=== PATIENT | male | born 1970 | race African-American/Black ===

== ENCOUNTER 2020-10-02 12:29 | Emergency (ER) | payer MEDICAID, SELFPAY ==
[2020-10-02 12:40] VITALS: BP 116/70; PULSE 90; RESP 16; TEMP 36.3; O2SAT 99; BMI 25.0
== END 2020-10-02 20:12 | disposition left against medical advice (07) ==
PROVIDERS: Emergency Provider Internal Medicine
DX: R79.89 Other specified abnormal findings of blood chemistry (principal)
CPT/HCPCS: 99281; 99282

== ENCOUNTER 2021-08-05 11:51 | Outpatient (REF) | payer OTHER, SELFPAY ==
[2021-08-05 12:29] LABS: COVID-19 Test Negative (Negative)
== END 2021-08-05 11:52 | disposition home or self-care (01) ==
LOC: HO.LAB 11:51
PROVIDERS: Visit Provider Internal Medicine
DX: Z20.822 Contact with and (suspected) exposure to COVID-19 (principal)
CPT/HCPCS: 36415; 87635; C9803

== ENCOUNTER 2022-06-26 10:46 | Inpatient (IN) | payer OTHER, SELFPAY ==
--- NOTE | ~2022-06-26 | CT_ITS ---
EXAMINATION: CT ABDOMEN AND PELVIS WITH CONTRAST CLINICAL INFORMATION: Pancreatitis. Abdominal pain. COMPARISON: None TECHNIQUE: Multidetector volumetric images were obtained from the superior aspect of the liver through the pubic symphysis following administration 85 mL of Omnipaque 350 intravenous contrast. Sagittal and coronal reformatted images were obtained on the technologist's workstation. Oral contrast: Yes This CT examination was performed using dose optimization techniques as appropriate, variously including the following: *Automated exposure control *Adjustment of mA and/or kV according to patient size (this includes techniques or standardized protocols for targeted exams where dose is matched to indication/reason for exam; i.e. extremities or head) *Use of iterative reconstruction technique DLP: 533 mGy-cm FINDINGS: LUNG BASES: The visualized lung bases are unremarkable. LIVER, GALLBLADDER, AND BILIARY TREE: The liver is normal in size and shape. The liver is slightly low in attenuation suggestive of mild fatty infiltration. No focal hepatic lesion or biliary ductal dilatation is present. The gallbladder is unremarkable with no evidence of radiopaque gallstones, gallbladder wall thickening, or obvious pericholecystic inflammatory changes. PANCREAS: The pancreas enhances normally. The pancreas is prominent. There is infiltration of the peripancreatic fat and small amount of fluid surrounding the pancreas. There is a small amount of fluid in the bilateral anterior pararenal fascia and root of the small bowel mesentery and left paracolic gutter. Findings are suggestive of mild pancreatitis. SPLEEN: Unremarkable. ADRENAL GLANDS: Unremarkable. KIDNEYS AND URETERS: The kidneys are normal in size, shape, and attenuation. No hydronephrosis, hydroureter, or calculi seen. Small left renal cyst. No imaging follow-up is indicated.. BLADDER: Unremarkable. GASTROINTESTINAL TRACT: There is mild diverticulosis of the colon. There is mild wall thickening of the left colon and dilatation of the sigmoid colon, likely reactive related to pancreatitis. Small and large bowel is otherwise normal. The appendix is normal. The stomach is normal. ABDOMINAL WALL: No significant hernia is appreciated. LYMPH NODES: Normal. VASCULAR: Unremarkable. PELVIC VISCERA: Unremarkable. OSSEOUS STRUCTURES: Degenerative changes of the spine and hip joints. CT/CT abdomen pelvis w IV con IMPRESSION: Mild acute pancreatitis. Fleischner guidelines were followed.
[2022-06-26 11:09] VITALS: BP 131/101; PULSE 100; RESP 20; TEMP 37.2; O2SAT 97; BMI 26.9
[2022-06-26 11:21] LABS: MANUAL DIFF FLAG NO
[2022-06-26 11:29] LABS: Basophils Percent Auto 0.2 % (0-2); Hematocrit 42.4 % (42.0-52.0); Hemoglobin 13.9 g/dl (14.0-18.0); Imm Gran Abs Auto 0.02 X10*3/uL (0.00-0.03); Imm Gran Pct Auto 0.3 % (0.0-0.4); Lymphocytes Absolute Auto 0.4 X10*3/uL (1.2-4.9); Lymphocytes Percent Auto 6.4 % (20-40); Mean Corpuscular HGB Conc 32.8 g/dl (31.0-36.0); Mean Corpuscular Hemoglobin 29.3 pg (27.0-33.0); Mean Corpuscular Volume 89.3 fL (80.0-98.0); Mean Platelet Volume 8.9 fL (9.4-12.4); Monocytes Absolute Auto 0.4 X10*3/uL (0.1-1.2); Monocytes Percent Auto 7.6 % (2-11); Neutrophils Percent Auto 85.5 % (45-73); Platelet Count 124 X10*3/uL (160-400); Red Blood Count 4.75 X10*6/uL (4.60-5.80); Red Cell Distribution Width 13.3 % (11.0-16.0); White Blood Count 5.8 X10*3/uL (4.8-10.8)
[2022-06-26 11:43] LABS: COVID-19 Test Negative (Negative)
[2022-06-26 11:57] LABS: Alanine Aminotransferase 18 U/L (0-40); Albumin Level 4.5 g/dL (3.5-5.0); Alkaline Phosphatase 42 U/L (39-117); Anion Gap 23 (12-20); Aspartate Amino Transferase 36 U/L (5-37); Bilirubin Direct 0.4 mg/dL (0.0-0.5); Bilirubin Total 0.9 mg/dL (0.0-1.0); Blood Urea Nitrogen 9 mg/dL (9-16); Calcium 8.8 mg/dL (8.4-10.2); Carbon Dioxide 20 mmol/L (22-29); Chloride 97 mmol/L (96-108); Estimated Glomerular Filt Rate > 60; Glucose Random 303 mg/dL (60-115); Potassium 3.6 mmol/L (3.3-5.1); Sodium 136 mmol/L (135-145); Total Protein 7.4 g/dL (6.5-8.0)
[2022-06-26 16:56] VITALS: BP 150/72; PULSE 84; RESP 18; TEMP 36.6; O2SAT 97
--- OUTSIDE RECORDS SUMMARY | 2022-06-26 18:24 | XMS_ITS | Continuity of Care Document ---
:1970 Author Organization [facility] Address [address] [place] [address]- Care Team Providers Name Role Phone Bindu BOJORQUEZ, Gladis Chi Primary Care Physician Encounter [facility] Date(s): 03/16/22 - 04/15/[address] [address] Allergies, Adverse Reactions, Alerts Substance Reaction Severity Status Dilantin rash and itching Persistent Moderate Active Vicodin Active Other Food Allergy1 Active 1pasta Immunizations Not Given Vaccine Date Status Refusal Reason pneumococcal 23-valent vaccine 12/13/17 Not Given P atient Refuses Medications acamprosate 333 mg oral delayed release tablet 1 tablet = 333 mg, By Mouth, 3 times a day, # 90 tablet, 0 Refills, Maintenance, 08/09/20 23:39:00 EST, EC Tablet, Partial fill upon patient request Start Date: 08/09/20 Status: Orderedalbuterol 90 mcg/inh inhalation powder 2 puffs, Inhalation, Every 4 hours, PRN as needed, # 1 each, 0 Refills, Maintenance, 08/09/20 23:38:00 EST, Powder, Partial fill upon patient request Start Date: 08/09/20 Status: OrderedamLODIPine 5 mg oral tablet 5 mg, 1, tablet, By Mouth, Daily, # 30 tablet, Refills 0, Maintenance, 08/09/20 23:34:00 EST, Partial fill upon patient request Start Date: 08/09/20 Status: Orderedatorvastatin 40 mg oral tablet 1 tablet = 40 mg, By Mouth, Daily at bedtime, # 30 tablet, 6 Refills, Maintenance, Tablet, Route to Pharmacy Electronically, [id number], [facility]/pharmacy #[id number] Start Date: 11/20/17 Stop Date: 06/18/18 Status: OrderedFish Oil 1000 mg oral capsule 1 capsule = 1,000 mg, By Mouth, Daily, 0 Refills, Maintenance, 08/09/20 23:37:00 EST, Capsule, Partial fill upon patient request Start Date: 08/09/20 Status: Orderedfolic acid 1 mg oral tablet 1 mg, By Mouth, Daily, # 30 tablet, Refills 0, Tot. Refills 0, Maintenance, 06/08/18 15:06:00 EDT, Route to Pharmacy Electronically, [id number], [facility]/pharmacy #[id number] Start Date: 06/08/18 Stop Date: 07/08/18 Status: Orderedlisinopril 20 mg oral tablet 40 mg, 2, tablet, By Mouth, Daily, # 30 tablet, Refills 0, Maintenance, 05/30/18 1:02:59 EDT Start Date: 05/30/18 Status: Orderedmagnesium oxide 400 mg oral tablet 1 tablet = 400 mg, By Mouth, Daily, # 7 tablet, 0 Refills, Maintenance, 08/09/20 23:36:00 EST, Tablet, Partial fill upon patient request Start Date: 08/09/20 Stop Date: 08/16/20 Status: OrderedmetFORMIN 1000 mg oral tablet 1 tablet = 1,000 mg, By Mouth, Daily, # 60 tablet, 0 Refills, Maintenance, 08/09/20 23:34:00 EST, Tablet, Partial fill upon patient request Start Date: 08/09/20 Status: OrderedMilk of Magnesia 8% oral suspension 30 mL = 2.4 Gm, By Mouth, Daily at bedtime, PRN for constipation, # 300 mL, 0 Refills, Maintenance, 08/14/20 11:28:00 EST, Suspension, [facility]/pharmacy #[id number], Partial fill upon patient request, 170, cm, 08/14/20 7:16:00 EST, Height, 83.2, kg, 08/10/20 3:2... Start Date: 08/14/20 Status: OrderedPhos-NaK Oral Powder 1 pack/packet, By Mouth, 3 times a day, 0 Refills, Maintenance, 08/09/20 23:38:00 EST, Partial fill upon patient request Start Date: 08/09/20 Status: Orderedsildenafil 100 mg oral tablet 1 tablet = 100 mg, By Mouth, Daily, 1 hour before sexual activity; khalil pay, # 10 tablet, 1 Refills,Maintenance, 03/16/22 12:41:00 EDT, Tablet, [facility], Partial fill upon patient request if the prescription is for a schedule II opi... Start Date: 03/16/22 Status: Orderedthiamine 100 mg oral tablet 100 mg, 1, tablet, By Mouth, Daily, # 30 tablet, Refills 0, Maintenance, 05/30/18 1:03:23 EDT Start Date: 05/30/18 Stop Date: 06/29/18 Status: OrderedtraZODone 50 mg oral tablet 100 mg, 2, tablet, By Mouth, Daily at bedtime, Refills 0, Maintenance, 08/14/20 11:24:00 EST, Partial fill upon patient request Start Date: 08/14/20 Status: OrderedZofran 4 mg oral tablet 1 tablet = 4 mg, By Mouth, Every 8 hours, PRN Nausea & Vomiting, # 30 tablet, 0 Refills, Maintenance, 08/14/20 11:29:00 EST, Tablet, [facility]/pharmacy #[id number], Partial fill upon patient request, 170, cm, 08/14/20 7:16:00 EST, Height, 83.2, kg, 08/10/20 3:29:... Start Date: 08/14/20 Status: Ordered Problem List Condition Effective Dates Status Health Status Informant Alcohol abuse(Confirmed) Active Depression(Confirmed) Active Diabetes mellitus(Confirmed) Active Hypertension(Confirmed) Active Social History Social History Type Response Smoking Status Current some day smoker; Tob acco user in household: No entered on: 08/29/13 Sex
--- OUTSIDE RECORDS SUMMARY | 2022-06-26 18:24 | XMS_ITS | Continuity of Care Document ---
:1970 Author Organization [facility] Address [address] [facility], 3rd Floor, [address] [place] [address]- Care Team Providers Name Role Phone Binud BOJORQUEZ, Gladis Chi Primary Care Physician Encounter [facility] [place] Date(s): 08/05/19 - 10/20/19 [facility] [address], [address] Floor, [address] [place] [address]- [facility] Attending Physician: Brayan Torres MD Admitting Physician: Brayan Torres MD Referring Physician: Gladis Ruano NP Allergies, Adverse Reactions, Alerts Substance Reaction Severity Status Dilantin rash and itching Persistent Moderate Active Vicodin Active Other Food Allergy1 Active 1pasta Immunizations Not Given Vaccine Date Status Refusal Reason pneumococcal 23-valent vaccine 12/13/17 Not Given P atient Refuses Medications atorvastatin 40 mg oral tablet 1 tablet = 40 mg, By Mouth, Daily at bedtime, # 30 tablet, 6 Refills, Maintenance, Tablet, Route to Pharmacy Electronically, [id number], [facility]/pharmacy #[id number] Start Date: 11/20/17 Stop Date: 06/18/18 Status: Orderedfolic acid 1 mg oral tablet 1 mg, By Mouth, Daily, # 30 tablet, Refills 0, Tot. Refills 0, Maintenance, 06/08/18 15:06:00 EDT, Route to Pharmacy Electronically, [id number], [facility]/pharmacy #[id number] Start Date: 06/08/18 Stop Date: 07/08/18 Status: OrderedHome BP Monitor Home BP Monitor, See Instructions, # 1 units, Refills 0, Tot. Refills 0, Maintenance, Use daily and as needed for BP check Dx: HTN I10, 09/23/17 14:58:14, Compound Start Date: 09/23/17 Status: Orderedlisinopril 20 mg oral tablet 20 mg, 1, tablet, By Mouth, Daily, # 30 tablet, Refills 0, Maintenance, 05/30/18 1:02:59 EDT Start Date: 05/30/18 Status: Orderedmelatonin 5 mg oral tablet 1 tablet = 5 mg, By Mouth, Daily at bedtime, PRN for insomnia, # 60 tablet, 0 Refills, Maintenance, 05/30/18 1:03:45 EDT, Tablet Start Date: 05/30/18 Status: Orderedmultivitamin Multiple Vitamins oral capsule 1 capsule, By Mouth, Daily, # 30 capsule, 0 Refills, Maintenance, 06/08/18 15:05:53 EDT, Capsule, 1 capsule By Mouth Daily,x30 days Start Date: 06/08/18 Stop Date: 07/08/18 Status: OrderedProtonix 40 mg oral delayed release tablet 1 tablet = 40 mg, By Mouth, 2 times a day, # 60 tablet, 0 Refills, Maintenance, 06/08/18 8:18:58 EDT, EC Tablet Start Date: 06/08/18 Stop Date: 07/08/18 Status: Orderedsertraline 50 mg oral tablet 1 tablet = 50 mg, By Mouth, Daily, # 30 tablet, 0 Refills, Maintenance, 09/23/17 8:34:52, Tablet Start Date: 09/23/17 Stop Date: 10/23/17 Status: Orderedthiamine 100 mg oral tablet 100 mg, 1, tablet, By Mouth, Daily, # 30 tablet, Refills 0, Maintenance, 05/30/18 1:03:23 EDT Start Date: 05/30/18 Stop Date: 06/29/18 Status: Ordered Problem List Condition Effective Dates Status Health Status Informant Alcohol abuse(Confirmed) Active Depression(Confirmed) Active Diabetes mellitus(Confirmed) Active Hypertension(Confirmed) Active Social History Social History Type Response Smoking Status Current some day smoker; Tob acco user in household: No entered on: 08/29/13 Sex
--- OUTSIDE RECORDS SUMMARY | 2022-06-26 18:24 | XMS_ITS | Continuity of Care Document ---
:1970 Author Organization [facility] Address [address] [facility], 3rd Floor, [address] [place] [address]- Care Team Providers Name Role Phone Bindu BOJORQUEZ, Gladis Chi Primary Care Physician [place] [facility] [place] Date[place]s): 09/20/19 - 09/30/19 [facility] [address] [facility], 3rd Floor, [address] [place] [address] [facility] Attending Physician: Geovanna Mcclain Admitting Physician: Geovanna Mcclain Referring Physician: AdmtrGeovanna Allergies, Adverse Reactions, Alerts Substance Reaction Severity [...] Refills, Maintenance, Tablet, Route to Pharmacy Electronically, [id number], [facility]/pharmacy #[id number] Start Date: 11/20/17 Stop Date: 06/18/18 Status: Orderedfolic acid 1 mg oral tablet 1 mg, By Mouth, Daily, # 30 tablet, Refills 0, Tot. Refills 0, Maintenance, 06/08/18 15:06:00 EDT, Route to Pharmacy Electronically, [id number], [facility]/pharmacy #[id number] Start Date: 06/08/18 Stop Date: 07/08/18 [...]
--- OUTSIDE RECORDS SUMMARY | 2022-06-26 18:24 | XMS_ITS | Continuity of Care Document ---
:1970 Author Organization [facility] Address [address] [place] [address]- Care Team Providers Name Role Phone Gladis Ruano NP Primary Care Physician Encounter [facility] Date(s): 07/12/21 - 08/21/[address] [address]- Attending Physician: Not on Staff, Attending MD Referring Physician: Gladis Ruano NP Allergies, [...] Refills, Maintenance, Tablet, Route to Pharmacy Electronically, [id number], [facility]/pharmacy #[id number] Start Date: 11/20/17 Stop Date: 06/18/18 [...] 06/08/18 15:06:00 EDT, Route to Pharmacy Electronically, [id number], [facility]/pharmacy #[id number] Start Date: 06/08/18 Stop Date: [...] 0 Refills, Maintenance, 08/14/20 11:28:00 EST, Suspension, [facility]/pharmacy #[id number], Partial fill upon patient request, 170, cm, 08/14/20 7:16:00 EST, Height, 83.2, kg, 08/10/20 3:2... Start Date: 08/14/20 Status: OrderedPhos-NaK Oral Powder 1 pack/packet, By Mouth, 3 times a day, 0 Refills, Maintenance, 08/09/20 23:38:00 EST, Partial fill upon patient request Start Date: 08/09/20 Status: Orderedthiamine 100 mg oral tablet 100 [...] 0 Refills, Maintenance, 08/14/20 11:29:00 EST, Tablet, [facility]/pharmacy #[id number], Partial fill upon patient request, 170, cm, [...]
--- OUTSIDE RECORDS SUMMARY | 2022-06-26 18:24 | XMS_ITS | Continuity of Care Document ---
:1970 Author Organization [facility] Address [address] [place] [address]- Care Team Providers Name Role Phone Bindu BOJORQUEZ, Gladis Chi Primary Care Physician Encounter [facility] Date(s): 04/23/22 - 05/23/[address] [address] Allergies, Adverse Reactions, Alerts Substance Reaction Severity [...] Refills, Maintenance, Tablet, Route to Pharmacy Electronically, [id number], [facility]/pharmacy #[id number] Start Date: 11/20/17 Stop Date: [...] 06/08/18 15:06:00 EDT, Route to Pharmacy Electronically, [id number], [facility]/pharmacy #[id number] Start Date: 06/08/18 Stop Date: [...] 0 Refills, Maintenance, 08/14/20 11:28:00 EST, Suspension, [facility]/pharmacy #[id number], Partial fill upon patient request, 170, [...] khalil pay, # 10 tablet, 1 Refills,Maintenance, 04/23/22 8:09:00 EDT, Tablet, [facility] Partial fill upon patient request if the prescription is for a schedule II opio... Start Date: 04/23/22 Status: Orderedsildenafil 100 mg oral tablet 1 tablet = 100 mg, By Mouth, Daily, 1 hour before sexual activity; khalil pay, # 10 tablet, 1 Refills,Maintenance, 03/16/22 12:41:00 EDT, Tablet, [facility], Partial fill upon patient request if the [...] 0 Refills, Maintenance, 08/14/20 11:29:00 EST, Tablet, [facility]/pharmacy #[id number], Partial fill upon patient request, 170, cm, 08/14/20 7:16:00 EST, Height, 83.2, kg, 08/10/20 3:29:... Start Date: 08/14/20 Status: Ordered Problem List Condition Effective Dates Status Health Status Informant Alcohol abuse(Confirmed) Active Depression(Confirmed) Active Diabetes mellitus(Confirmed) Active Hypertension(Confirmed) Active Social History Social History Type Response Smoking Status Current some day smoker; Tob acco user in household: No entered on: 08/29/13 Sex Care Team PersonnelName: Gladis Ruano NP Address: [address] [place] [address]-
--- OUTSIDE RECORDS SUMMARY | 2022-06-26 18:24 | XMS_ITS | Continuity of Care Document ---
:1970 Author Organization [facility] Address [address] [facility], 3rd Floor, [address] [place] [address]- Care Team Providers Name Role Phone Bindu BOJORQUEZ, Gladis M Primary Care Physician Encounter [facility] [place] Date(s): 07/26/19 - 10/13/19 [facility] [address], [address], [address] [place] [address] [facility] Attending Physician: Yovany Mcmanus Admitting Physician: Yovany Mcmanus Allergies, Adverse Reactions, Alerts Substance Reaction Severity [...] Refills, Maintenance, Tablet, Route to Pharmacy Electronically, [id number], [facility]/pharmacy #[id number] Start Date: 11/20/17 Stop Date: 06/18/18 Status: Orderedfolic acid 1 mg oral tablet 1 mg, By Mouth, Daily, # 30 tablet, Refills 0, Tot. Refills 0, Maintenance, 06/08/18 15:06:00 EDT, Route to Pharmacy Electronically, [id number], [facility]/pharmacy #[id number] Start Date: 06/08/18 Stop Date: [...]
--- OUTSIDE RECORDS SUMMARY | 2022-06-26 18:24 | XMS_ITS | Continuity of Care Document ---
:1970 Author Organization [facility] Address [address] [place] [address]- Care Team Providers Name Role Phone Bindu BOJORQUEZ, Gladis Chi Primary Care Physician Encounter [facility] Date(s): 09/19/21 - 10/19/[address] [address] Attending Physician: Geovanna Mcclain Admitting Physician: AdmGeovanna herzog Referring Physician: AdmtrGeovanna Allergies, Adverse Reactions, Alerts [...] Refills, Maintenance, Tablet, Route to Pharmacy Electronically, [id number], [facility]/pharmacy #[id number] Start Date: 11/20/17 Stop Date: 06/18/18 [...] 06/08/18 15:06:00 EDT, Route to Pharmacy Electronically, [id number], [facility]/pharmacy #[id number] Start Date: 06/08/18 Stop Date: 07/08/18 [...] 0 Refills, Maintenance, 08/14/20 11:28:00 EST, Suspension, [facility]/pharmacy #[id number], Partial fill upon patient request, 170, [...] 0 Refills, Maintenance, 08/14/20 11:29:00 EST, Tablet, [facility]/pharmacy #[id number], Partial fill upon patient request, 170, cm, [...]
--- NOTE | 2022-06-26 18:26 | ED_ITS ---
HPI - Abdominal Pain General Chief Complaint: Abdominal Pain Stated Complaint: Pancreatitis Time Seen by Provider: 06/26/22 18:18 Source: patient Mode of arrival: ambulatory Limitations: no limitations History of Present Illness HPI narrative: 52-year-old alcoholic with history of pancreatitis presents to emergency department after drinking heavily and having recurrent abdominal pain he states he has having nausea vomiting and recurrent pain he denies any fevers chills denies any falls or injuries. Patient states that when he works for his pain as Demerol and morphine does not work. MD elicited complaint: abdominal pain Related Data Allergies Allergy/AdvReac Type Severity Reaction Status Date / Time fish derived [fish] Allergy Unknown Verified 10/02/20 12:44 phenytoin [From Dilantin] Allergy Unknown Verified 10/02/20 12:44 acetaminophen [From Vicodin] AdvReac Unknown Verified 10/02/20 12:44 hydrocodone [From Vicodin] AdvReac Unknown Verified 10/02/20 12:44 Review of Systems Review of Systems Review of systems: General: Patient denies any fever chills recent illness or falls Musculoskeletal: Denies back pain or body aches or other injuries HEENT: denies headache, runny nose, ear pain Respiratory: denies shortness of breath, cough Cardiovascular: no chest pain or palpitations : denies dysuria, frequency Abdomen: nausea vomiting upper abdominal pain Extremities: no swelling, no pain Skin: no diaphoresis Yes all other systems are reviewed and are negative PMFSH Past Medical History Medical History (Updated 06/26/22 @ 19:26 by Matthew Ellington DO) Chronic pancreatitis Diabetes 1.5, managed as type 2 Hypertension Social History Social History Advance Directives: No Advance Directives Information Provided: No Physical Exam ED Vital Signs: Vital Signs - 24 hr 06/26/22 11:09 06/26/22 16:56 06/26/22 18:51 Temperature 98.9 F 98 F Pulse Rate 100 84 Respiratory Rate 20 18 18 Blood Pressure 131/101 H 150/72 H Pulse Oximetry 97 97 Oxygen Delivery Method Room Air Room Air BMI result Body Mass Index 26.9 General: Well-appearing well-nourished in no signs of distress HEENT: Normocephalic atraumatic? Neck: No signs of JVD, no masses no tenderness or lymphadenopathy Cardiovascular: Regular rate and rhythm Respiratory: Clear to auscultation bilaterally Abdomen: Soft nontender no masses Extremities: Normal pedal pulses no signs of edema Skin: Dry warm no rashes Back: No tenderness full ROM MDM - Abdominal Pain MDM Narrative Medical decision making narrative: Patient with abdominal pain alcohol abuse and pancreatitis I will give fluids morphine haldol and send for CT labs are consistent with pancreatitis. He has known pancreatitis but continues to drink. He thought it would heal itself. I ex plained that the pancreas helps digest things he went out to describe his most recent emesis and was concerned he had digested his stomach. i explained it was not going to show up in his emesis most likely but re-educated him about avoiding alcohol in the future. I will continue with two liters of fluid and pain control. CT still pending I ran the case by medicine and will be admitted. Going to CT at this time. Differential Diagnosis Differential diagnosis: Likely abdominal pain and gastritis Differential diagnosis narrative:: alcoholic pancreatitis Medical Records Attestation: I reviewed the patient's medical records. Lab Data Attestation: I reviewed the patient's lab results. Result diagrams: 06/26/22 11:16 06/26/22 11:16 Labs: Lab Results 06/26/22 06/26/22 06/26/22 Range/Units 11:16 11:16 11:16 WBC 5.8 (4.8-10.8) X10*3/uL RBC 4.75 (4.60-5.80) X10*6/uL Hgb 13.9 L (14.0-18.0) g/dl Hct 42.4 (42.0-52.0) % MCV 89.3 (80.0-98.0) fL MCH 29.3 (27.0-33.0) pg MCHC 32.8 (31.0-36.0) g/dl RDW 13.3 (11.0-16.0) % Plt Count 124 L (160-400) X10*3/uL MPV 8.9 L (9.4-12.4) fL Immature Gran % (Auto) 0.3 (0.0-0.4) % Neut % (Auto) 85.5 H (45-73) % Lymph % (Auto) 6.4 L (20-40) % Grainger % (Auto) 7.6 (2-11) % Eos % (Auto) 0.0 (0-4) % Baso % (Auto) 0.2 (0-2) % Lymph # (Auto) 0.4 L (1.2-4.9) X10*3/uL Grainger # (Auto) 0.4 (0.1-1.2) X10*3/uL Eos # (Auto) 0.0 (0.0-0.4) X10*3/uL Baso # (Auto) 0.0 (0.0-0.2) X10*3/uL Abs Immat Gran (auto) 0.02 (0.00-0.03) X10*3/uL Absolute Neuts (auto) 5.0 (2.0-8.3) x10*3/uL Absolute Nucleated RBC 0.000 (0.0-0.012) X10*3/uL Nucleated RBC % (auto) 0.0 (0.0-0.2) /100WBC Sodium 136 (135-145) mmol/L Potassium 3.6 (3.3-5.1) mmol/L Chloride 97 (96-108) mmol/L Carbon Dioxide 20 L (22-29) mmol/L Anion Gap 23 H (12-20) BUN 9 (9-16) mg/dL Creatinine 1.14 (0.5-1.4) mg/dL Estim Creat Clear Calc 70.0 Estimated GFR > 60 Random Glucose 303 H (60-115) mg/dL Calcium 8.8 (8.4-10.2) mg/dL Total Bilirubin 0.9 (0.0-1.0) mg/dL Direct Bilirubin 0.4 (0.0-0.5) mg/dL AST 36 (5-37) U/L ALT 18 (0-40) U/L Alkaline Phosphatase 42 (39-117) U/L Total Protein 7.4 (6.5-8.0) g/dL Albumin 4.5 (3.5-5.0) g/dL Lipase 2112 H (8-78) U/L Ethyl Alcohol < 10 mg/dL COVID-19 ([facility]ETH) Negative (Negative) COVID-19 Clin Com See Note Discharge Plan Discharge Clinical Impression: Pancreatitis Patient Disposition: Admitted as Observation
[2022-06-26 18:47] LABS: Ethanol < 10 mg/dL
[2022-06-26] MEDS: 0.9 % Sodium Chloride 1,000 ML 999 ML IV ×2 (18:49→22:09)
[2022-06-26] MEDS: Haloperidol Lactate 5 MG/ML VIAL IVPUSH (18:50)
[2022-06-26 18:51] VITALS: RESP 18
[2022-06-26] MEDS: diphenhydrAMINE HCL 50 MG/ML VIAL 25 MG IVPUSH (18:51)
[2022-06-26] MEDS: Morphine Sulfate 4 MG/ML CARTRIDGE IVPUSH (18:51)
[2022-06-26 19:13] LABS: Lipase 2112 U/L (8-78)
[2022-06-26] MEDS: iohexoL 350 MG/ML 100 ML INFUS..BTL IV (20:09)
[2022-06-26 20:18] VITALS: BP 152/74; PULSE 74; RESP 16; TEMP 36.7; O2SAT 97
--- NOTE | 2022-06-26 20:23 | P.HPHOSP_ITS ---
History of Present Illness Date of Service: 06/26/22 Attending physician on admission: Elise Hammonds Chief Complaint: abd pain, tremors, sweats 52-year-old male with history of hypertension, controlled ubo-ffvgbwv-aamfxcmmt type 2 diabetes with last A1c of 6.1%, 2ppd cigarette smoker, history of pancreatitis, and alcohol dependence presented to the ED earlier today for evaluation of diffuse 9/10 abdominal pain radiating to the back bilaterally ongoing for 1 day as well as alcohol withdrawal. He states he consumes 5 24 oz beers daily, last drink was yesterday. He has been experiencing nausea and recurrent episodes of vomiting. States he has had 5 episodes of non bloody emesis today. He has also been experiencing tremors, anxiety and agitation, sweats, occasional palpitations as well as diarrhea. States he has had decreased oral intake over the last 2 weeks. He states he has been hospitalized at various other facilities for acute pancreatitis but continues consuming alcoh ol. He states he has never had a withdrawal seizure. Abd/Ct pending. Lipase >2100. Hematology studies normal. Renal function and lytes stable. Glucose 303. Hepatic function normal. VSS. To be admitted for acute alcohol withdrawal and acute pancreatitis. Review of Systems Review of Systems: General: No fevers, malaise, unintentional weight loss Cardiovascular: No chest pain, palpitations, or leg edema Respiratory: No shortness of breath, wheezing, cough GI: +abdominal pain, +N/V/D. No constipation, melena, hematochezia : No dysuria, hematuria, increased urinary frequency Neuro: No headaches, weakness, paresthesias Psych: +etoh dependence. No illicit drug use Skin: No rashes or lesions COUNTS INCLUDE 234 BEDS AT THE [facility] Medical History (Updated 06/26/22 @ 20:36 by WAGNER Atwood) Acute on chronic pancreatitis Alcohol dependence Chronic pancreatitis Diabetes 1.5, managed as type 2 Hypertension Family History (Updated 06/26/22 @ 20:34 by WAGNER Atwood) Mother Alcohol dependence Diabetes CAD (coronary artery disease) HTN (hypertension) Father Alcohol dependence Social History Advance Directives: No Advance Directives Information Provided: No Meds Allergies Allergy/AdvReac Type Severity Reaction Status Date / Time fish derived [fish] Allergy Unknown Verified 10/02/20 12:44 phenytoin [From Dilantin] Allergy Unknown Verified 10/02/20 12:44 acetaminophen [From Vicodin] AdvReac Unknown Verified 10/02/20 12:44 hydrocodone [From Vicodin] AdvReac Unknown Verified 10/02/20 12:44 Active Medications: Current Medications Docusate Sodium (Docusate Sodium 100 Mg Capsule) 100 mg PO BID PRN PRN Reason: Constipation Enoxaparin Sodium (Enoxaparin Sodium 40 Mg/0.4 Ml Syringe) 40 mg SUBCUT Q24H TAMMY Hydromorphone HCl (Hydromorphone Hcl 1 Mg/Ml Syringe) 0.5 mg IVPUSH Q4H PRN; Protocol PRN Reason: Pain, Severe (Pain Scale 7-10) Ondansetron HCl (Ondansetron Hcl 4 Mg/2 Ml Vial) 4 mg IVPUSH Q8H PRN PRN Reason: Nausea and Vomiting Oxycodone HCl (Oxycodone Hcl Immed Release 5 Mg Tablet) 5 mg PO Q6H PRN PRN Reason: Pain, Moderate (Pain Scale 4-6 Pharmacy Consult (Consult Rx Etoh Phenob Im/Po) 1 each MISCELLANE ONCE PRN; Protocol PRN Reason: Consult order Sodium Chloride (0.9 % Sodium Chloride Flush 3 Ml Syringe) 3 ml IVFLUSH QSHIFT TAMMY Physical Exam Vital Signs and Narrative: Vital Signs: Last Vital Signs Temp 98 F 06/26/22 16:56 Pulse 84 06/26/22 16:56 Resp 18 06/26/22 18:51 BP 150/72 H 06/26/22 16:56 Pulse Ox 97 06/26/22 16:56 O2 Del Method 06/26/22 16:56 BMI result Body Mass Index 26.9 Constitutional - Awake and Alert, No apparent distress Eyes - PERRLA, EOMI Cardiovascular - S1S2, RRR, No edema Respiratory - Normal lung expansion, Normal respiratory effort, No respiratory distress, CTA bilaterally Gastrointestinal - Diffuse ttp with voluntary guarding. ND; +BS; Extremities - no calf tenderness bilaterally, no swelling Skin - Warm/clammy Neurological - Alert but drowsy & oriented x3, CN II-XII in tact, 5/5 strength BUE and BLE. Mild tremors b/l hands Psychological - Appropriate affect Results Labs CBC and Chem 7: 06/26/22 11:16 06/26/22 11:16 Labs: Laboratory Results - last 24 hr 10/06/22 10/06/22 10/06/22 11:16 11:16 11:16 MCV 89.3 MCH 29.3 MCHC 32.8 RDW 13.3 Plt Count 124 L MPV 8.9 L Immature Gran % (Auto) 0.3 Neut % (Auto) 85.5 H Lymph % (Auto) 6.4 L [place] % (Auto) 7.6 Eos % (Auto) 0.0 Baso % (Auto) 0.2 Lymph # (Auto) 0.4 L [place] # (Auto) 0.4 Eos # (Auto) 0.0 Baso # (Auto) 0.0 Abs Immat Gran (auto) 0.02 Absolute Neuts (auto) 5.0 Absolute Nucleated RBC 0.000 Nucleated RBC % (auto) 0.0 Anion Gap 23 H Estim Creat Clear Calc 70.0 Estimated GFR > 60 Random Glucose 303 H Calcium 8.8 Total Bilirubin 0.9 Direct Bilirubin 0.4 AST 36 ALT 18 Alkaline Phosphatase 42 Total Protein 7.4 Albumin 4.5 Lipase 2112 H Ethyl Alcohol < 10 COVID-19 (LIZBETH) Negative COVID-19 Clin Com See Note Assessment and Plan (1) Acute on chronic pancreatitis: Status: Acute (2) Alcohol withdrawal: Status: Acute Plan 52-year-old male with history of hypertension, controlled nhv-astiezm-vzafzyewz type 2 diabetes with last A1c of 6.1%, 2ppd cigarette smoker, history of pancreatitis, and alcohol dependence admitted for abdominal pain with acute on chronic pancreatitis and acute alcohol withdrawal. 1- Acute on chronic pancreatitis r/t alcohol abuse -Multiple admission for pancreatitis -Lipase >2100 -Abd ct/pelvis pending. ?further pathology with dilation large bowel on my review -Aggressive IVF with LR -Follow lipase -NPO for now, advance diet as tolerated -Pain management on pain scale with dilaudid and oxycodone -Ondansetron prn nausea 2-Acute alcohol withdrawal 5 24 oz beers daily, last drink yesterday -tremors, sweats, aggitation, anxiety. No tachycardia -CIWA scale -Phenobarb protocol initiated -no hx etoh w/d seizure -Continue home naltrexone -Addiction consult placed 3-HTN -Continue home meds 4-Type 2 diabetes- noninsulin dependent -Last A1c 6.1% per pt -POC glucose -NPO for now -Humalog SSI 5-Nicotine dependence -NRT ordered DVT proph- lovenox Full code Pt requires inpt stay at least two midnights for management acute pancreatitis requiring IV fluids and for management of acute etoh withdrawal on phenobarb protocol Quality Stroke Does the patient have a stroke diagnosis?: No VTE Prior VTE?: No VTE Risk Level:: Medical - moderate - high VTE Device Contraindication: Treatment Not Indicated VTE Drug Contraindication: N/A - Med Ordered
--- OUTSIDE RECORDS SUMMARY | 2022-06-26 20:27 | XMS_ITS | Continuity of Care Document ---
:1970 Author Organization [facility] Address [address] [place] [address]- Care Team Providers Name Role Phone Bindu BOJORQUEZ, Gladis Chi Primary Care Physician [place] [facility] [place] [id number] Date(s): 07/22/21 - 08/21/[address] [address]- Attending Physician: Geovanna Mcclain Admitting Physician: AdmGeovanna [...] Refills, Maintenance, Tablet, Route to Pharmacy Electronically, [id number], [facility]/pharmacy #[id number] Start Date: 11/20/17 Stop [...] 06/08/18 15:06:00 EDT, Route to Pharmacy Electronically, [id number], [facility]/pharmacy #[id number] Start Date: 06/08/18 Stop [...] 0 Refills, Maintenance, 08/14/20 11:28:00 EST, Suspension, [facility]/pharmacy #[id number], Partial fill upon patient request, [...] 0 Refills, Maintenance, 08/14/20 11:29:00 EST, Tablet, [facility]/pharmacy #[id number], Partial fill upon patient request, [...]
[2022-06-26 20:47] LABS: Glucose, Whole Blood 170 mg/dL (60-115)
--- NOTE | 2022-06-26 21:07 | PC.NURSE ---
Care delayed due to this RN being in another room with a critical pt.
--- NOTE | 2022-06-26 21:23 | PC.NURSE ---
Called Pharmacy for Valium. Pharmacist says that there is no Valium in-house. Notifying Jc Ellington MD to change med.
[2022-06-26 21:42] LABS: Lipase 1719 U/L (8-78)
[2022-06-26] MEDS: Enoxaparin Sodium 40 MG/0.4 ML SYRINGE SUBCUT (22:10)
[2022-06-26] MEDS: PHENobarbitaL sodium 130 MG/ML IM ONCE 210 MG IM (22:11)
[2022-06-26] MEDS: Insulin Lispro 100 UNIT/ML 3 ML VIAL SUBCUT (22:21)
[2022-06-26] MEDS: oxyCODONE HCl Immed Release 5 MG TABLET PO (22:21)
[2022-06-26] MEDS: Lactated Ringers 1,000 ML 150 ML IVCONT (23:33)
[2022-06-26 23:41] VITALS: BP 137/83; PULSE 83; RESP 16; TEMP 36.8; O2SAT 98
[2022-06-27] MEDS: PHENobarbitaL sodium 130 MG/ML VIAL IM Q3Hx2 160 MG IM ×2 (00:51→04:06)
[2022-06-27] MEDS: 0.9 % Sodium Chloride Flush 3 ML SYRINGE IVFLUSH ×3 (00:52→17:14)
[2022-06-27] MEDS: Lactated Ringers 1,000 ML 150 ML IVCONT ×2 (04:07→10:00)
[2022-06-27 07:18] VITALS: BP 142/85; PULSE 70; RESP 19; TEMP 36.8; O2SAT 94
[2022-06-27 07:18] LABS: Glucose, Whole Blood 139 mg/dL (60-115)
[2022-06-27 07:24] LABS: Lipase 872 U/L (8-78)
--- NOTE | 2022-06-27 07:38 | PC.NURSE ---
rn to rn report given to charisse. pt aware of plan of care for transfer to room 376.
[2022-06-27] MEDS: PHENobarbitaL 15 MG TABLET 45 MG PO ×2 (07:56→21:03)
[2022-06-27] MEDS: oxyCODONE HCl Immed Release 5 MG TABLET PO ×2 (07:56→19:25)
[2022-06-27] MEDS: Folic Acid 1 MG TABLET PO (07:56)
[2022-06-27] MEDS: ondansetron HCL 4 MG/2 ML VIAL IVPUSH (07:57)
[2022-06-27] MEDS: Nicotine 21 MG PATCH.TD24 TRANSDERMA (07:57)
[2022-06-27] MEDS: Thiamine HCL 100 MG TABLET PO (07:57)
[2022-06-27] MEDS: Docusate Sodium 100 MG CAPSULE PO (07:57)
[2022-06-27 08:00] VITALS: BP 152/90; PULSE 75; RESP 19; TEMP 36.6; O2SAT 96
[2022-06-27] MEDS: HYDROmorphone HCl 1 MG/ML SYRINGE 0.5 MG IVPUSH ×3 (09:21→21:04)
--- NOTE | 2022-06-27 10:28 | PHA.MEDREC ---
Pharmacy Consult ? Medication Reconciliation Pharmacy has completed the medication reconciliation. CONTACTED [facility] AND SPOKE WITH PATIENT. PT STATES HE IS STILL TAKING METFORMIN AND AMLODIPINE EVEN THOUGH HE HAS NOT FILLED THEM SINCE ABRAN
[2022-06-27 10:52] VITALS: BP 159/87; PULSE 66; RESP 18; TEMP 36.6; O2SAT 93
--- NOTE | 2022-06-27 10:56 | P.PNIM_ITS ---
Subjective Subjective Date of Service: 06/27/22 Interval History: Pt seen for follow up on acute pancreatitis and acute alcohol withdrawal Still reporting 9/10 diffuse abdominal pain with radiation to the back. Requesting pain meds. No further epidodes vomiting. Nausea is controlled. Feels etoh w/d symptoms are improved. Still mild tremor hands and feet but anxiety/aggitation improved. Review of Systems General: No fevers, malaise, unintentional weight loss Cardiovascular: No chest pain, palpitations, or leg edema Respiratory: No shortness of breath, wheezing, cough GI: +abdominal pain, +N/V/D. No constipation, melena, hematochezia : No dysuria, hematuria, increased urinary frequency Neuro: No headaches, weakness, paresthesias Psych: +etoh dependence. No illicit drug use Skin: No rashes or lesions Physical Exam Vital Signs: Vital Signs: Last Vital Signs Temp 98 F 06/27/22 10:52 Pulse 66 06/27/22 10:52 Resp 18 06/27/22 10:52 BP 159/87 H 06/27/22 10:52 Pulse Ox 93 06/27/22 10:52 O2 Del Method 06/27/22 10:52 BMI result Body Mass Index 26.9 Constitutional - Awake and Alert, No apparent distress Eyes - PERRLA, EOMI Cardiovascular - S1S2, RRR, No edema Respiratory - Normal lung expansion, Normal respiratory effort, No respiratory distress, CTA bilaterally Gastrointestinal - diffuse ttp. ND; +BS; No rebound or guarding Extremities - no calf tenderness bilaterally, no swelling Skin - Warm/Dry Neurological - Alert & oriented x3, No focal deficit Psychological - Appropriate affect Objective Data Active Medications Amlodipine Besylate (Amlodipine Besylate 5 Mg Tablet) 5 mg PO DAILY [facility]; Protocol Atorvastatin Calcium (Atorvastatin Calcium 40 Mg Tablet) 40 mg PO DAILY [facility] Dextrose (Dextrose 50 % 25 Gm/50 Ml Syringe) 25 gm IVPUSH Q15M PRN; Protocol PRN Reason: per Hypoglycemia Standing Ord. Docusate Sodium (Docusate Sodium 100 Mg Capsule) 100 mg PO BID PRN PRN Reason: Constipation Last Admin: 06/27/22 07:57 Dose: 100 mg Documented By: DEMARCUS Enoxaparin Sodium (Enoxaparin Sodium 40 Mg/0.4 Ml Syringe) 40 mg SUBCUT Q24H TAMMY Last Admin: 06/26/22 22:10 Dose: 40 mg Documented By: ALYSSA Folic Acid (Folic Acid 1 Mg Tablet) 1 mg PO DAILY [facility] Last Admin: 06/27/22 07:56 Dose: 1 mg Documented By: DEMARCUS Folic Acid (Folic Acid 1 Mg Tablet) 1 mg PO DAILY [facility] Glucose (Glucose Gel 15 Gm Gel..Gram.) 15 gm PO Q15M PRN; Protocol PRN Reason: per Hypoglycemia Standing Ord. Hydromorphone HCl (Hydromorphone Hcl 1 Mg/Ml Syringe) 0.5 mg IVPUSH Q4H PRN; Protocol PRN Reason: Pain, Severe (Pain Scale 7-10) Last Admin: 06/27/22 09:21 Dose: 0.5 mg Documented By: IVANEY Lactated Ringer's (Lr) 1,000 mls @ 150 mls/hr IVCONT .Q6H40M [facility] Last Admin: 06/27/22 10:00 Dose: 150 mls/hr Documented By: DELANEY Insulin Human Lispro (Insulin Lispro 100 Unit/Ml 3 Ml Vial) 0 unit SUBCUT QIDACHS [facility]; Protocol Last Admin: 06/27/22 07:46 Dose: Not Given Documented By: DEMARCUS Non-Admin Reason: No Insulin Coverage Magnesium Oxide (Magnesium Oxide 400 Mg Tablet) 400 mg PO DAILY [facility] Metoprolol Succinate (Metoprolol Succinate Er 50 Mg Tab.Er.24h) 50 mg PO DAILY [facility]; Protocol Multivitamins/Vitamin C (Multivitamin Tablet) 1 tab PO DAILY [facility] Naltrexone HCl (Naltrexone Hcl 50 Mg Tablet) 50 mg PO DAILY [facility] Nicotine (Nicotine 21 Mg Patch.Td24) 21 mg TRANSDERMA DAILY [facility] Last Admin: 06/27/22 07:57 Dose: 21 mg Documented By: DEMARCUS Non-Formulary Medication (Ferrous Sulfate [Ferosul]) 1 tab PO DAILY [facility] Ondansetron HCl (Ondansetron Hcl 4 Mg/2 Ml Vial) 4 mg IVPUSH Q8H PRN PRN Reason: Nausea and Vomiting Last Admin: 06/27/22 07:57 Dose: 4 mg Documented By: DEMARCUS Oxycodone HCl (Oxycodone Hcl Immed Release 5 Mg Tablet) 5 mg PO Q6H PRN PRN Reason: Pain, Moderate (Pain Scale 4-6 Last Admin: 06/27/22 07:56 Dose: 5 mg Documented By: DEMARCUS Pharmacy Consult (Consult Rx Etoh Phenob Im/Po) 1 each MISCELLANE ONCE PRN; Protocol PRN Reason: Consult order Phenobarbital (Phenobarbital 15 Mg Tablet) 45 mg PO BID [facility] Stop: 06/28/22 21:01 Last Admin: 06/27/22 07:56 Dose: 45 mg Documented By: DEMARCUS Phenobarbital (Phenobarbital 15 Mg Tablet) 15 mg PO BID [facility] Stop: 06/30/22 21:01 Phenobarbital (Phenobarbital 15 Mg Tablet) 15 mg PO DAILY [facility] Stop: 07/02/22 09:01 Sodium Chloride (0.9 % Sodium Chloride Flush 3 Ml Syringe) 3 ml IVFLUSH QSHIFT [facility] Last Admin: 06/27/22 07:47 Dose: 3 ml Documented By: DEMARCUS Thiamine HCl (Thiamine Hcl 100 Mg Tablet) 100 mg PO DAILY [facility] Last Admin: 06/27/22 07:57 Dose: 100 mg Documented By: DEMARCUS Labs CBC & Chem 7: 06/26/22 11:16 06/26/22 11:16 Labs: Laboratory Results - last 24 hr 06/26/22 06/26/22 06/26/22 11:16 11:16 11:16 MCV 89.3 MCH 29.3 MCHC 32.8 RDW 13.3 Plt Count 124 L MPV 8.9 L Immature Gran % (Auto) 0.3 Neut % (Auto) 85.5 H Lymph % (Auto) 6.4 L [place] % (Auto) 7.6 Eos % (Auto) 0.0 Baso % (Auto) 0.2 Lymph # (Auto) 0.4 L [place] # (Auto) 0.4 Eos # (Auto) 0.0 Baso # (Auto) 0.0 Abs Immat Gran (auto) 0.02 Absolute Neuts (auto) 5.0 Absolute Nucleated RBC 0.000 Nucleated RBC % (auto) 0.0 Anion Gap 23 H Estim Creat Clear Calc 70.0 Estimated GFR > 60 POC Glucose Random Glucose 303 H Calcium 8.8 Total Bilirubin 0.9 Direct Bilirubin 0.4 AST 36 ALT 18 Alkaline Phosphatase 42 Total Protein 7.4 Albumin 4.5 Lipase 2112 H Ethyl Alcohol < 10 COVID-19 (LIZBETH) Negative COVID-19 [facility] Com See Note 06/26/22 06/26/22 06/27/22 20:38 20:52 06:28 MCV MCH MCHC RDW Plt Count MPV Immature Gran % (Auto) Neut % (Auto) Lymph % (Auto) [place] % (Auto) Eos % (Auto) Baso % (Auto) Lymph # (Auto) [place] # (Auto) Eos # (Auto) Baso # (Auto) Abs Immat Gran (auto) Absolute Neuts (auto) Absolute Nucleated RBC Nucleated RBC % (auto) Anion Gap Estim Creat Clear Calc Estimated GFR POC Glucose 170 H Random Glucose Calcium Total Bilirubin Direct Bilirubin AST ALT Alkaline Phosphatase Total Protein Albumin Lipase 1719 H 872 H Ethyl Alcohol COVID-19 (LIZBETH) [employer]-19 [place] 06/27/22 07:12 MCV MCH MCHC RDW Plt Count MPV Immature Gran % (Auto) Neut % (Auto) Lymph % (Auto) [place] % (Auto) Eos % (Auto) Baso % (Auto) Lymph # (Auto) [place] # (Auto) Eos # (Auto) Baso # (Auto) Abs Immat Gran (auto) Absolute Neuts (auto) Absolute Nucleated RBC Nucleated RBC % (auto) Anion Gap Estim Creat Clear Calc Estimated GFR POC Glucose 139 H Random Glucose Calcium Total Bilirubin Direct Bilirubin AST ALT Alkaline Phosphatase Total Protein Albumin Lipase Ethyl Alcohol COVID-19 (LIZBETH) [employer]HelpAround19 [place] Assessment and Plan (1) Acute on chronic pancreatitis: Status: Acute (2) Alcohol withdrawal: Status: Acute Plan 52-year-old male with history of hypertension, controlled hxn-zzauowj-szahzdcmy type 2 diabetes with last A1c of 6.1%, 2ppd cigarette smoker, history of pancreatitis, and alcohol dependence admitted for abdominal pain with acute on chronic pancreatitis and acute alcohol withdrawal. 1- Acute on chronic pancreatitis r/t alcohol abuse -Lipase trending down -Abd ct/pelvis shows acute pancreatitis with reactive dilitation colon -Continue aggressive IVF with LR -Follow lipase -Advance diet to clears -Pain management on pain scale with dilaudid and oxycodone -Ondansetron prn nausea 2-Acute alcohol withdrawal -W/d symptoms improving. No seizures. -Continue CIWA scale -Continue phenobarb per protocol -Continue home naltrexone -Addiction consult pending 3-HTN -Continue home meds 4-Type 2 diabetes- noninsulin dependent -Last A1c 6.1% per pt -POC glucose -NPO for now -Humalog SSI -Hold metformin 5-Nicotine dependence -NRT ordered DVT proph- lovenox Full code Pt requires continued inpatient stay for management acute pancreatitis requiring IV fluids and for management of acute etoh withdrawal on phenobarb protocol at risk for seizures. Quality Stroke Does the patient have a stroke diagnosis?: No VTE Prior VTE?: No VTE Risk Level:: Medical - moderate - high VTE Device Contraindication: Treatment Not Indicated VTE Drug Contraindication: N/A - Med Ordered
[2022-06-27 11:11] LABS: Glucose, Whole Blood 133 mg/dL (60-115)
[2022-06-27] MEDS: Magnesium Oxide 400 MG TABLET PO (11:49)
[2022-06-27] MEDS: Naltrexone HCl 50 MG TABLET PO (11:49)
[2022-06-27] MEDS: Multivitamin TABLET 1 TAB PO (11:50)
[2022-06-27] MEDS: Ferrous Sulfate 324 MG TABLET.DR PO (11:50)
[2022-06-27] MEDS: amLODIPine Besylate 5 MG TABLET PO (11:50)
[2022-06-27] MEDS: Atorvastatin Calcium 40 MG TABLET PO (11:50)
[2022-06-27] MEDS: Metoprolol Succinate ER 50 MG TAB.ER.24H PO (11:51)
--- NOTE | 2022-06-27 11:51 | MHC.CM.PN ---
IMM DELIVERED CM MET WITH PT WHO LIVES ALONE IN AN APARTMENT. USES CANE. NO HCP, DECLINES TO FILL ONE OUT AT THIS TIME. COVID VAX X [address] [facility]Y[address] PCP IS [address] ROGERS. CM TO FOLLOW FOR PLAN PT IS UNSURE IF HE WILL HAVE A RIDE HOME AT [facility]
[2022-06-27 15:57] VITALS: BMI 26.9
[2022-06-27 16:00] VITALS: BP 146/77; PULSE 74; RESP 16; TEMP 36.8; O2SAT 95
[2022-06-27 16:56] LABS: Glucose, Whole Blood 132 mg/dL (60-115)
--- NOTE | 2022-06-27 18:16 | MHC.RECOVSUP ---
Recovery Support note: Patient is a 52 year old Azeri speaking male who presented to [facility] ED due to abdominal pain and n/v/d. This keno writer / runner met with patient in [id number] to discuss substance use and treatment options. Patient reports drinking 5 large beers daily with last use occurring on 06/25. Patient reports his longest period of sobriety was approximately 8 months however this was several years ago. Patient acknowledges the detrimental effect alcohol use has on his health and he reports a desire to maintain sobriety and not feel this way or live like this. Patient states it's simple, I just have to not drink. Patient reports he has been to detox and different substance use programs numerous times and that he is familiar with how to access supports. Patient reports he had a acid recovery operator through [facility] in the past. Patient finds AA meetings helpful and has previously had a sponsor. Patient has completed an IOP and is considering doing one again after discharge. Patient has been on HUMPHREY before while living on [facility] however does not recall which medication it was. Patient considering restarting HUMPHREY. Discussed [facility] with patient. Patient willing to accept information on resources discussed. Recovery Support RN will follow up with patient on 06/28 to provide resources and to address any questions patient may have regarding resources discussed. Recovery Support Team available as needed.
[2022-06-27] MEDS: Lactated Ringers 1,000 ML 125 ML IVCONT (19:32)
[2022-06-27 19:39] VITALS: BP 152/71; PULSE 66; RESP 16; TEMP 36.9; O2SAT 94
[2022-06-27 19:47] LABS: Glucose, Whole Blood 127 mg/dL (60-115)
[2022-06-27] MEDS: diphenhydrAMINE HCL 25 MG CAPSULE PO (21:03)
[2022-06-27] MEDS: Enoxaparin Sodium 40 MG/0.4 ML SYRINGE SUBCUT (21:03)
[2022-06-27 23:09] VITALS: BP 153/74; PULSE 69; RESP 17; TEMP 36.9; O2SAT 92
[2022-06-28] MEDS: Lactated Ringers 1,000 ML 125 ML IVCONT ×3 (03:08→18:19)
[2022-06-28 03:10] VITALS: BP 153/88; PULSE 63; RESP 16; TEMP 37; O2SAT 94
[2022-06-28 07:16] VITALS: BP 152/80; PULSE 67; RESP 18; TEMP 36.8; O2SAT 95
[2022-06-28 07:24] LABS: Glucose, Whole Blood 120 mg/dL (60-115)
[2022-06-28] MEDS: ondansetron HCL 4 MG/2 ML VIAL IVPUSH ×2 (09:48→18:40)
[2022-06-28] MEDS: PHENobarbitaL 15 MG TABLET 45 MG PO ×2 (09:48→20:40)
[2022-06-28] MEDS: Thiamine HCL 100 MG TABLET PO (09:49)
[2022-06-28] MEDS: HYDROmorphone HCl 1 MG/ML SYRINGE 0.5 MG IVPUSH ×3 (09:49→20:35)
[2022-06-28] MEDS: Atorvastatin Calcium 40 MG TABLET PO (09:49)
[2022-06-28] MEDS: Ferrous Sulfate 324 MG TABLET.DR PO (09:49)
[2022-06-28] MEDS: Naltrexone HCl 50 MG TABLET PO (09:49)
[2022-06-28] MEDS: Nicotine 21 MG PATCH.TD24 TRANSDERMA (09:51)
[2022-06-28] MEDS: Metoprolol Succinate ER 50 MG TAB.ER.24H PO (09:51)
[2022-06-28] MEDS: Magnesium Oxide 400 MG TABLET PO (09:52)
[2022-06-28] MEDS: Folic Acid 1 MG TABLET PO ×2 (09:52→09:56)
[2022-06-28] MEDS: Multivitamin TABLET 1 TAB PO (09:52)
[2022-06-28] MEDS: amLODIPine Besylate 5 MG TABLET PO (10:01)
--- NOTE | 2022-06-28 10:49 | MHC.RECOVRN ---
This radio script writer met w/ pt. Pt alert, sitting in bed. Pt reports nausea this a.m. T/W and pt reviewed resources for recovery, discussed continuation of Naltrexone upon discharge. Pt states was on Naltrexone before coming to hospital and would like to continue.
--- NOTE | 2022-06-28 11:07 | HO.PM.IMPN ---
Subjective Subjective Date of Service: 06/28/22 Interval History: Pt seen for follow up on acute pancreatitis and acute alcohol withdrawal Slight improvement in pain now 8/10 diffuse abdominal pain. Slept comfortably overnight not requiring pain meds. Advanced to clears, but vomited after breakfast and did not consume much. Nausea is controlled. Feels etoh w/d symptoms are improved. Still mild tremor hands. Review of Systems General: No fevers, malaise, unintentional weight loss Cardiovascular: No chest pain, palpitations, or leg edema Respiratory: No shortness of breath, wheezing, cough GI: +abdominal pain, +N/V/D. No constipation, melena, hematochezia : No dysuria, hematuria, increased urinary frequency Neuro: No headaches, weakness, paresthesias Psych: +etoh dependence. No illicit drug use Skin: No rashes or lesions Physical Exam Vital Signs: Vital Signs: Last Vital Signs Temp 98.3 F 06/28/22 07:16 Pulse 67 06/28/22 07:16 Resp 18 06/28/22 07:16 BP 152/80 H 06/28/22 07:16 Pulse Ox 95 06/28/22 07:16 O2 Del Method 06/28/22 07:16 BMI result Body Mass Index 26.9 Constitutional - Awake and Alert, No apparent distress Eyes - PERRLA, EOMI Cardiovascular - S1S2, RRR, No edema Respiratory - Normal lung expansion, Normal respiratory effort, No respiratory distress, CTA bilaterally Gastrointestinal - Nontender. ND; +BS; No rebound or guarding Extremities - no calf tenderness bilaterally, no swelling Skin - Warm/Dry Neurological - Alert & oriented x3, No focal deficit Objective Data Active Medications Amlodipine Besylate (Amlodipine Besylate 5 Mg Tablet) 5 mg PO DAILY [facility]; Protocol Last Admin: 06/28/22 10:01 Dose: 5 mg Documented By: RAMON Atorvastatin Calcium (Atorvastatin Calcium 40 Mg Tablet) 40 mg PO DAILY [facility] Last Admin: 06/28/22 09:49 Dose: 40 mg Documented By: RAMON Dextrose (Dextrose 50 % 25 Gm/50 Ml Syringe) 25 gm IVPUSH Q15M PRN; Protocol PRN Reason: per Hypoglycemia Standing Ord. Docusate Sodium (Docusate Sodium 100 Mg Capsule) 100 mg PO BID PRN PRN Reason: Constipation Last Admin: 06/27/22 07:57 Dose: 100 mg Documented By: DEMARCUS Enoxaparin Sodium (Enoxaparin Sodium 40 Mg/0.4 Ml Syringe) 40 mg SUBCUT Q24H [facility] Last Admin: 06/27/22 21:03 Dose: 40 mg Documented By: BOB Ferrous Sulfate (Ferrous Sulfate 324 Mg Tablet.Dr) 324 mg PO DAILY [facility] Last Admin: 06/28/22 09:49 Dose: 324 mg Documented By: RAMON Folic Acid (Folic Acid 1 Mg Tablet) 1 mg PO DAILY [facility] Last Admin: 06/28/22 09:52 Dose: 1 mg Documented By: RAMON Glucose (Glucose Gel 15 Gm Gel..Gram.) 15 gm PO Q15M PRN; Protocol PRN Reason: per Hypoglycemia Standing Ord. Hydromorphone HCl (Hydromorphone Hcl 1 Mg/Ml Syringe) 0.5 mg IVPUSH Q4H PRN; Protocol PRN Reason: Pain, Severe (Pain Scale 7-10) Last Admin: 06/28/22 09:49 Dose: 0.5 mg Documented By: TIA Lactated Ringer's (Lr) 1,000 mls @ 125 mls/hr IVCONT .Q8H [facility] Last Admin: 06/28/22 09:53 Dose: 125 mls/hr Documented By: RAMON Insulin Human Lispro (Insulin Lispro 100 Unit/Ml 3 Ml Vial) 0 unit SUBCUT QIDACHS [facility]; Protocol Last Admin: 06/28/22 07:30 Dose: Not Given Documented By: RAMON Non-Admin Reason: No Insulin Coverage Magnesium Oxide (Magnesium Oxide 400 Mg Tablet) 400 mg PO DAILY [facility] Last Admin: 06/28/22 09:52 Dose: 400 mg Documented By: RAMON Metoprolol Succinate (Metoprolol Succinate Er 50 Mg Tab.Er.24h) 50 mg PO DAILY [facility]; Protocol Last Admin: 06/28/22 09:51 Dose: 50 mg Documented By: RAMON Multivitamins/Vitamin C (Multivitamin Tablet) 1 tab PO DAILY [facility] Last Admin: 06/28/22 09:52 Dose: 1 tab Documented By: RAMON Naltrexone HCl (Naltrexone Hcl 50 Mg Tablet) 50 mg PO DAILY [facility] Last Admin: 06/28/22 09:49 Dose: 50 mg Documented By: RAMON Nicotine (Nicotine 21 Mg Patch.Td24) 21 mg TRANSDERMA DAILY [facility] Last Admin: 06/28/22 09:51 Dose: 21 mg Documented By: RAMON Ondansetron HCl (Ondansetron Hcl 4 Mg/2 Ml Vial) 4 mg IVPUSH Q8H PRN PRN Reason: Nausea and Vomiting Last Admin: 06/28/22 09:48 Dose: 4 mg Documented By: TIA Oxycodone HCl (Oxycodone Hcl Immed Release 5 Mg Tablet) 5 mg PO Q6H PRN PRN Reason: Pain, Moderate (Pain Scale 4-6 Last Admin: 06/27/22 19:25 Dose: 5 mg Documented By: BOB Pharmacy Consult (Consult Rx Etoh Phenob Im/Po) 1 each MISCELLANE ONCE PRN; Protocol PRN Reason: Consult order Phenobarbital (Phenobarbital 15 Mg Tablet) 45 mg PO BID [facility] Stop: 06/28/22 21:01 Last Admin: 06/28/22 09:48 Dose: 45 mg Documented By: RAMON Phenobarbital (Phenobarbital 15 Mg Tablet) 15 mg PO BID [facility] Stop: 06/30/22 21:01 Phenobarbital (Phenobarbital 15 Mg Tablet) 15 mg PO DAILY [facility] Stop: 07/02/22 09:01 Sodium Chloride (0.9 % Sodium Chloride Flush 3 Ml Syringe) 3 ml IVFLUSH QSHIFT [facility] Last Admin: 06/28/22 09:53 Dose: Not Given Documented By: TIA Non-Admin Reason: IV Running Thiamine HCl (Thiamine Hcl 100 Mg Tablet) 100 mg PO DAILY [facility] Last Admin: 06/28/22 09:49 Dose: 100 mg Documented By: RAMON Labs CBC & Chem 7: 06/26/22 11:16 06/26/22 11:16 Labs: Laboratory Results - last 24 hr 06/27/22 06/27/22 06/27/22 11:08 16:35 19:43 POC Glucose 133 H 132 H 127 H 06/28/22 07:20 POC Glucose 120 H Assessment and Plan (1) Alcohol withdrawal: Status: Acute (2) Acute on chronic pancreatitis: Status: Acute (3) Alcohol dependence: Status: Acute Plan 52-year-old male with history of hypertension, controlled jgj-hibpuyf-pqmufphhc type 2 diabetes with last A1c of 6.1%, 2ppd cigarette smoker, history of pancreatitis, hx brain surgery (subdural hematoma evac?), and alcohol dependence admitted for abdominal pain with acute on chronic pancreatitis and acute alcohol withdrawal. 1- Acute on chronic pancreatitis r/t alcohol abuse -Lipase trending down -Abd ct/pelvis shows acute pancreatitis with reactive dilitation colon -Continue aggressive IVF with LR -Pt did not tolerate clears at breakfast, would like to try again. Continue clear liquids -Pain management on pain scale with dilaudid and oxycodone -Ondansetron prn nausea 2-Acute alcohol withdrawal -W/d symptoms improving. No seizures. CIWA 2 -Continue phenobarb per protocol -Continue home naltrexone -Pt met with recovery team. Resources provided and will continue naltrexone on discharge. 3-HTN -Continue home meds 4-Type 2 diabetes- noninsulin dependent- glucose levels controlled -Last A1c 6.1% per pt -POC glucose -NPO for now -Humalog SSI -Hold metformin 5-Nicotine dependence -NRT ordered DVT proph- lovenox Full code Pt requires continued inpatient stay for management acute pancreatitis requiring IV fluids and for management of acute etoh withdrawal on phenobarb protocol at risk for seizures. Quality Stroke Does the patient have a stroke diagnosis?: No VTE Prior VTE?: No VTE Risk Level:: Medical - moderate - high VTE Device Contraindication: Treatment Not Indicated VTE Drug Contraindication: N/A - Med Ordered
[2022-06-28 11:11] VITALS: BP 140/79; PULSE 68; RESP 18; TEMP 36.8; O2SAT 95
[2022-06-28 12:29] VITALS: BP 133/79; PULSE 70; RESP 18; TEMP 37.2; O2SAT 96
[2022-06-28 15:43] VITALS: BP 149/76; PULSE 75; RESP 17; TEMP 36.7; O2SAT 94
[2022-06-28] MEDS: oxyCODONE HCl Immed Release 5 MG TABLET PO (19:25)
[2022-06-28 19:50] VITALS: BP 150/79; PULSE 72; RESP 17; TEMP 37; O2SAT 92
[2022-06-28] MEDS: diphenhydrAMINE HCL 25 MG TABLET PO (22:02)
[2022-06-29] VITALS (7 sets, daily range): BP systolic 128–157; BP diastolic 73–83; PULSE 68–87; RESP 15–19; TEMP 36.2–37.4; O2SAT 91–95
[2022-06-29] MEDS: Magnesium Oxide 400 MG TABLET PO (07:58)
[2022-06-29] MEDS: PHENobarbitaL 15 MG TABLET PO ×2 (07:58→20:47)
[2022-06-29] MEDS: Thiamine HCL 100 MG TABLET PO (07:58)
[2022-06-29] MEDS: Folic Acid 1 MG TABLET PO (07:58)
[2022-06-29] MEDS: Multivitamin TABLET 1 TAB PO (07:58)
[2022-06-29] MEDS: Naltrexone HCl 50 MG TABLET PO (07:58)
[2022-06-29] MEDS: Metoprolol Succinate ER 50 MG TAB.ER.24H PO (07:58)
[2022-06-29] MEDS: Atorvastatin Calcium 40 MG TABLET PO (07:58)
[2022-06-29] MEDS: amLODIPine Besylate 5 MG TABLET PO (07:59)
[2022-06-29] MEDS: 0.9 % Sodium Chloride Flush 3 ML SYRINGE IVFLUSH (07:59)
[2022-06-29] MEDS: Ferrous Sulfate 324 MG TABLET.DR PO (07:59)
[2022-06-29] MEDS: Nicotine 21 MG PATCH.TD24 TRANSDERMA (07:59)
[2022-06-29] MEDS: HYDROmorphone HCl 1 MG/ML SYRINGE 0.5 MG IVPUSH ×4 (08:15→22:30)
[2022-06-29] MEDS: guaiFENesin LA 600 MG TAB.ER.12H PO ×3 (11:35→20:48)
[2022-06-29] MEDS: Lactated Ringers 1,000 ML 150 ML IVCONT ×2 (11:36→18:49)
[2022-06-29] MEDS: Albuterol/Iprat 2.5/0.5MG 3 ML AMPUL.NEB INHALE ×2 (12:30→17:12)
--- NOTE | 2022-06-29 13:09 | HO.PM.IMPN ---
Subjective Subjective Date of Service: 06/29/22 Interval History: the patient was seen and evaluated this morning Laying in bed, still complaining of abdominal pain, nausea and poor tolerance of p.o. Denies any fever, chills or shortness of breath No reported other overnight events. Systemic review: No fever, chills or weakness No chest pain, palpitation No shortness of breath or coughing Reporting abdominal pain, associated with nausea No urinary symptoms No any rash or wounds Physical Exam Vital Signs: Vital Signs: Last Vital Signs Temp 98.9 F 06/29/22 11:30 Pulse 69 06/29/22 11:30 Resp 18 06/29/22 11:30 BP 142/78 H 06/29/22 11:30 Pulse Ox 95 06/29/22 11:30 O2 Del Method 06/29/22 11:30 BMI result Body Mass Index 26.9 Const: Other: Constitutional : Alert, oriented, not in distress Neck : Normal inspection, Supple Cardiovascular : RRR, no JVP, no lower extremity edema Respiratory : fair bilateral air entry, no crackles, bilateral scattered wheezes Gastrointestinal: soft, lax, decreased bowel sounds, generalized mild tenderness mainly in the epigastric area Skin : Warm, Dry Neurological : Alert & oriented x3, No focal deficit Objective Data Active Medications Albuterol/Ipratropium (Albuterol/Iprat 2.5/0.5mg 3 Ml Ampul.Neb) 3 ml INHALE RQ4H WHILE AWAKE [facility] Last Admin: 06/29/22 12:30 Dose: 3 ml Documented By: CARRINGTON Amlodipine Besylate (Amlodipine Besylate 5 Mg Tablet) 5 mg PO DAILY [facility]; Protocol Last Admin: 06/29/22 07:59 Dose: 5 mg Documented By: TIA Atorvastatin Calcium (Atorvastatin Calcium 40 Mg Tablet) 40 mg PO DAILY [facility] Last Admin: 06/29/22 07:58 Dose: 40 mg Documented By: TIA Dextrose (Dextrose 50 % 25 Gm/50 Ml Syringe) 25 gm IVPUSH Q15M PRN; Protocol PRN Reason: per Hypoglycemia Standing Ord. Docusate Sodium (Docusate Sodium 100 Mg Capsule) 100 mg PO BID PRN PRN Reason: Constipation Last Admin: 06/27/22 07:57 Dose: 100 mg Documented By: DEMARCUS Enoxaparin Sodium (Enoxaparin Sodium 40 Mg/0.4 Ml Syringe) 40 mg SUBCUT Q24H [facility] Last Admin: 06/28/22 20:50 Dose: Not Given Documented By: BOB Non-Admin Reason: Patient Refused Ferrous Sulfate (Ferrous Sulfate 324 Mg Tablet.Dr) 324 mg PO DAILY [facility] Last Admin: 06/29/22 07:59 Dose: 324 mg Documented By: TIA Folic Acid (Folic Acid 1 Mg Tablet) 1 mg PO DAILY [facility] Last Admin: 06/29/22 07:58 Dose: 1 mg Documented By: TIA Glucose (Glucose Gel 15 Gm Gel..Gram.) 15 gm PO Q15M PRN; Protocol PRN Reason: per Hypoglycemia Standing Ord. Guaifenesin (Guaifenesin La 600 Mg Tab.Er.12h) 600 mg PO BID [facility] Last Admin: 06/29/22 11:35 Dose: 600 mg Documented By: TIA Hydromorphone HCl (Hydromorphone Hcl 1 Mg/Ml Syringe) 0.5 mg IVPUSH Q4H PRN; Protocol PRN Reason: Pain, Severe (Pain Scale 7-10) Last Admin: 06/29/22 08:15 Dose: 0.5 mg Documented By: TIA Lactated Ringer's (Lr) 1,000 mls @ 150 mls/hr IVCONT .Q6H40M [facility] Last Admin: 06/29/22 11:36 Dose: 150 mls/hr Documented By: TIA Insulin Human Lispro (Insulin Lispro 100 Unit/Ml 3 Ml Vial) 0 unit SUBCUT QIDACHS [facility]; Protocol Last Admin: 06/29/22 11:43 Dose: Not Given Documented By: TIA Non-Admin Reason: No Insulin Coverage Magnesium Oxide (Magnesium Oxide 400 Mg Tablet) 400 mg PO DAILY [facility] Last Admin: 06/29/22 07:58 Dose: 400 mg Documented By: TIA Metoprolol Succinate (Metoprolol Succinate Er 50 Mg Tab.Er.24h) 50 mg PO DAILY [facility]; Protocol Last Admin: 06/29/22 07:58 Dose: 50 mg Documented By: TIA Multivitamins/Vitamin C (Multivitamin Tablet) 1 tab PO DAILY [facility] Last Admin: 06/29/22 07:58 Dose: 1 tab Documented By: TIA Naltrexone HCl (Naltrexone Hcl 50 Mg Tablet) 50 mg PO DAILY [facility] Last Admin: 06/29/22 07:58 Dose: 50 mg Documented By: TIA Nicotine (Nicotine 21 Mg Patch.Td24) 21 mg TRANSDERMA DAILY [facility] Last Admin: 06/29/22 07:59 Dose: 21 mg Documented By: TIA Ondansetron HCl (Ondansetron Hcl 4 Mg/2 Ml Vial) 4 mg IVPUSH Q8H PRN PRN Reason: Nausea and Vomiting Last Admin: 06/28/22 18:40 Dose: 4 mg Documented By: TIA Oxycodone HCl (Oxycodone Hcl Immed Release 5 Mg Tablet) 5 mg PO Q6H PRN PRN Reason: Pain, Moderate (Pain Scale 4-6 Last Admin: 06/28/22 19:25 Dose: 5 mg Documented By: BOB Pharmacy Consult (Consult Rx Etoh Phenob Im/Po) 1 each MISCELLANE ONCE PRN; Protocol PRN Reason: Consult order Phenobarbital (Phenobarbital 15 Mg Tablet) 15 mg PO BID [facility] Stop: 06/30/22 21:01 Last Admin: 06/29/22 07:58 Dose: 15 mg Documented By: TIA Phenobarbital (Phenobarbital 15 Mg Tablet) 15 mg PO DAILY [facility] Stop: 07/02/22 09:01 Sodium Chloride (0.9 % Sodium Chloride Flush 3 Ml Syringe) 3 ml IVFLUSH QSHIFT [facility] Last Admin: 06/29/22 07:59 Dose: 3 ml Documented By: TIA Thiamine HCl (Thiamine Hcl 100 Mg Tablet) 100 mg PO DAILY [facility] Last Admin: 06/29/22 07:58 Dose: 100 mg Documented By: TIA Labs CBC & Chem 7: 06/26/22 11:16 06/26/22 11:16 Labs: Laboratory Results - last 24 hr 06/28/22 06/28/22 06/29/22 15:07 19:51 07:29 POC Glucose 103 128 H 109 06/29/22 11:32 POC Glucose 114 Assessment and Plan (1) Alcohol withdrawal: Status: Acute (2) Acute on chronic pancreatitis: Status: Acute Plan 52-year-old male with history of hypertension, controlled sup-qbrafxr-ppnputclc type 2 diabetes with last A1c of 6.1%, 2ppd cigarette smoker, history of pancreatitis, hx brain surgery (subdural hematoma evac?), and alcohol dependence admitted for abdominal pain with acute on chronic pancreatitis and acute alcohol withdrawal. 1- Acute on chronic pancreatitis r/t alcohol abuse Improving slowly Abd ct/pelvis shows acute pancreatitis with reactive dilitation colon Continue aggressive IVF with LR Advanced diet as tolerated p.r.n. dilaudid and oxycodone -Ondansetron prn nausea 2-Acute alcohol withdrawal Symptoms resolving, CIWA 2 Continue phenobarb per protocol Continue home naltrexone Pt met with recovery team. Resources provided and will continue naltrexone on discharge. 3-HTN Continue home meds 4-Type 2 diabetes- noninsulin dependent controlled Humalog SSI Hold metformin 5-Nicotine dependence Advised quitting, NRT ordered 6- dyspnea Likely reactive airway disease with increased wheezing Bronchodilator nebulizers CXR done showing no acute process Incentive spirometry DVT proph lovenox Pt requires continued inpatient stay for management acute pancreatitis requiring IV fluids and for management of acute etoh withdrawal on phenobarb protocol at risk for seizures. Quality Stroke Does the patient have a stroke diagnosis?: No VTE Prior VTE?: No VTE Risk Level:: Medical - moderate - high VTE Device Contraindication: Treatment Not Indicated VTE Drug Contraindication: N/A - Med Ordered
[2022-06-29] MEDS: oxyCODONE HCl Immed Release 5 MG TABLET PO (16:54)
--- NOTE | 2022-06-29 16:55 | PC.NURSE ---
patient refuses bed and chair alarm,educated on risk of falling,encouraged patient to ask for assistance
--- NOTE | 2022-06-29 20:56 | PC.NURSE ---
Patient refused lovenox,risks explained to patient,encouraged activity,Dr. Hammonds made aware
[2022-06-29] MEDS: traZODone HCL 50 MG TABLET PO (22:30)
[2022-06-30] MEDS: Lactated Ringers 1,000 ML 150 ML IVCONT ×3 (01:02→14:09)
[2022-06-30 03:51] VITALS: BP 146/83; PULSE 69; RESP 18; TEMP 37; O2SAT 92
[2022-06-30 06:24] LABS: Anion Gap 20 (12-20); Blood Urea Nitrogen 7 mg/dL (9-16); Calcium 7.9 mg/dL (8.4-10.2); Carbon Dioxide 25 mmol/L (22-29); Chloride 96 mmol/L (96-108); Creatinine Clr Calc Pharmacy 126.7; Estimated Glomerular Filt Rate > 60; Glucose Random 113 mg/dL (60-115); Potassium 2.7 mmol/L (3.3-5.1); Sodium 138 mmol/L (135-145)
[2022-06-30 06:56] VITALS: BP 152/79; PULSE 75; RESP 18; TEMP 36.6; O2SAT 95
[2022-06-30 07:05] LABS: Glucose, Whole Blood 128 mg/dL (60-115)
[2022-06-30] MEDS: HYDROmorphone HCl 1 MG/ML SYRINGE 0.5 MG IVPUSH ×3 (07:39→21:38)
[2022-06-30] MEDS: Nicotine 21 MG PATCH.TD24 TRANSDERMA (07:42)
[2022-06-30] MEDS: amLODIPine Besylate 5 MG TABLET PO (07:43)
[2022-06-30] MEDS: Atorvastatin Calcium 40 MG TABLET PO (07:43)
[2022-06-30] MEDS: PHENobarbitaL 15 MG TABLET PO ×2 (07:43→20:11)
[2022-06-30] MEDS: Metoprolol Succinate ER 50 MG TAB.ER.24H PO (07:43)
[2022-06-30] MEDS: Magnesium Oxide 400 MG TABLET PO (07:43)
[2022-06-30] MEDS: Naltrexone HCl 50 MG TABLET PO (07:43)
[2022-06-30] MEDS: Thiamine HCL 100 MG TABLET PO (07:43)
[2022-06-30] MEDS: Multivitamin TABLET 1 TAB PO (07:43)
[2022-06-30] MEDS: Ferrous Sulfate 324 MG TABLET.DR PO (07:43)
[2022-06-30] MEDS: guaiFENesin LA 600 MG TAB.ER.12H PO ×2 (07:43→20:11)
[2022-06-30] MEDS: Albuterol/Iprat 2.5/0.5MG 3 ML AMPUL.NEB INHALE (07:55)
[2022-06-30 07:56] VITALS: PULSE 84; RESP 18; O2SAT 95
[2022-06-30] MEDS: Potassium Chloride Packet 20 MEQ PACKET 40 MEQ PO ×3 (09:38→17:18)
[2022-06-30 11:06] VITALS: BP 134/71; PULSE 78; RESP 18; TEMP 36.1; O2SAT 92
[2022-06-30 11:27] LABS: Glucose, Whole Blood 234 mg/dL (60-115)
[2022-06-30] MEDS: Insulin Lispro 100 UNIT/ML 3 ML VIAL SUBCUT ×2 (11:43→20:12)
[2022-06-30] MEDS: oxyCODONE HCl Immed Release 5 MG TABLET PO ×2 (11:50→20:11)
--- NOTE | 2022-06-30 12:30 | HO.PM.IMPN ---
Subjective Subjective Date of Service: 06/30/22 Interval History: the patient was seen and evaluated this morning Laying in bed, feels mild improvement but still complaining of abdominal pain, nausea and poor tolerance of p.o. Denies any fever, chills or shortness of breath No reported other overnight events. Systemic review: No fever, chills or weakness No chest pain, palpitation No shortness of breath or coughing Reporting abdominal pain, associated with nausea No urinary symptoms No any rash or wounds Physical Exam Vital Signs: Vital Signs: Last Vital Signs Temp 97 F 06/30/22 11:06 Pulse 78 06/30/22 11:06 Resp 18 06/30/22 11:06 BP 134/71 06/30/22 11:06 Pulse Ox 92 06/30/22 11:06 O2 Del Method 06/30/22 11:06 BMI result Body Mass Index 26.9 Const: Other: Constitutional : Alert, oriented, not in distress Neck : Normal inspection, Supple Cardiovascular : RRR, no JVP, no lower extremity edema Respiratory : fair bilateral air entry, no crackles, bilateral scattered wheezes Gastrointestinal: soft, lax, decreased bowel sounds, generalized mild tenderness mainly in the epigastric area Skin : Warm, Dry Neurological : Alert & oriented x3, No focal deficit Objective Data Active Medications Albuterol/Ipratropium (Albuterol/Iprat 2.5/0.5mg 3 Ml Ampul.Neb) 3 ml INHALE RQ4H WHILE AWAKE [facility] Last Admin: 06/30/22 11:29 Dose: Not Given Documented By: GABRIEL Non-Admin Reason: Patient Refused Amlodipine Besylate (Amlodipine Besylate 5 Mg Tablet) 5 mg PO DAILY [facility]; Protocol Last Admin: 06/30/22 07:43 Dose: 5 mg Documented By: TIA Atorvastatin Calcium (Atorvastatin Calcium 40 Mg Tablet) 40 mg PO DAILY [facility] Last Admin: 06/30/22 07:43 Dose: 40 mg Documented By: TIA Dextrose (Dextrose 50 % 25 Gm/50 Ml Syringe) 25 gm IVPUSH Q15M PRN; Protocol PRN Reason: per Hypoglycemia Standing Ord. Docusate Sodium (Docusate Sodium 100 Mg Capsule) 100 mg PO BID PRN PRN Reason: Constipation Last Admin: 06/27/22 07:57 Dose: 100 mg Documented By: DEMARCUS Enoxaparin Sodium (Enoxaparin Sodium 40 Mg/0.4 Ml Syringe) 40 mg SUBCUT Q24H [facility] Last Admin: 06/29/22 20:48 Dose: Not Given Documented By: LUIZ Non-Admin Reason: Patient Refused Ferrous Sulfate (Ferrous Sulfate 324 Mg Tablet.) 324 mg PO DAILY [facility] Last Admin: 06/30/22 07:43 Dose: 324 mg Documented By: TIA Folic Acid (Folic Acid 1 Mg Tablet) 1 mg PO DAILY [facility] Last Admin: 06/29/22 07:58 Dose: 1 mg Documented By: TIA Glucose (Glucose Gel 15 Gm Gel..Gram.) 15 gm PO Q15M PRN; Protocol PRN Reason: per Hypoglycemia Standing Ord. Guaifenesin (Guaifenesin La 600 Mg Tab.Er.12h) 600 mg PO BID [facility] Last Admin: 06/30/22 07:43 Dose: 600 mg Documented By: TIA Hydromorphone HCl (Hydromorphone Hcl 1 Mg/Ml Syringe) 0.5 mg IVPUSH Q4H PRN; Protocol PRN Reason: Pain, Severe (Pain Scale 7-10) Last Admin: 06/30/22 07:39 Dose: 0.5 mg Documented By: TIA Lactated Ringer's (Lr) 1,000 mls @ 150 mls/hr IVCONT .Q6H40M [facility] Last Admin: 06/30/22 07:42 Dose: 150 mls/hr Documented By: TIA Insulin Human Lispro (Insulin Lispro 100 Unit/Ml 3 Ml Vial) 0 unit SUBCUT QIDACHS [facility]; Protocol Last Admin: 06/30/22 11:43 Dose: 4 unit Documented By: TIA Magnesium Oxide (Magnesium Oxide 400 Mg Tablet) 400 mg PO DAILY [facility] Last Admin: 06/30/22 07:43 Dose: 400 mg Documented By: TIA Metoprolol Succinate (Metoprolol Succinate Er 50 Mg Tab.Er.24h) 50 mg PO DAILY [facility]; Protocol Last Admin: 06/30/22 07:43 Dose: 50 mg Documented By: TIA Multivitamins/Vitamin C (Multivitamin Tablet) 1 tab PO DAILY [facility] Last Admin: 06/30/22 07:43 Dose: 1 tab Documented By: TIA Naltrexone HCl (Naltrexone Hcl 50 Mg Tablet) 50 mg PO DAILY [facility] Last Admin: 06/30/22 07:43 Dose: 50 mg Documented By: TIA Nicotine (Nicotine 21 Mg Patch.Td24) 21 mg TRANSDERMA DAILY [facility] Last Admin: 06/30/22 07:42 Dose: 21 mg Documented By: TIA Ondansetron HCl (Ondansetron Hcl 4 Mg/2 Ml Vial) 4 mg IVPUSH Q8H PRN PRN Reason: Nausea and Vomiting Last Admin: 06/28/22 18:40 Dose: 4 mg Documented By: TIA Oxycodone HCl (Oxycodone Hcl Immed Release 5 Mg Tablet) 5 mg PO Q6H PRN PRN Reason: Pain, Moderate (Pain Scale 4-6 Last Admin: 06/30/22 11:50 Dose: 5 mg Documented By: TIA Pharmacy Consult (Consult Rx Etoh Phenob Im/Po) 1 each MISCELLANE ONCE PRN; Protocol PRN Reason: Consult order Phenobarbital (Phenobarbital 15 Mg Tablet) 15 mg PO BID [facility] Stop: 06/30/22 21:01 Last Admin: 06/30/22 07:43 Dose: 15 mg Documented By: TIA Phenobarbital (Phenobarbital 15 Mg Tablet) 15 mg PO DAILY [facility] Stop: 07/02/22 09:01 Sodium Chloride (0.9 % Sodium Chloride Flush 3 Ml Syringe) 3 ml IVFLUSH QSHIFT [facility] Last Admin: 06/30/22 07:44 Dose: Not Given Documented By: TIA Non-Admin Reason: IV Running Thiamine HCl (Thiamine Hcl 100 Mg Tablet) 100 mg PO DAILY [facility] Last Admin: 06/30/22 07:43 Dose: 100 mg Documented By: TIA Labs CBC & Chem 7: 06/26/22 11:16 06/30/22 05:20 Labs: Laboratory Results - last 24 hr 06/29/22 06/29/22 06/30/22 15:03 19:18 05:20 Anion Gap 20 Estim Creat Clear Calc 126.7 Estimated GFR > 60 POC Glucose 115 133 H Random Glucose 113 D Calcium 7.9 L D 06/30/22 06/30/22 06:57 11:05 Anion Gap Estim Creat Clear Calc Estimated GFR POC Glucose 128 H 234 H Random Glucose Calcium Assessment and Plan (1) Alcohol withdrawal: Status: Acute (2) Acute on chronic pancreatitis: Status: Acute (3) Alcohol dependence: Status: Acute Plan 52-year-old male with history of hypertension, controlled bff-evonpsb-fuwiizfav type 2 diabetes with last A1c of 6.1%, 2ppd cigarette smoker, history of pancreatitis, hx brain surgery (subdural hematoma evac?), and alcohol dependence admitted for abdominal pain with acute on chronic pancreatitis and acute alcohol withdrawal. 1- Acute on chronic pancreatitis r/t alcohol abuse Improving slowly Abd ct/pelvis shows acute pancreatitis with reactive dilitation colon Continue aggressive IVF with LR Advanced diet as tolerated p.r.n. dilaudid and oxycodone Ondansetron prn nausea 2-Acute alcohol withdrawal Resolved on phenobarb per protocol Continue home naltrexone Pt met with recovery team. Resources provided and will continue naltrexone on discharge. 3-hypokalemia Replacement given Follow BMP 4-Type 2 diabetes- noninsulin dependent controlled Humalog SSI Hold metformin 5-Nicotine dependence Advised quitting, NRT ordered 6- dyspnea Likely reactive airway disease with increased wheezing Bronchodilator nebulizers CXR done showing no acute process Incentive spirometry DVT proph lovenox Pt requires continued inpatient stay for management acute pancreatitis requiring IV fluids and for management of acute etoh withdrawal on phenobarb protocol at risk for seizures. Quality Stroke Does the patient have a stroke diagnosis?: No VTE Prior VTE?: No VTE Risk Level:: Medical - moderate - high VTE Device Contraindication: Treatment Not Indicated VTE Drug Contraindication: N/A - Med Ordered
[2022-06-30 16:09] VITALS: BP 168/84; PULSE 75; RESP 18; TEMP 36.9; O2SAT 96
[2022-06-30 16:32] LABS: Glucose, Whole Blood 132 mg/dL (60-115)
[2022-06-30 19:14] VITALS: BP 166/77; PULSE 66; RESP 17; TEMP 36.9; O2SAT 97
[2022-06-30 19:53] LABS: Glucose, Whole Blood 161 mg/dL (60-115)
[2022-06-30] MEDS: Enoxaparin Sodium 40 MG/0.4 ML SYRINGE SUBCUT (20:11)
[2022-07-01] VITALS: BP 138/64; PULSE 67; RESP 18; TEMP 37.2; O2SAT 95
[2022-07-01 03:51] VITALS: BP 137/73; PULSE 70; RESP 18; TEMP 36.6; O2SAT 95
[2022-07-01] MEDS: HYDROmorphone HCl 1 MG/ML SYRINGE 0.5 MG IVPUSH (06:23)
[2022-07-01 07:15] LABS: Anion Gap 17 (12-20); Blood Urea Nitrogen 5 mg/dL (9-16); Calcium 8.1 mg/dL (8.4-10.2); Carbon Dioxide 27 mmol/L (22-29); Chloride 98 mmol/L (96-108); Creatinine Clr Calc Pharmacy 122.8; Estimated Glomerular Filt Rate > 60; Glucose Random 141 mg/dL (60-115); Potassium 3.3 mmol/L (3.3-5.1); Sodium 139 mmol/L (135-145)
[2022-07-01 07:58] LABS: Glucose, Whole Blood 157 mg/dL (60-115)
[2022-07-01 08:00] VITALS: BP 168/85; PULSE 68; RESP 18; TEMP 36.7; O2SAT 96
[2022-07-01] MEDS: PHENobarbitaL 15 MG TABLET PO (08:14)
[2022-07-01] MEDS: Multivitamin TABLET 1 TAB PO (08:14)
[2022-07-01] MEDS: Ferrous Sulfate 324 MG TABLET.DR PO (08:14)
[2022-07-01] MEDS: Magnesium Oxide 400 MG TABLET PO (08:14)
[2022-07-01] MEDS: Atorvastatin Calcium 40 MG TABLET PO (08:15)
[2022-07-01] MEDS: Thiamine HCL 100 MG TABLET PO (08:15)
[2022-07-01] MEDS: Naltrexone HCl 50 MG TABLET PO (08:15)
[2022-07-01] MEDS: guaiFENesin LA 600 MG TAB.ER.12H PO (08:15)
[2022-07-01] MEDS: amLODIPine Besylate 5 MG TABLET PO (08:15)
[2022-07-01] MEDS: Metoprolol Succinate ER 50 MG TAB.ER.24H PO (08:15)
[2022-07-01] MEDS: Folic Acid 1 MG TABLET PO (08:15)
[2022-07-01] MEDS: Nicotine 21 MG PATCH.TD24 TRANSDERMA (08:16)
[2022-07-01] MEDS: Insulin Lispro 100 UNIT/ML 3 ML VIAL SUBCUT (08:16)
--- NOTE | 2022-07-01 10:10 | PM.DS ---
DS: Providers Provider Date of Service: 07/01/22 Date of admission: 06/26/22 20:18 Primary care physician: Unknown Physician Consults: 06/26/22 20:19 Addiction Medicine Routine Consulting Provider: Luba Miles Reason for consultation: etoh dependence DS: Diagnosis Discharge Diagnosis (1) Alcohol withdrawal: Status: Acute (2) Acute on chronic pancreatitis: Status: Acute (3) Alcohol dependence: Status: Acute DS: Summary Hospital Course Hospital Course: Admission note HPI 52-year-old male with history of hypertension, controlled kgd-[id number] type 2 diabetes with last A1c of 6.1%, 2ppd cigarette smoker, history of pancreatitis, and alcohol dependence presented to the ED earlier today for evaluation of diffuse 9/10 abdominal pain radiating to the back bilaterally ongoing for 1 day as well as alcohol withdrawal.? He states he consumes 5 24 oz beers daily, last drink was yesterday.? He has been experiencing nausea and recurrent episodes of vomiting.? States he has had 5 episodes of non bloody emesis today.? He has also been experiencing tremors, anxiety and agitation, sweats, occasional palpitations as well as diarrhea.? States he has had decreased oral intake over the last 2 weeks.? He states he has been hospitalized at various other facilities for acute pancreatitis but continues consuming alcohol.? He states he has never had a withdrawal seizure. Abd/Ct pending. Lipase >2100. Hematology studies normal. Renal function and lytes stable. Glucose 303. Hepatic function normal. VSS. To be admitted for acute alcohol withdrawal and acute pancreatitis. Hospital course The patient was admitted for treatment of acute pancreatitis related to alcohol abuse associated with alcohol withdrawal symptoms. Treated with IV fluid and pain medication as abdominal CT showed acute pancreatitis with reactive, non dilatation. Diet was advanced during the hospital stay at the patient use Zofran for nausea and received pain medication. Treated with phenobarbital protocol for alcohol withdrawal as CIWA trended down to 0. Evaluated by Addiction team who provided resources with plan to continue naltrexone at discharge. Advanced strongly complete abstinence from alcohol. Hypokalemia treated and replaced. Developed reactive airway disease with wheezes. Treated with bronchopneumonia lies hours with good response as chest x-ray did not show any acute findings. Started on nicotine supplement. We advise you complete abstinence from alcohol Continue naltrexone as prescribed Advance your diet slowly at home Use Zofran as needed for nausea Time Spent with Patient Time attestation: Total time spent providing and/or coordinating discharge services: Discharge coordination time: Greater than 30 minutes Quality: Safe Use of Opioids Does Pt have an Active Cancer Diagnosis on the Problem List?: No Quality: Stroke Does the patient have a stroke diagnosis?: No Physical Exam Vital Signs: Vital Signs: Last Vital Signs Temp 98.1 F 07/01/22 08:00 Pulse 68 07/01/22 08:00 Resp 18 07/01/22 08:00 BP 168/85 H 07/01/22 08:00 Pulse Ox 96 07/01/22 08:00 O2 Del Method 07/01/22 08:00 BMI result Body Mass Index 26.9 Const: Other: Constitutional : Alert, oriented, not in distress Neck : Normal inspection, Supple Cardiovascular : RRR, no JVP, no lower extremity edema Respiratory : fair bilateral air entry, no crackles, wheezes or rhonchi Gastrointestinal: soft, lax, Normal bowel sounds, Non tender Skin : Warm, Dry Neurological : Alert & oriented x3, No focal deficit DS: Data Data Completed and Pending Labs on day of discharge: Laboratory Results - last 24 hr 06/30/22 06/30/22 06/30/22 11:05 16:12 19:18 Sodium Potassium Chloride Carbon Dioxide Anion Gap BUN Creatinine Estim Creat Clear Calc Estimated GFR POC Glucose 234 H 132 H 161 H Random Glucose Calcium 07/01/22 07/01/22 05:57 07:40 Sodium 139 Potassium 3.3 D Chloride 98 Carbon Dioxide 27 Anion Gap 17 BUN 5 L Creatinine 0.65 Estim Creat Clear Calc 122.8 Estimated GFR > 60 POC Glucose 157 H Random Glucose 141 H Calcium 8.[address] scan - abdomen: Radiologist's impression: ITS Impressions Abdomen/Pelvis CT 06/26/22 20:30 IMPRESSION: Mild acute pancreatitis. Fleischner guidelines were followed. Chest X-Ray 06/29/22 10:50 IMPRESSION: No acute pulmonary process. Discharge Plan Discharge Anticipated Discharge Date/Time: 07/01/22 10:04 Patient Disposition: Home, Self-Care Discharge Diagnosis: Acute pancreatitis Alcohol withdrawal Referrals: Physician,Unknown J [Primary Care Provider] - 1 Week Discharge Medications: New nicotine 21 mg/24 hr Patch 24 Hour 21 mg transdermal DAILY Qty: 28 2RF ondansetron 4 mg tablet,disintegrating 4 mg PO Q8H PRN (Reason: nausea and vomiting) Qty: 14 0RF Continued atorvastatin 40 mg tablet 1 tab PO DAILY metoprolol succinate 50 mg tablet extended release 24 hr 1 tab PO DAILY naltrexone 50 mg tablet 1 tab PO DAILY thiamine HCl (vitamin B1) [Vitamin B-1] 100 mg tablet 1 tab PO DAILY magnesium oxide 400 mg (241.3 mg magnesium) tablet 1 tab PO DAILY ferrous sulfate [FeroSul] 325 mg (65 mg iron) tablet 1 tab PO DAILY folic acid 1 mg tablet 1 tab PO DAILY multivitamin [One Daily Multivitamin] Tablet 1 tab PO DAILY albuterol sulfate [Ventolin HFA] 90 mcg/actuation HFA aerosol inhaler 2 puff inhalation BID PRN (Reason: Shortness Of Breath) amlodipine 5 mg tablet 1 tab PO DAILY metformin 1,000 mg tablet 1 tab PO DAILY Discharge Orders: Discharge Order (Routine); Ordered 07/01/22 Ordered By: Brenda Brenner Diet: Advance to usual diet Activity on Discharge: As tolerated Stand Alone Forms: Patient Portal Discharge page Care Plan Goals: Read below Health Concerns: Read below Plan of Treatment: Read below Assessment: You were admitted to the hospital for evaluation of abdominal pain. Found to have acute pancreatitis with associated alcohol withdrawal. Improved significantly over the course of hospital stay with usage of IV fluids and pain medications. Evaluated by Addiction team for alcohol dependence treated with phenobarbital protocol. We advise you complete abstinence from alcohol Continue naltrexone as prescribed Advance your diet slowly at home Use Zofran as needed for nausea
--- NOTE | 2022-07-01 10:14 | MHC.CM.PN ---
Addendum entered by Brigette Mirza RN 07/01/22 10:20: GIRLFRIEND IN ROOM TO TRANSPORT HOME. IMM 06/30 IN CHART Original Note: PATIENT IS DC HOME - SELF CARE RN AWARE OF PLAN.
== END 2022-07-01 10:45 | disposition home or self-care (01) | DRG 439 ==
LOC: HO.ED 19:26 → HO.EDOVER 20:26 → HO.S3 06-27 06:58
PROVIDERS: Internal Medicine; Admitting Provider Physician Assistant; Emergency Provider Student in an Organized Health Care Education/Training Program; PCP Internal Medicine; Visit Provider Student in an Organized Health Care Education/Training Program
DX: K85.20 Alcohol induced acute pancreatitis without necrosis or infection (principal); F10.239 Alcohol dependence with withdrawal, unspecified; K86.0 Alcohol-induced chronic pancreatitis; I10 Essential (primary) hypertension; E11.9 Type 2 diabetes mellitus without complications; F17.290 Nicotine dependence, other tobacco product, uncomplicated; E87.6 Hypokalemia; Z20.822 Contact with and (suspected) exposure to COVID-19; Z71.6 Tobacco abuse counseling; Z88.5 Allergy status to narcotic agent; Z88.6 Allergy status to analgesic agent; Z88.8 Allergy status to other drugs, medicaments and biological substances; Z79.84 Long term (current) use of oral hypoglycemic drugs; Z79.899 Other long term (current) drug therapy
CPT/HCPCS: 36415; 71045; 74177; 80048; 80076; 82077; 82947; 83690; 85025; 87635; 94640; 99285; J1170; J1200; J1650; J2270; J2405; J2560; Q0163; Q9967

== ENCOUNTER 2022-08-21 10:46 | Emergency (ER) | payer OTHER, SELFPAY ==
--- NOTE | ~2022-08-21 | CT_ITS ---
EXAMINATION: CT ABDOMEN AND PELVIS WITH CONTRAST CLINICAL INFORMATION: Pancreatitis with lipase of 1300 COMPARISON: CT abdomen and pelvis 06/26/2022 TECHNIQUE: Multidetector volumetric images were obtained from the superior aspect of the liver through the pubic symphysis following administration 85 mL of Omnipaque 350 intravenous contrast. Sagittal and coronal reformatted images were obtained on the technologist's workstation. Oral contrast: No This CT examination was performed using dose optimization techniques as appropriate, variously including the following: *Automated exposure control *Adjustment of mA and/or kV according to patient size (this includes techniques or standardized protocols for targeted exams where dose is matched to indication/reason for exam; i.e. extremities or head) *Use of iterative reconstruction technique DLP: 601 mGy-cm FINDINGS: LUNG BASES: The visualized lung bases are unremarkable. LIVER, GALLBLADDER, AND BILIARY TREE: Mild hepatomegaly. The right liver lobe measures 17.7 cm in length. Mild diffuse hepatic hypoattenuation consistent with steatosis. More dense area of fatty infiltration in the left liver lobe and about the falciform ligament. No liver lesion. No biliary ductal dilation. The gallbladder is unremarkable with no evidence of radiopaque gallstones, gallbladder wall thickening, or obvious pericholecystic inflammatory changes. PANCREAS: Diffuse peripancreatic inflammatory fat stranding and a small amount of nonloculated peripancreatic fluid, minimally more extensive than on prior 06/26/2022. No loculated peripancreatic fluid collection. The pancreatic parenchyma enhances normally. No ductal dilation or pancreatic lesion. Inflammatory changes extend into the pancreaticoduodenal groove periportal region as well SPLEEN: Unremarkable. ADRENAL GLANDS: Unremarkable. KIDNEYS AND URETERS: Symmetric nephrograms. No hydronephrosis or renal calculi. Small subcentimeter low-density probable cyst in the anterior left mid pole, unchanged. No further follow-up recommended. BLADDER: Unremarkable. GASTROINTESTINAL TRACT: Mild short segment apparent mural thickening of the colon at the hepatic flexure likely due to mild secondary inflammation from the pancreatitis. Mildly thick-walled appearance of the rectum versus incomplete distention. No perirectal inflammatory change. No additional bowel wall thickening. No dilated bowel loops. Normal appendix. No free air or ascites. ABDOMINAL WALL: No significant hernia is appreciated. LYMPH NODES: Couple of enlarged mesenteric lymph nodes in the right hemiabdomen adjacent to the hepatic flexure, largest 1.1 cm in short axis, similar to prior MR nonspecific, and presumably reactive. Additional low nodules, presumably enlarged lymph nodes in the left upper quadrant near the pancreatic tail and the gastric fundus measuring up to 1.6 cm in short axis on image 11 and 17 of series 3, similar to prior. No additional lymphadenopathy. VASCULAR: Normal caliber abdominal aorta. Mild vascular calcifications. Celiac, SMA, and CLAY appear patent. Some mild attenuation of the venous structures of the portal confluence likely due to surrounding peripancreatic edema. Splenic vein appears patent. No thrombus identified. PELVIC VISCERA: Unremarkable. OSSEOUS STRUCTURES: No acute fracture or suspicious osseous lesion. CT/CT abdomen pelvis w IV con IMPRESSION: 1. Findings compatible with pancreatitis with peripancreatic inflammatory fat stranding and small amount of nonloculated peripancreatic fluid, minimally more extensive than on prior 06/26/2022. 2. No CT evidence of pancreatic necrosis or loculated peripancreatic fluid collection. 3. Mild hepatomegaly and hepatic steatosis. 4. Mild short segment mural thickening of the colon at the hepatic flexure likely due to mild secondary inflammation from the adjacent pancreatitis. 5. Unchanged enlarged lymph nodes in the left upper quadrant and right hemiabdomen, presumably reactive in similar to prior. 6. Mild rectal wall thickening versus incomplete distention. Correlate clinically with signs or symptoms of proctitis.
[2022-08-21 10:53] VITALS: BP 159/87; PULSE 96; RESP 20; TEMP 37; O2SAT 96; BMI 26.6
[2022-08-21 11:44] LABS: Hematocrit 41.1 % (42.0-52.0); Hemoglobin 13.1 g/dl (14.0-18.0); Mean Corpuscular HGB Conc 31.9 g/dl (31.0-36.0); Mean Corpuscular Hemoglobin 29.2 pg (27.0-33.0); Mean Corpuscular Volume 91.5 fL (80.0-98.0); Mean Platelet Volume 9.2 fL (9.4-12.4); Platelet Count 102 X10*3/uL (160-400); Red Blood Count 4.49 X10*6/uL (4.60-5.80); White Blood Count 6.6 X10*3/uL (4.8-10.8)
[2022-08-21 12:21] LABS: Alanine Aminotransferase 10 U/L (0-40); Albumin Level 3.6 g/dL (3.5-5.0); Alkaline Phosphatase 47 U/L (39-117); Anion Gap 13 (12-20); Aspartate Amino Transferase 17 U/L (5-37); Bilirubin Total 0.9 mg/dL (0.0-1.0); Blood Urea Nitrogen 4 mg/dL (9-16); Calcium 8.5 mg/dL (8.4-10.2); Carbon Dioxide 30 mmol/L (22-29); Chloride 97 mmol/L (96-108); Creatinine Clr Calc Pharmacy 93.9; Estimated Glomerular Filt Rate > 60; Glucose Random 360 mg/dL (60-115); Potassium 3.2 mmol/L (3.3-5.1); Sodium 137 mmol/L (135-145); Total Protein 6.4 g/dL (6.5-8.0)
[2022-08-21 12:30] LABS: Bilirubin Direct 0.4 mg/dL (0.0-0.5)
[2022-08-21 13:07] LABS: Lipase 1295 U/L (8-78)
--- OUTSIDE RECORDS SUMMARY | 2022-08-21 14:58 | XMS_ITS | Continuity of Care Document ---
:1970 Author Organization [facility] Address [address] [place] [id number]- Care Team Providers Name Role Phone Bindu BOJORQUEZ, Gladis Chi Primary Care Physician Encounter [facility] Date(s): 06/24/22 - 07/30/[address] [id number] Attending Physician: Jhony Howe MD Admitting Physician: Jhony Howe MD Referring Physician: Jhony Howe MD Allergies, Adverse Reactions, Alerts Substance Reaction Severity [...] Refills, Maintenance, Tablet, Route to Pharmacy Electronically, [id number], [facility]/pharmacy #[id number] Start Date: 11/20/17 Stop Date: [...] 06/08/18 15:06:00 EDT, Route to Pharmacy Electronically, [id number], [facility]/pharmacy #[id number] Start Date: 06/08/18 Stop Date: [...] 0 Refills, Maintenance, 08/14/20 11:28:00 EST, Suspension, [facility]/pharmacy #[id number], Partial fill upon patient request, [...] tablet, 1 Refills,Maintenance, 04/23/22 8:09:00 EDT, Tablet, [facility] Partial fill upon patient request if the prescription is for a schedule II opio... Start Date: 04/23/22 Status: Orderedsildenafil 100 mg oral tablet 1 tablet = 100 mg, By Mouth, Daily, 1 hour before sexual activity; khalil pay, # 10 tablet, 1 Refills,Maintenance, 03/16/22 12:41:00 EDT, Tablet, [facility] Partial fill upon patient request [...] 0 Refills, Maintenance, 08/14/20 11:29:00 EST, Tablet, [facility]/pharmacy #[id number], Partial fill upon patient request, 170, cm, 08/14/20 7:16:00 EST, Height, 83.2, kg, 08/10/20 3:29:... Start Date: 08/14/20 Status: Ordered Problem List Condition Confirmation Course Effective Dates Status Health Stat us Informant Alcohol abuse Confirmed Active Depression Confirmed Active Diabetes mellitus Confirmed Active Hypertension Confirmed Active Social History Social History Type Response Smoking Status Current some day smoker; Tob acco user in household: No entered on: 08/29/13 Sex Patient Care team information Care Team PersonnelName: Darryl Crowder RN Position: [facility] RN Member Role: Primary Care Nurse Name: Ofelia Davila RN Position: [facility] RN Member Role: Primary Care Nurse Name: Gege Ferguson RN Position: [facility] RN Supv Member Role: Primary Care Nurse Name: Charanjit Harrington RN Position: [facility] RN Member Role: Primary Care Nurse Name: Darryl Toney Position: S RN Member Role: Primary Care Nurse Name: Meghan Meza Position: [facility] RN Member Role: Primary Care Nurse Name: Meryl Cuevas RN Position: [facility] RN Member Role: Primary Care Nurse Name: Salma Hyatt RN Position: [facility] RN Member Role: Primary Care Nurse Name: Susanne Jeronimo RN Position: [facility] RN Member Role: Primary Care Nurse Name: Gladis Ruano NP Position: Reference Physician Member Role: PCP Address: Address: [address] [place] [address]- Name: Tamia Muse RN Position: [facility] RN Member Role: Primary Care Nurse Name: Alexy Gu RN Position: [facility] RN Member Role: Primary Care Nurse Name: Eliza Luciano RN Position: [facility] SN RN Member Role: Primary Care Nurse Name: Chelsea Whitney RN Position: [facility] RN Member Role: Primary Care Nurse Name: Isabel Perez RN Position: [facility] Onco RN Member Role: Primary Care Nurse Name: Mona Gibson RN, I Position: [facility] RN Member Role: Primary Care Nurse Care Team Related PersonsName: JOSE PEREZ Address: [address] [place] [address]
--- NOTE | 2022-08-21 15:19 | ED_ITS ---
HPI - Abdominal Pain General Chief Complaint: Abdominal Pain Stated Complaint: abd pain Time Seen by Provider: 08/21/22 14:49 Source: patient and family History of Present Illness HPI narrative: 52-year-old male with a past medical history of alcohol abuse and pancreatitis presents to the emergency department today complaining of abdominal pain. Started over the last 24 hours and is worsening. Patient states feels similar to the last time he had pancreatitis. He has been drinking alcohol. Denies fevers or shaking chills. Had some nausea this morning but no diarrhea. MD elicited complaint: abdominal pain Onset (ago): day(s) Pain Consistency: constant Location: epigastric Severity: severe Pain scale (0-10): 10 Quality: stabbing and sharp Radiation: epigastric Migration to: no migration Exacerbating factors: eating Relieving factors: nothing Context: history of similar episodes Associated symptoms: nausea and vomiting Related Data Home Medications Medication Instructions Recorded Confirmed albuterol sulfate 90 mcg/actuation 2 puff inhalation BID PRN 06/27/22 06/27/22 aerosol inhaler (Ventolin HFA) Shortness Of Breath amlodipine 5 mg tablet 1 tab PO DAILY blood pressure 06/27/22 06/27/22 atorvastatin 40 mg tablet 1 tab PO DAILY 06/27/22 06/27/22 ferrous sulfate 325 mg (65 mg 1 tab PO DAILY 06/27/22 06/27/22 iron) tablet (FeroSul) folic acid 1 mg tablet 1 tab PO DAILY 06/27/22 06/27/22 magnesium oxide 400 mg (241.3 mg 1 tab PO DAILY 06/27/22 06/27/22 magnesium) tablet metformin 1,000 mg tablet 1 tab PO DAILY diabetes mellitus 06/27/22 06/27/22 metoprolol succinate 50 mg 1 tab PO DAILY blood pressure 06/27/22 06/27/22 tablet,extended release 24 hr multivitamin (One Daily 1 tab PO DAILY 06/27/22 06/27/22 Multivitamin tablet) naltrexone 50 mg tablet 1 tab PO DAILY 06/27/22 06/27/22 thiamine HCl (vitamin B1) 100 mg 1 tab PO DAILY 06/27/22 06/27/22 tablet (Vitamin B-1) Previous Rx's Medication Instructions Recorded nicotine 21 mg/24 hr daily 21 mg transdermal DAILY #28 ea 07/01/22 transdermal patch ondansetron 4 mg disintegrating 4 mg PO Q8H PRN nausea and 07/01/22 tablet vomiting #14 tabs Allergies Allergy/AdvReac Type Severity Reaction Status Date / Time fish derived [fish] Allergy Unknown Verified 10/02/20 12:44 phenytoin [From Dilantin] Allergy rash and Verified 06/27/22 08:45 itching acetaminophen [From Vicodin] AdvReac Unknown Verified 10/02/20 12:44 hydrocodone [From Vicodin] AdvReac Unknown Verified 10/02/20 12:44 Review of Systems Constitutional: Denies chills, Denies fever(s), Denies headache(s) and Reports lethargy Eyes: Denies blurry vision and Denies eye discharge Denies dizziness and Denies headache(s) Cardiovascular: Denies chest pain, Denies palpitations and Denies dyspnea Respiratory: Denies cough and Denies dyspnea Gastrointestinal: Denies abdominal pain, Denies nausea and Denies vomiting Musculoskeletal: Denies no additional musculoskeletal complaints Denies confusion, Denies dizziness and Denies headache(s) Psychiatric: Denies confusion Endocrine: Denies palpitations [facility] Past Medical History Attestation statement: The following information was validated with the patient. Medical History Acute on chronic pancreatitis Alcohol dependence Chronic pancreatitis Diabetes 1.5, managed as type 2 Hypertension Family History Family History Mother Alcohol dependence Diabetes CAD (coronary artery disease) HTN (hypertension) Father Alcohol dependence Social History Social History Household Members: Family Housing: Apartment Do you presently have visiting nurse or other home services: No Patient Tobacco Use Status: Current everyday Tobacco user Tobacco use type: Cigar Cigarette Packs Per Day: 1 Cigarettes Per Day: 20.0 Substance Use Type: Marijuana Advance Directives: No Advance Directives Information Provided: Yes service: No Current occupational status: unemployed Physical Exam ED Vital Signs: Vital Signs - 24 hr 08/21/22 10:53 Temperature 98.6 F Pulse Rate 96 Respiratory Rate 20 Blood Pressure 159/87 H Pulse Oximetry 96 Oxygen Delivery Method Room Air BMI result Body Mass Index 26.6 vital signs normal, with exception of mild hypertension Const General: cooperative and no acute distress; No confusion or lethargic Orientation/consciousness: patient oriented x3, No confusion and No lethargic Limitations: no limitations HENMT Head: Yes normocephalic and Yes atraumatic Ears: external ears normal General nose exam: Normal external nose present Face and sinus: Yes normal facial exam Eyes Sclerae: sclerae normal Corneas: corneas normal Pupils: Equal, round and reactive pupils present EOM: EOMs intact bilaterally Neck Neck: Yes normal visual inspection and Yes full ROM Resp Effort & Inspection: normal respiratory effort, no audible wheezes, no cough and not labored Cardio Rate: regular rate Rhythm: regular rhythm GI Inspection: Yes normal to inspection and No distended Palpation (GI): Soft to palpation and nontender Auscultation: normal bowel sounds Skin General skin exam: no rashes or lesions noted and no jaundice Neuro General: patient oriented x3 and No confusion Cranial nerves: Yes CN's II-XII intact bilaterally and Yes Equal, round and reactive pupils present Gait exam (Neuro): Normal gait present Psych Appearance: grossly normal Mental Status: mental status grossly normal Speech and movement: Normal speech and movement present MDM - Abdominal Pain MDM Narrative Medical decision making narrative: 52-year-old male with a past medical history of pancreatitis presents with upper abdominal pain, consistent with previous episodes of pancreatitis. Despite having a previous diagnosis of pancreatitis, patient still imbibes in alcohol. Laboratory studies reviewed, documented below. The patient will have a CT scan of the abdomen and pelvis, simply for the reason that he states this pain feels different than his previous pancreatitis. Differential Diagnosis Differential diagnosis: Likely abdominal pain, constipation, gastroenteritis, gastritis, pancreatitis and peptic ulcer disease Medical Records Attestation: I reviewed the patient's medical records. Lab Data Attestation: I reviewed the patient's lab results. Lab results narrative: Laboratory studies unremarkable except for the lipase which is elevated at 1295 Result diagrams: 08/21/22 11:30 08/21/22 11:30 Labs: Lab Results 08/21/22 08/21/22 Range/Units 11:30 11:30 WBC 6.6 (4.8-10.8) X10*3/uL RBC 4.49 L (4.60-5.80) X10*6/uL Hgb 13.1 L (14.0-18.0) g/dl Hct 41.1 L (42.0-52.0) % MCV 91.5 (80.0-98.0) fL MCH 29.2 (27.0-33.0) pg MCHC 31.9 (31.0-36.0) g/dl RDW 15.0 (11.0-16.0) % Plt Count 102 L (160-400) X10*3/uL MPV 9.2 L (9.4-12.4) fL Absolute Nucleated RBC 0.000 (0.0-0.012) X10*3/uL Nucleated RBC % (auto) 0.0 (0.0-0.2) /100WBC Sodium 137 (135-145) mmol/L Potassium 3.2 L (3.3-5.1) mmol/L Chloride 97 (96-108) mmol/L Carbon Dioxide 30 H (22-29) mmol/L Anion Gap 13 (12-20) BUN 4 L (9-16) mg/dL Creatinine 0.85 (0.5-1.4) mg/dL Estim Creat Clear Calc 93.9 Estimated GFR > 60 Random Glucose 360 H* (60-115) mg/dL Calcium 8.5 (8.4-10.2) mg/dL Total Bilirubin 0.9 (0.0-1.0) mg/dL Direct Bilirubin 0.4 (0.0-0.5) mg/dL AST 17 (5-37) U/L ALT 10 (0-40) U/L Alkaline Phosphatase 47 (39-117) U/L Total Protein 6.4 L (6.5-8.0) g/dL Albumin 3.6 (3.5-5.0) g/dL Lipase 1295 H (8-78) U/L Discharge Plan Discharge Prescriptions: No Action atorvastatin 40 mg tablet 1 tab PO DAILY metoprolol succinate 50 mg tablet extended release 24 hr 1 tab PO DAILY naltrexone 50 mg tablet 1 tab PO DAILY thiamine HCl (vitamin B1) [Vitamin B-1] 100 mg tablet 1 tab PO DAILY magnesium oxide 400 mg (241.3 mg magnesium) tablet 1 tab PO DAILY ferrous sulfate [FeroSul] 325 mg (65 mg iron) tablet 1 tab PO DAILY folic acid 1 mg tablet 1 tab PO DAILY multivitamin [One Daily Multivitamin] Tablet 1 tab PO DAILY albuterol sulfate [Ventolin HFA] 90 mcg/actuation HFA aerosol inhaler 2 puff inhalation BID PRN (Reason: Shortness Of Breath) amlodipine 5 mg tablet 1 tab PO DAILY metformin 1,000 mg tablet 1 tab PO DAILY nicotine 21 mg/24 hr Patch 24 Hour 21 mg transdermal DAILY Qty: 28 2RF ondansetron 4 mg tablet,disintegrating 4 mg PO Q8H PRN (Reason: nausea and vomiting) Qty: 14 0RF
[2022-08-21] MEDS: Ketorolac Tromethamine 15 MG/ML VIAL IVPUSH (16:25)
[2022-08-21] MEDS: ondansetron HCL 4 MG/2 ML VIAL IVPUSH (16:26)
[2022-08-21 16:32] VITALS: BP 150/71; PULSE 70; RESP 18; TEMP 36.8; O2SAT 98
[2022-08-21] MEDS: iohexoL 350 MG/ML 100 ML INFUS..BTL 85 ML IV (17:12)
[2022-08-21 18:00] VITALS: BP 144/74; PULSE 70; RESP 16; TEMP 36.7; O2SAT 96
--- NOTE | 2022-08-21 18:17 | ED_ITS ---
HPI - General Adult General Chief complaint: Abdominal Pain Stated complaint: abd pain Time Seen by Provider: 08/21/22 14:49 Source: patient and family History of Present Illness HPI narrative: This is an addendum to the note on this patient done by Dr. Ontiveros from the same visit today. I took over care of this patient pending the patient's CT scan. Related Data Home Medications Medication Instructions Recorded Confirmed albuterol sulfate 90 mcg/actuation 2 puff inhalation BID PRN 06/27/22 06/27/22 aerosol inhaler (Ventolin HFA) Shortness Of Breath amlodipine 5 mg tablet 1 tab PO DAILY blood pressure 06/27/22 06/27/22 atorvastatin 40 mg tablet 1 tab PO DAILY 06/27/22 06/27/22 ferrous sulfate 325 mg (65 mg 1 tab PO DAILY 06/27/22 06/27/22 iron) tablet (FeroSul) folic acid 1 mg tablet 1 tab PO DAILY 06/27/22 06/27/22 magnesium oxide 400 mg (241.3 mg 1 tab PO DAILY 06/27/22 06/27/22 magnesium) tablet metformin 1,000 mg tablet 1 tab PO DAILY diabetes mellitus 06/27/22 06/27/22 metoprolol succinate 50 mg 1 tab PO DAILY blood pressure 06/27/22 06/27/22 tablet,extended release 24 hr multivitamin (One Daily 1 tab PO DAILY 06/27/22 06/27/22 Multivitamin tablet) naltrexone 50 mg tablet 1 tab PO DAILY 06/27/22 06/27/22 thiamine HCl (vitamin B1) 100 mg 1 tab PO DAILY 06/27/22 06/27/22 tablet (Vitamin B-1) Previous Rx's Medication Instructions Recorded nicotine 21 mg/24 hr daily 21 mg transdermal DAILY #28 ea 07/01/22 transdermal patch ondansetron 4 mg disintegrating 4 mg PO Q8H PRN nausea and 07/01/22 tablet vomiting #14 tabs ondansetron 4 mg disintegrating 4 mg PO Q6H PRN nausea and 08/21/22 tablet vomiting #8 tabs oxycodone 10 mg tablet 10 mg PO Q6H PRN pain #10 tabs 08/21/22 Allergies Allergy/AdvReac Type Severity Reaction Status Date / Time fish derived [fish] Allergy Unknown Verified 10/02/20 12:44 phenytoin [From Dilantin] Allergy rash and Verified 06/27/22 08:45 itching acetaminophen [From Vicodin] AdvReac Unknown Verified 10/02/20 12:44 hydrocodone [From Vicodin] AdvReac Unknown Verified 10/02/20 12:44 [facility] Past Medical History Medical History Acute on chronic pancreatitis Alcohol dependence Chronic pancreatitis Diabetes 1.5, managed as type 2 Hypertension Family History Family History Mother Alcohol dependence Diabetes CAD (coronary artery disease) HTN (hypertension) Father Alcohol dependence Social History Social History Household Members: Family Housing: Apartment Do you presently have visiting nurse or other home services: No Patient Tobacco Use Status: Current everyday Tobacco user Tobacco use type: Cigar Cigarette Packs Per Day: 1 Cigarettes Per Day: 20.0 Substance Use Type: Marijuana Advance Directives: No Advance Directives Information Provided: Yes service: No Current occupational status: unemployed Physical Exam ED Vital Signs: Vital Signs - 24 hr 08/21/22 10:53 08/21/22 16:32 08/21/22 18:00 Temperature 98.6 F 98.2 F 98.0 F Pulse Rate 96 70 70 Respiratory Rate 20 18 16 Blood Pressure 159/87 H 150/71 H 144/74 H Pulse Oximetry 96 98 96 Oxygen Delivery Method Room Air Room Air Room Air BMI result Body Mass Index 26.6 Course Course Course Narrative: Patient was re-evaluated at 18:00. He was frustrated that he had not received pain medicine. He did receive Toradol as ordered by Dr. Ontiveros. Patient does feel comfortable going home. He does have follow-up with his doctor tomorrow. Patient denies being on naltrexone, states he never abused opiates. I am prescribing the patient few days of oxycodone and ondansetron. Medications Administered Discontinued Medications Generic Name Dose Route Start Last Admin Trade Name Freq PRN Reason Stop Dose Admin Iohexol 85 ml 08/21/22 17:11 08/21/22 17:12 Iohexol 350 Mg/Ml 100 Ml Infus..Btl IV 08/21/22 17:12 85 ml ONCE ONE Administration Ketorolac Tromethamine 15 mg 08/21/22 15:18 08/21/22 16:25 Ketorolac Tromethamine 15 Mg/Ml Vial IVPUSH 08/21/22 15:19 15 mg ONCE ONE Administration Ondansetron HCl 4 mg 08/21/22 15:17 08/21/22 16:26 Ondansetron Hcl 4 Mg/2 Ml Vial IVPUSH 08/21/22 15:18 4 mg ONCE ONE Administration Medical Decision Making Lab Data Result diagrams: 08/21/22 11:30 08/21/22 11:30 Labs: Lab Results 08/21/22 08/21/22 Range/Units 11:30 11:30 WBC 6.6 (4.8-10.8) X10*3/uL RBC 4.49 L (4.60-5.80) X10*6/uL Hgb 13.1 L (14.0-18.0) g/dl Hct 41.1 L (42.0-52.0) % MCV 91.5 (80.0-98.0) fL MCH 29.2 (27.0-33.0) pg MCHC 31.9 (31.0-36.0) g/dl RDW 15.0 (11.0-16.0) % Plt Count 102 L (160-400) X10*3/uL MPV 9.2 L (9.4-12.4) fL Absolute Nucleated RBC 0.000 (0.0-0.012) X10*3/uL Nucleated RBC % (auto) 0.0 (0.0-0.2) /100WBC Sodium 137 (135-145) mmol/L Potassium 3.2 L (3.3-5.1) mmol/L Chloride 97 (96-108) mmol/L Carbon Dioxide 30 H (22-29) mmol/L Anion Gap 13 (12-20) BUN 4 L (9-16) mg/dL Creatinine 0.85 (0.5-1.4) mg/dL Estim Creat Clear Calc 93.9 Estimated GFR > 60 Random Glucose 360 H* (60-115) mg/dL Calcium 8.5 (8.4-10.2) mg/dL Total Bilirubin 0.9 (0.0-1.0) mg/dL Direct Bilirubin 0.4 (0.0-0.5) mg/dL AST 17 (5-37) U/L ALT 10 (0-40) U/L Alkaline Phosphatase 47 (39-117) U/L Total Protein 6.4 L (6.5-8.0) g/dL Albumin 3.6 (3.5-5.0) g/dL Lipase 1295 H (8-78) U/L Imaging Data CT abdomen and pelvis with IV contrast: Radiologist's impression: IMPRESSION: 1.? Findings compatible with pancreatitis with peripancreatic inflammatory fat stranding and small amount of nonloculated peripancreatic fluid, minimally more extensive than on prior 06/26/2022. 2.? No CT evidence of pancreatic necrosis or loculated peripancreatic fluid collection. 3.? Mild hepatomegaly and hepatic steatosis. 4.? Mild short segment mural thickening of the colon at the hepatic flexure likely due to mild secondary inflammation from the adjacent pancreatitis. 5.? Unchanged enlarged lymph nodes in the left upper quadrant and right hemiabdomen, presumably reactive in similar to prior. 6.? Mild rectal wall thickening versus incomplete distention. Correlate clinically with signs or symptoms of proctitis. ? Discharge Plan Discharge Clinical Impression: Acute on chronic pancreatitis Patient Disposition: Home, Self-Care Instructions: Pancreatitis (ED) Additional Instructions: Drink clear liquids, and avoid solid food for the next few days. Avoid alcohol use. Follow-up with primary care physician as scheduled tomorrow. Use oxycodone and ondansetron as prescribed for pain and nausea. You have stated you are not on naltrexone even though this is listed under medications. I am prescribing you an opiate pain medicine to take for a few days however may not have a good effect if you are on naltrexone. Prescriptions: New oxycodone 10 mg tablet 10 mg PO Q6H PRN (Reason: pain) Qty: 10 0RF Rx Instructions: Partial Fill upon patient request. ondansetron 4 mg tablet,disintegrating 4 mg PO Q6H PRN (Reason: nausea and vomiting) Qty: 8 0RF No Action atorvastatin 40 mg tablet 1 tab PO DAILY metoprolol succinate 50 mg tablet extended release 24 hr 1 tab PO DAILY naltrexone 50 mg tablet 1 tab PO DAILY thiamine HCl (vitamin B1) [Vitamin B-1] 100 mg tablet 1 tab PO DAILY magnesium oxide 400 mg (241.3 mg magnesium) tablet 1 tab PO DAILY ferrous sulfate [FeroSul] 325 mg (65 mg iron) tablet 1 tab PO DAILY folic acid 1 mg tablet 1 tab PO DAILY multivitamin [One Daily Multivitamin] Tablet 1 tab PO DAILY albuterol sulfate [Ventolin HFA] 90 mcg/actuation HFA aerosol inhaler 2 puff inhalation BID PRN (Reason: Shortness Of Breath) amlodipine 5 mg tablet 1 tab PO DAILY metformin 1,000 mg tablet 1 tab PO DAILY nicotine 21 mg/24 hr Patch 24 Hour 21 mg transdermal DAILY Qty: 28 2RF ondansetron 4 mg tablet,disintegrating 4 mg PO Q8H PRN (Reason: nausea and vomiting) Qty: 14 0RF
[2022-08-21] MEDS: oxyCODONE HCl Immed Release 5 MG TABLET 10 MG PO (18:33)
== END 2022-08-21 18:40 | disposition home or self-care (01) ==
PROVIDERS: Emergency Medicine; Emergency Provider Emergency Medicine; PCP Internal Medicine
DX: K86.1 Other chronic pancreatitis (principal); K85.90 Acute pancreatitis without necrosis or infection, unspecified; F10.20 Alcohol dependence, uncomplicated; Y90.9 Presence of alcohol in blood, level not specified; E13.9 Other specified diabetes mellitus without complications; F17.200 Nicotine dependence, unspecified, uncomplicated; F12.90 Cannabis use, unspecified, uncomplicated; Z79.02 Long term (current) use of antithrombotics/antiplatelets; Z79.84 Long term (current) use of oral hypoglycemic drugs; Z79.899 Other long term (current) drug therapy
CPT/HCPCS: 36415; 74177; 80048; 80076; 83690; 85027; 96374; 96375; 99284; J1885; J2405; Q9967

== ENCOUNTER 2022-09-23 01:05 | Inpatient (IN) | payer OTHER, SELFPAY ==
[2022-09-23] VITALS (11 sets, daily range): BP systolic 131–177; BP diastolic 72–100; PULSE 89–136; RESP 14–26; TEMP 36.1–36.8; O2SAT 92–97; BMI 29.0
--- NOTE | ~2022-09-23 | CT_ITS ---
EXAMINATION: CT ABDOMEN AND PELVIS WITHOUT CONTRAST CLINICAL INFORMATION: Question pancreatitis COMPARISON: 08/21/2022 TECHNIQUE: Multidetector volumetric imaging was performed from the superior aspect of the liver through the pubic symphysis. Sagittal and coronal reformatted images were obtained on the technologist's workstation. This CT examination was performed using dose optimization techniques as appropriate, variously including the following: *Automated exposure control *Adjustment of mA and/or kV according to patient size (this includes techniques or standardized protocols for targeted exams where dose is matched to indication/reason for exam; i.e. extremities or head) *Use of iterative reconstruction technique DLP: 554 mGy-cm FINDINGS: LUNG BASES: The visualized lung bases are unremarkable. LIVER, GALLBLADDER, AND BILIARY TREE: Mild hepatomegaly. Diffuse hepatic steatosis. No focal liver lesions. Mild fat stranding along the right lobe liver. No biliary dilatation. Gallbladder unremarkable. PANCREAS: Decreased peripancreatic fluid and fat stranding compared to prior. No acute necrotic or peripancreatic fluid collections. SPLEEN: Unremarkable. ADRENAL GLANDS: Unremarkable. KIDNEYS AND URETERS: The kidneys are normal in size, shape, and attenuation. No hydronephrosis, hydroureter, or calculi seen. No perinephric stranding. BLADDER: Unremarkable. GASTROINTESTINAL TRACT: Scattered colonic diverticula. No evidence of diverticulitis. Minimal fat stranding in the greater omentum, decreased from prior. Stomach and small bowel unremarkable. Normal appendix. ABDOMINAL WALL: No significant hernia is appreciated. LYMPH NODES: Normal. VASCULAR: Aorta is atherosclerotic but normal caliber. PELVIC VISCERA: Prostate and seminal vesicles unremarkable. Small pelvic free fluid. OSSEOUS STRUCTURES: No acute or suspicious osseous abnormalities. CT/CT abdomen pelvis wo IV con IMPRESSION: * Improving peripancreatic fat stranding, with resolution of previously seen peripancreatic fluid seen on 08/21/2022. Findings compatible with convalescent pancreatitis. * No fluid collections. * Hepatomegaly and diffuse hepatic steatosis. * Small pelvic free fluid, nonspecific. There is also mild fat stranding along the right lobe liver and within the greater omentum. Fat stranding along the liver is increased from prior. Consider hepatitis/steatohepatitis.
--- NOTE | ~2022-09-23 | XR_ITS ---
EXAMINATION: XR CHEST CLINICAL INFORMATION: Short of breath COMPARISON: 09/23/2022 TECHNIQUE: Frontal view of the chest was obtained. FINDINGS: The lungs are well expanded. Increased left basilar opacity. Small left pleural effusion. No pneumothorax. No edema. The cardiomediastinal silhouette is within normal limits. Nonaggressive appearing sclerotic lesion in the proximal right humerus. XR/XR chest 1V IMPRESSION: Small left pleural effusion. Increased left basilar opacity which could represent atelectasis or pneumonia.
--- NOTE | ~2022-09-23 | XR_ITS ---
EXAMINATION: XR CHEST CLINICAL INFORMATION: Shortness of breath COMPARISON: 06/29/2022 TECHNIQUE: Frontal view of the chest was obtained. FINDINGS: No significant abnormality is noted involving the heart, lungs, mediastinum, bony thorax or soft tissues. XR/XR chest 1V IMPRESSION: Unremarkable examination.
--- NOTE | 2022-09-23 01:22 | ECG_ITS ---
Test Reason : SOB Blood Pressure : / mmHG Vent. Rate : 109 BPM Atrial Rate : 109 BPM P-R Int : 148 ms QRS Dur : 076 ms QT Int : 382 ms P-R-T Axes : 025 001 064 degrees QTc Int : 514 ms Sinus tachycardia Otherwise normal ECG When compared with ECG of 19-NOV-2004 06:49, Non-specific change in ST segment in Lateral leads T wave amplitude has decreased in Anterior leads Nonspecific T wave abnormality no longer evident in Lateral leads QT has lengthened Referred By: Generic ED Physician Electronically Signed By:KIRSTIE OLVERA
[2022-09-23] MEDS: Magnesium Sulfate/H2O 2 GM/50 ML PIGGYBACK IV ×3 (01:59→10:51)
[2022-09-23] MEDS: 0.9 % Sodium Chloride 1,000 ML 999 ML IV ×2 (01:59→06:10)
[2022-09-23] MEDS: Albuterol/Iprat 2.5/0.5MG 3 ML AMPUL.NEB INHALE (01:59)
[2022-09-23] MEDS: Albuterol Sulfate 2.5 MG, Albuterol Sulfate (0.083%) 2.5 MG 5 MG INHALE (01:59)
[2022-09-23] MEDS: methylPREDNISolone Sod Succ 125 MG/2 ML VIAL IVPUSH (01:59)
[2022-09-23] MEDS: HYDROmorphone HCl 2 MG/ML VIAL IVPUSH ×2 (01:59→06:11)
--- NOTE | 2022-09-23 02:00 | ED.GENADULT ---
HPI - General Adult General Chief complaint: Dyspnea Stated complaint: SOB/Abd Pain Time Seen by Provider: 09/23/22 01:37 Source: patient and EMS Mode of arrival: EMS Limitations: no limitations History of Present Illness HPI narrative: 52-year-old male came in by ambulance for evaluation of abdominal pain and vomiting with shortness of breath. Patient with history of hypertension, non insulin-dependent diabetes type 2, acute on chronic pancreatitis secondary to alcohol consumption, alcohol withdrawal symptoms, asthma. Patient admitted to drinking alcohol last drink was last night started to have abdominal pain that the patient is very familiar with and similar to his previous episodes of pancreatitis. Patient also is complaining of wheezing and shortness of breath with dry coughing patient is known to have asthma and uses albuterol at home. Related Data Home Medications Medication Instructions Recorded Confirmed albuterol sulfate 90 mcg/actuation 2 puff inhalation BID PRN 06/27/22 09/23/22 aerosol inhaler (Ventolin HFA) Shortness Of Breath amlodipine 5 mg tablet 1 tab PO DAILY blood pressure 06/27/22 09/23/22 atorvastatin 40 mg tablet 1 tab PO DAILY 06/27/22 09/23/22 ferrous sulfate 325 mg (65 mg 1 tab PO DAILY 06/27/22 09/23/22 iron) tablet (FeroSul) folic acid 1 mg tablet 1 tab PO DAILY 06/27/22 09/23/22 magnesium oxide 400 mg (241.3 mg 1 tab PO DAILY 06/27/22 09/23/22 magnesium) tablet metformin 1,000 mg tablet 1 tab PO DAILY diabetes mellitus 06/27/22 09/23/22 metoprolol succinate 50 mg 1 tab PO DAILY blood pressure 06/27/22 09/23/22 tablet,extended release 24 hr multivitamin (One Daily 1 tab PO DAILY 06/27/22 09/23/22 Multivitamin tablet) naltrexone 50 mg tablet 1 tab PO DAILY 06/27/22 09/23/22 thiamine HCl (vitamin B1) 100 mg 1 tab PO DAILY 06/27/22 09/23/22 tablet (Vitamin B-1) trazodone 150 mg tablet 1 - 2 tab PO BEDTIME 09/23/22 09/23/22 Previous Rx's Medication Instructions Recorded nicotine 21 mg/24 hr daily 21 mg transdermal DAILY #28 ea 07/01/22 transdermal patch ondansetron 4 mg disintegrating 4 mg PO Q6H PRN nausea and 08/21/22 tablet vomiting #8 tabs Allergies Allergy/AdvReac Type Severity Reaction Status Date / Time fish derived [fish] Allergy Unknown Verified 10/02/20 12:44 phenytoin [From Dilantin] Allergy rash and Verified 06/27/22 08:45 itching acetaminophen [From Vicodin] AdvReac Unknown Verified 10/02/20 12:44 hydrocodone [From Vicodin] AdvReac Unknown Verified 10/02/20 12:44 Review of Systems Review of Systems: All other systems are reviewed and are negative Constitutional: Reports as per HPI and Reports no additional constitutional complaints Eyes: Reports as per HPI and Reports no additional eye complaints Reports system reviewed and no additional complaints, except as documented Cardiovascular: Reports as per HPI and Reports no additional cardiovascular complaints Respiratory: Reports as per HPI and Reports no additional respiratory complaints Gastrointestinal: Reports as per HPI and Reports no additional gastrointestinal complaints Genitourinary: Reports no additional female genitourinary complaints Musculoskeletal: Reports no additional musculoskeletal complaints Skin/Breast: Reports system reviewed and no additional complaints, except as docu Psychiatric: Reports no additional psychiatric complaints Endocrine: Reports no additional endocrine complaints Hematologic/Lymphatic: Reports no additional hematologic/lymphatic complaints Allergic/Immunologic: Reports no additional allergic/immunologic complaints Reports system reviewed and no additional complaints, except as documented and Reports Abnormal speech present [facility] Past Medical History Medical History Acute on chronic pancreatitis Alcohol dependence Chronic pancreatitis Diabetes 1.5, managed as type 2 Hypertension Family History Family History Mother Alcohol dependence Diabetes CAD (coronary artery disease) HTN (hypertension) Father Alcohol dependence Social History Social History Household Members: Family Housing: Apartment Do you presently have visiting nurse or other home services: No Alcohol intake: current Alcohol intake frequency: 3 or more drinks per day Alcohol type: hard liquor Patient Tobacco Use Status: Current everyday Tobacco user Tobacco use type: Cigar Cigarette Packs Per Day: 1 Cigarettes Per Day: 20.0 Smoked in Last 30 Days: Yes Use of substances other than those prescribed or required for medical reasons: No Substance Use Type: Marijuana Advance Directives: No service: No Current occupational status: unemployed Physical Exam ED Vital Signs: Vital Signs - 24 hr 09/23/22 01:47 09/23/22 01:50 09/23/22 02:01 Temperature 98.2 F Pulse Rate 100 108 H Respiratory Rate 26 H 18 Blood Pressure 177/92 H Pulse Oximetry 96 Oxygen Delivery Method Room Air 09/23/22 04:00 Temperature Pulse Rate 108 H Respiratory Rate 16 Blood Pressure 152/83 H Pulse Oximetry 93 Oxygen Delivery Method Room Air BMI result Body Mass Index 29.0 Vital signs have been reviewed as appeared to be correct. Blood pressure normal. Heart rate normal. Respiration rate normal. Temperature normal. Oxygen saturation normal. Appearance: Alert. Oriented X3. Appear uncomfortable. Head: Normal external exam. Normocephalic. Atraumatic. No [place] signs noted. No raccoon eyes noted Eyes: PERRLA. EOMI. Conjunctiva and sclera normal. Eyelids normal. ENT: TM's Normal. Pharynx normal. Uvula midline. Moist mucous membranes. No trismus noted. No drooling noted. No muffled voice noted. Neck: Normal inspection. Neck supple. FROM. No adenopathy. Thyroid Normal. No meningeal signs. No neck mass noted. CVS: Normal heart rate and rhythm. Heart sound normal. No murmurs noted. Pulses normal throughout. Respiratory: No respiratory distress. Painless inspiration. Breath sounds normal. Bilateral diffuse mild expiratory wheezing with prolonged expiration.. Chest nontender. No accessory muscle usage noted or decreased air movement noted. Abdomen: Soft and nontender. Bowel sounds normal in all 4 quadrants. No distention noted. No organomegaly noted. No visible injury noted. Back: No CVA tenderness. Full range of motion noted. Skin: Skin warm and dry. Normal skin color. Normal skin turgor. No rashes/lesions/lacerations noted. Extremities: No lower extremity edema. Extremities exhibit normal range of motion. Extremities nontender. Neuro: Oriented X 3. Cranial nerve exam: II-XII are grossly intact No motor deficit. No sensory deficit. Reflexes normal. Course Course Course Narrative: 52-year-old male with a chronic history of alcohol consumption and alcoholic pancreatitis presented with severe abdominal pain that now is controlled with Dilaudid after drinking alcohol, patient last drink was 24 hours ago started to have withdrawal symptoms and patient started on phenobarb. Hypomagnesemia repleted with 2 g of magnesium. Shortness of breath and wheezing due to asthma exacerbation patient is feeling better after bronchodilator and Solu-Medrol. Lactic acidosis likely secondary to dehydration and also possibly use of albuterol. There is no source of infection at this point. Will cover with 1 dose of empirical Zosyn. Medications Administered Discontinued Medications Generic Name Dose Route Start Last Admin Trade Name Freq PRN Reason Stop Dose Admin Albuterol Sulfate 2.5 mg/ 5 mg 09/23/22 01:37 09/23/22 01:59 Albuterol Sulfate 2.5 mg INHALE 09/23/22 01:38 5 mg ONCE ONE Administration Albuterol/Ipratropium 3 ml 09/23/22 01:37 09/23/22 01:59 Albuterol/Iprat 2.5/0.5mg 3 Ml Ampul.Neb INHALE 09/23/22 01:38 3 ml ONCE ONE Administration Hydromorphone HCl 2 mg 09/23/22 01:37 09/23/22 01:59 Hydromorphone Hcl 2 Mg/Ml Vial IVPUSH 09/23/22 01:38 2 mg ONCE ONE Administration Protocol Sodium Chloride 1,000 mls @ 999 mls/hr 09/23/22 01:37 09/23/22 04:27 Ns IV 09/23/22 02:37 Infused .Q1H1M ONE Infusion Magnesium Sulfate 2 gm in 50 mls @ 25 mls/hr 09/23/22 01:37 09/23/22 02:25 Magnesium Sulfate/H2o IV 09/23/22 03:36 Infused ONCE ONE Infusion Insulin Human Regular 10 unit 09/23/22 03:13 09/23/22 03:47 Insulin Regular, Human 100 Unit/Ml 3 Ml Vial IVPUSH 09/23/22 03:14 10 unit ONCE ONE Administration Methylprednisolone Sodium Succinate 125 mg 09/23/22 01:37 09/23/22 01:59 Methylprednisolone Sod Succ 125 Mg/2 Ml Vial IVPUSH 09/23/22 01:38 125 mg ONCE ONE Administration Phenobarbital Sodium 208 mg 09/23/22 04:00 09/23/22 03:53 Phenobarbital Sodium 130 Mg/Ml Im Once IM 09/23/22 04:01 208 mg ONCE ONE Administration Medical Decision Making Differential Diagnosis Differential Diagnoses: The differential diagnosis associated with the presentation includes (Alcoholic gastritis, alcoholic pancreatitis, electrolyte disturbance, asthma exacerbation, pneumonia.) Lab Data MDM Lab Attestation statement: I reviewed the patient's lab results. Result Diagrams: 09/23/22 02:33 09/23/22 02:33 Labs: Lab Results 09/23/22 09/23/22 09/23/22 Range/Units 02:33 02:33 02:33 WBC 8.6 (4.8-10.8) X10*3/uL RBC 5.00 (4.60-5.80) X10*6/uL Hgb 14.1 (14.0-18.0) g/dl Hct 44.4 (42.0-52.0) % MCV 88.8 (80.0-98.0) fL MCH 28.2 (27.0-33.0) pg MCHC 31.8 (31.0-36.0) g/dl RDW 14.3 (11.0-16.0) % Plt Count 208 D (160-400) X10*3/uL MPV 9.7 (9.4-12.4) fL Immature Gran % (Auto) 0.5 H (0.0-0.4) % Neut % (Auto) 88.0 H (45-73) % Lymph % (Auto) 7.7 L (20-40) % [place] % (Auto) 3.7 (2-11) % Eos % (Auto) 0.0 (0-4) % Baso % (Auto) 0.1 (0-2) % Lymph # (Auto) 0.7 L (1.2-4.9) X10*3/uL [place] # (Auto) 0.3 (0.1-1.2) X10*3/uL Eos # (Auto) 0.0 (0.0-0.4) X10*3/uL Baso # (Auto) 0.0 (0.0-0.2) X10*3/uL Abs Immat Gran (auto) 0.04 H (0.00-0.03) X10*3/uL Absolute Neuts (auto) 7.6 (2.0-8.3) x10*3/uL Absolute Nucleated RBC 0.000 (0.0-0.012) X10*3/uL Nucleated RBC % (auto) 0.0 (0.0-0.2) /100WBC Sodium 139 (135-145) mmol/L Potassium 3.7 (3.3-5.1) mmol/L Chloride 100 (96-108) mmol/L Carbon Dioxide 24 (22-29) mmol/L Anion Gap 19 (12-20) BUN 3 L (9-16) mg/dL Creatinine 0.70 (0.5-1.4) mg/dL Estim Creat Clear Calc 126.4 Estimated GFR > 60 POC Glucose (60-115) mg/dL Random Glucose 417 H* (60-115) mg/dL Lactic Acid 2.4 H* (0.5-2.0) mmol/L Lactic Acid F/U @ 2Hr (0.5-2.0) mmol/L Calcium 8.6 (8.4-10.2) mg/dL Magnesium 1.1 L* (1.6-2.6) mg/dL Total Bilirubin 1.0 (0.0-1.0) mg/dL Direct Bilirubin 0.5 (0.0-0.5) mg/dL AST 16 (5-37) U/L ALT 8 (0-40) U/L Alkaline Phosphatase 86 (39-117) U/L Troponin I High Sens (<3.5-35.0) ng/L B-Natriuretic Peptide (<100) pg/mL Total Protein 7.1 (6.5-8.0) g/dL Albumin 3.2 L (3.5-5.0) g/dL Lipase 59 (8-78) U/L Urine Color Urine Appearance Urine pH (5.0-9.0) Ur Specific [place] (1.005-1.025) Urine Protein (Neg-Trace) mg/dL Urine Glucose (UA) (Negative) mg/dL Urine Ketones (Negative) mg/dL Urine Blood (Negative) Urine Nitrite (Negative) Ur Leukocyte Esterase (Negative) Urine RBC (0-2) /HPF Urine WBC (0-5) /HPF Ur Squamous Epith Cells (0-2) /HPF Urine Bacteria (None Seen) Hyaline Casts (0-2) /LPF Influenza Type A (PCR) (Negative) Influenza Type B (PCR) (Negative) RSV RNA Qual (PCR) (Negative) SARS-CoV-2 RNA (RT-PCR) (Negative) 09/23/22 09/23/22 09/23/22 Range/Units 02:33 02:33 02:33 WBC (4.8-10.8) X10*3/uL RBC (4.60-5.80) X10*6/uL Hgb (14.0-18.0) g/dl Hct (42.0-52.0) % MCV (80.0-98.0) fL MCH (27.0-33.0) pg MCHC (31.0-36.0) g/dl RDW (11.0-16.0) % Plt Count (160-400) X10*3/uL MPV (9.4-12.4) fL Immature Gran % (Auto) (0.0-0.4) % Neut % (Auto) (45-73) % Lymph % (Auto) (20-40) % [place] % (Auto) (2-11) % Eos % (Auto) (0-4) % Baso % (Auto) (0-2) % Lymph # (Auto) (1.2-4.9) X10*3/uL [place] # (Auto) (0.1-1.2) X10*3/uL Eos # (Auto) (0.0-0.4) X10*3/uL Baso # (Auto) (0.0-0.2) X10*3/uL Abs Immat Gran (auto) (0.00-0.03) X10*3/uL Absolute Neuts (auto) (2.0-8.3) x10*3/uL Absolute Nucleated RBC (0.0-0.012) X10*3/uL Nucleated RBC % (auto) (0.0-0.2) /100WBC Sodium (135-145) mmol/L Potassium (3.3-5.1) mmol/L Chloride (96-108) mmol/L Carbon Dioxide (22-29) mmol/L Anion Gap (12-20) BUN (9-16) mg/dL Creatinine (0.5-1.4) mg/dL Estim Creat Clear Calc Estimated GFR POC Glucose (60-115) mg/dL Random Glucose (60-115) mg/dL Lactic Acid (0.5-2.0) mmol/L Lactic Acid F/U @ 2Hr (0.5-2.0) mmol/L Calcium (8.4-10.2) mg/dL Magnesium (1.6-2.6) mg/dL Total Bilirubin (0.0-1.0) mg/dL Direct Bilirubin (0.0-0.5) mg/dL AST (5-37) U/L ALT (0-40) U/L Alkaline Phosphatase (39-117) U/L Troponin I High Sens < 3.5 (<3.5-35.0) ng/L B-Natriuretic Peptide 48 (<100) pg/mL Total Protein (6.5-8.0) g/dL Albumin (3.5-5.0) g/dL Lipase (8-78) U/L Urine Color Urine Appearance Urine pH (5.0-9.0) Ur Specific [place] (1.005-1.025) Urine Protein (Neg-Trace) mg/dL Urine Glucose (UA) (Negative) mg/dL Urine Ketones (Negative) mg/dL Urine Blood (Negative) Urine Nitrite (Negative) Ur Leukocyte Esterase (Negative) Urine RBC (0-2) /HPF Urine WBC (0-5) /HPF Ur Squamous Epith Cells (0-2) /HPF Urine Bacteria (None Seen) Hyaline Casts (0-2) /LPF Influenza Type A (PCR) NEGATIVE (Negative) Influenza Type B (PCR) NEGATIVE (Negative) RSV RNA Qual (PCR) NEGATIVE (Negative) SARS-CoV-2 RNA (RT-PCR) NEGATIVE (Negative) 09/23/22 09/23/22 09/23/22 Range/Units 02:33 04:51 05:18 WBC (4.8-10.8) X10*3/uL RBC (4.60-5.80) X10*6/uL Hgb (14.0-18.0) g/dl Hct (42.0-52.0) % MCV (80.0-98.0) fL MCH (27.0-33.0) pg MCHC (31.0-36.0) g/dl RDW (11.0-16.0) % Plt Count (160-400) X10*3/uL MPV (9.4-12.4) fL Immature Gran % (Auto) (0.0-0.4) % Neut % (Auto) (45-73) % Lymph % (Auto) (20-40) % [place] % (Auto) (2-11) % Eos % (Auto) (0-4) % Baso % (Auto) (0-2) % Lymph # (Auto) (1.2-4.9) X10*3/uL [place] # (Auto) (0.1-1.2) X10*3/uL Eos # (Auto) (0.0-0.4) X10*3/uL Baso # (Auto) (0.0-0.2) X10*3/uL Abs Immat Gran (auto) (0.00-0.03) X10*3/uL Absolute Neuts (auto) (2.0-8.3) x10*3/uL Absolute Nucleated RBC (0.0-0.012) X10*3/uL Nucleated RBC % (auto) (0.0-0.2) /100WBC Sodium (135-145) mmol/L Potassium (3.3-5.1) mmol/L Chloride (96-108) mmol/L Carbon Dioxide (22-29) mmol/L Anion Gap (12-20) BUN (9-16) mg/dL Creatinine (0.5-1.4) mg/dL Estim Creat Clear Calc Estimated GFR POC Glucose 281 H (60-115) mg/dL Random Glucose (60-115) mg/dL Lactic Acid (0.5-2.0) mmol/L Lactic Acid F/U @ 2Hr 4.8 H* (0.5-2.0) mmol/L Calcium (8.4-10.2) mg/dL Magnesium (1.6-2.6) mg/dL Total Bilirubin (0.0-1.0) mg/dL Direct Bilirubin (0.0-0.5) mg/dL AST (5-37) U/L ALT (0-40) U/L Alkaline Phosphatase (39-117) U/L Troponin I High Sens (<3.5-35.0) ng/L B-Natriuretic Peptide (<100) pg/mL Total Protein (6.5-8.0) g/dL Albumin (3.5-5.0) g/dL Lipase (8-78) U/L Urine Color Yellow Urine Appearance Clear Urine pH 7.0 (5.0-9.0) Ur Specific [place] >= 1.030 H (1.005-1.025) Urine Protein 30 (1+) H (Neg-Trace) mg/dL Urine Glucose (UA) >=1000 H (Negative) mg/dL Urine Ketones 15 (Negative) mg/dL Urine Blood Negative (Negative) Urine Nitrite Negative (Negative) Ur Leukocyte Esterase Negative (Negative) Urine RBC 0-2 (0-2) /HPF Urine WBC 0-5 (0-5) /HPF Ur Squamous Epith Cells 0-2 (0-2) /HPF Urine Bacteria None Seen (None Seen) Hyaline Casts 0-2 (0-2) /LPF Influenza Type A (PCR) (Negative) Influenza Type B (PCR) (Negative) RSV RNA Qual (PCR) (Negative) SARS-CoV-2 RNA (RT-PCR) (Negative) Independent Interpretation I performed an independent interpretation of an: Plain X-Ray (No acute pathology.) and CT Scan (Abdomen and pelvis: No acute pathology.) Radiology Impression Discussion of test interpretation with radiology: I have reviewed the radiologist's reading. Discharge Plan Discharge Clinical Impression: Asthma with exacerbation, Chronic pancreatitis due to acute alcohol intoxication, Alcohol withdrawal, Hypomagnesemia, Acidosis, lactic Patient Disposition: Admitted As Inpatient
[2022-09-23 02:44] LABS: Basophils Percent Auto 0.1 % (0-2); Hemoglobin 14.1 g/dl (14.0-18.0); MANUAL DIFF FLAG NO
[2022-09-23 02:46] LABS: Hematocrit 44.4 % (42.0-52.0); Imm Gran Abs Auto 0.04 X10*3/uL (0.00-0.03); Imm Gran Pct Auto 0.5 % (0.0-0.4); Lymphocytes Absolute Auto 0.7 X10*3/uL (1.2-4.9); Lymphocytes Percent Auto 7.7 % (20-40); Mean Corpuscular HGB Conc 31.8 g/dl (31.0-36.0); Mean Corpuscular Hemoglobin 28.2 pg (27.0-33.0); Mean Corpuscular Volume 88.8 fL (80.0-98.0); Mean Platelet Volume 9.7 fL (9.4-12.4); Monocytes Absolute Auto 0.3 X10*3/uL (0.1-1.2); Monocytes Percent Auto 3.7 % (2-11); Neutrophils Absolute Auto 7.6 x10*3/uL (2.0-8.3); Platelet Count 208 X10*3/uL (160-400); Red Cell Distribution Width 14.3 % (11.0-16.0); White Blood Count 8.6 X10*3/uL (4.8-10.8)
[2022-09-23 02:52] LABS: Appearance Urine Clear; Color Urine Yellow; Glucose Urine UA >=1000 mg/dL (Negative); Leukocyte Esterase Urine Negative (Negative); Nitrite Urine Negative (Negative); Specific Gravity - Urine >= 1.030 (1.005-1.025); UMIC TRIGGER UACC YES; Urine Blood Negative (Negative); Urine Ketones 15 mg/dL (Negative); Urine Protein 30 (1+) mg/dL (Neg-Trace)
[2022-09-23 02:57] LABS: Bacteria Urine None Seen (None Seen); Hyaline Casts Urine 0-2 /LPF (0-2); RBC Urine 0-2 /HPF (0-2); Squamous Epithelial Cell Urine 0-2 /HPF (0-2); WBC Urine 0-5 /HPF (0-5)
[2022-09-23 03:03] LABS: Alanine Aminotransferase 8 U/L (0-40); Albumin Level 3.2 g/dL (3.5-5.0); Alkaline Phosphatase 86 U/L (39-117); Anion Gap 19 (12-20); Aspartate Amino Transferase 16 U/L (5-37); Bilirubin Direct 0.5 mg/dL (0.0-0.5); Blood Urea Nitrogen 3 mg/dL (9-16); Calcium 8.6 mg/dL (8.4-10.2); Carbon Dioxide 24 mmol/L (22-29); Chloride 100 mmol/L (96-108); Creatinine Clr Calc Pharmacy 126.4; Estimated Glomerular Filt Rate > 60; Glucose Random 417 mg/dL (60-115); Lactic Acid 2.4 mmol/L (0.5-2.0); Lipase 59 U/L (8-78); Magnesium 1.1 mg/dL (1.6-2.6); Potassium 3.7 mmol/L (3.3-5.1); Sodium 139 mmol/L (135-145); Total Protein 7.1 g/dL (6.5-8.0)
[2022-09-23 03:08] LABS: Troponin-I High Sensitivity < 3.5 ng/L (<3.5-35.0)
[2022-09-23 03:26] LABS: B Type Natriuretic Peptide 48 pg/mL (<100)
[2022-09-23 03:30] LABS: Influenza A PCR NEGATIVE (Negative); Influenza B PCR NEGATIVE (Negative); Resp Syncy Virus RNA Qual PCR NEGATIVE (Negative); SARS COV2 PCR INHOUSE NEGATIVE (Negative)
[2022-09-23] MEDS: Insulin Regular, Human 100 UNIT/ML 3 ML VIAL 10 UNIT IVPUSH (03:47)
[2022-09-23] MEDS: PHENobarbitaL sodium 130 MG/ML IM ONCE 208 MG IM (03:53)
--- NOTE | 2022-09-23 04:30 | PC.NURSE ---
Med req completed
[2022-09-23 04:39] LABS: Reflex Lactate? Lactic Acid Added
[2022-09-23 04:56] LABS: Glucose, Whole Blood 281 mg/dL (60-115)
[2022-09-23 05:41] LABS: ~Lactic Acid-LAB USE ONLY 4.8 mmol/L (0.5-2.0)
[2022-09-23] MEDS: Piperacillin Sodium/Tazobactam 3.375 GM in 0.9 % Sodium Chloride 50 ML IV (06:11)
[2022-09-23 07:24] LABS: Reflex Lactate? 2 Y
[2022-09-23 08:19] LABS: ~Lactic Acid-LAB USE ONLY 6.3 mmol/L (0.5-2.0)
--- NOTE | 2022-09-23 08:27 | PHA.MEDREC ---
Pharmacy Consult ? Medication Reconciliation Pharmacy has completed the medication reconciliation. Patient states they still take amlodipine 5mg and metformin 1000mg despite not filling since February 2022. Patient also states they haven't taken their medications in 2 weeks+..
[2022-09-23 08:29] LABS: Cancel Lactic Acid Canceled
--- NOTE | 2022-09-23 09:16 | P.HPHOSP_ITS ---
History of Present Illness Date of Service: 09/23/22 Chief Complaint: abdominal pain and shortness of breath The patient is a 52 yo M with a PMH as outlined below who presents to the ED with complaints of sob + abdominal pain or several days duration. The patient reports that he has chronic abdominal pain since he was diagnosed with pancreatitis about 2 months ago. He is not forthcoming about his alcohol use but reports drinking in the days leading to the ED visit. He reports he became severely short of breath overnight and his abodminal pain was unbearable hence he presented here. He reports nausea and dry heaving which began after the abdominal pain. He reports no diarrhea. He reports that his pain is diffuse and similar to prior episodes of his pancreatitis. Regarding this sob, he reports this started several days ago. He reports a productive cough. He reports active smoking. Denies sick contacts. No fevers or chills reported. ED work up reveals - CT with improving pancreatitis, but still present nontheless. Lactic acidosis, hypoMg. He has been given IVF, IV analgesics (multiple rounds of IV dilaudid), IV anti-emetics, iv mag/solu-medrol/updrafts and empiric zosyn. He has been initiated on phenobarb for alcohol withdrawal. He continues to have abdominal pain and hence will be admitted for further treatment. Review of Systems Review of Systems: negative except HPI [facility] Medical History Acute on chronic pancreatitis Alcohol dependence Chronic pancreatitis Diabetes 1.5, managed as type 2 Hypertension Family History Mother Alcohol dependence Diabetes CAD (coronary artery disease) HTN (hypertension) Father Alcohol dependence Social History Household Members: Family Housing: Apartment Do you presently have visiting nurse or other home services: No Alcohol intake: current Alcohol intake frequency: 3 or more drinks per day Alcohol type: hard liquor Patient Tobacco Use Status: Current everyday Tobacco user Tobacco use type: Cigar Cigarette Packs Per Day: 1 Cigarettes Per Day: 20.0 Smoked in Last 30 Days: Yes Use of substances other than those prescribed or required for medical reasons: No Substance Use Type: Marijuana Advance Directives: No service: No Current occupational status: unemployed Meds Allergies Allergy/AdvReac Type Severity Reaction Status Date / Time fish derived [fish] Allergy Unknown Verified 10/02/20 12:44 phenytoin [From Dilantin] Allergy rash and Verified 06/27/22 08:45 itching acetaminophen [From Vicodin] AdvReac Unknown Verified 10/02/20 12:44 hydrocodone [From Vicodin] AdvReac Unknown Verified 10/02/20 12:44 Active Medications: Current Medications Enoxaparin Sodium (Enoxaparin Sodium 40 Mg/0.4 Ml Syringe) 40 mg SUBCUT Q24H TAMMY Famotidine (Famotidine/Pf 20 Mg/2 Ml Vial) 20 mg IVPUSH BID TAMMY Hydromorphone HCl (Hydromorphone Hcl 1 Mg/Ml Syringe) 1 mg IVPUSH Q4H PRN; Protocol PRN Reason: Pain, Severe (Pain Scale 7-10) Lactated Ringer's (Lr) 1,000 mls @ 125 mls/hr IVCONT .Q8H TAMMY Magnesium Sulfate (Magnesium Sulfate/H2o) 2 gm in 50 mls @ 25 mls/hr IV ONCE ONE Stop: 09/23/22 10:22 Magnesium Sulfate (Magnesium Sulfate/H2o) 2 gm in 50 mls @ 25 mls/hr IV ONCE ONE Stop: 09/23/22 11:05 Lactated Ringer's (Lr) 1,000 mls @ 150 mls/hr IVCONT .Q6H40M [facility] Insulin Human Lispro (Insulin Lispro 100 Unit/Ml 3 Ml Vial) 0 unit SUBCUT QIDACHS TAMMY; Protocol Ondansetron HCl (Ondansetron Hcl 4 Mg/2 Ml Vial) 4 mg IVPUSH Q8H PRN PRN Reason: Nausea and Vomiting Pharmacy Consult (Consult Rx Perform Med Rec) 1 each MISCELLANE ONCE PRN PRN Reason: Consult order Pharmacy Consult (Consult Rx Etoh Phenob Im/Po) 1 each MISCELLANE ONCE PRN; Protocol PRN Reason: Consult order Phenobarbital (Phenobarbital 15 Mg Tablet) 45 mg PO BID [facility]; Protocol Stop: 09/25/22 09:01 Phenobarbital (Phenobarbital 30 Mg Tablet) 30 mg PO BID [facility]; Protocol Stop: 09/27/22 09:01 Phenobarbital (Phenobarbital 30 Mg Tablet) 30 mg PO DAILY [facility]; Protocol Stop: 09/29/22 09:01 Phenobarbital Sodium (Phenobarbital Sodium 130 Mg/Ml Vial Im Q3hx2) 160 mg IM Q3H TAMMY Stop: 09/23/22 10:01 Sodium Chloride (0.9 % Sodium Chloride Flush 3 Ml Syringe) 3 ml IVFLUSH QSHIFT [facility] Home Medications Medication Instructions Recorded Confirmed Last Taken Type albuterol sulfate 90 mcg/actuation 2 puff inhalation BID PRN 06/27/22 09/23/22 Unknown History aerosol inhaler (Ventolin HFA) Shortness Of Breath amlodipine 5 mg tablet 1 tab PO DAILY blood pressure 06/27/22 09/23/22 Unknown History atorvastatin 40 mg tablet 1 tab PO DAILY 06/27/22 09/23/22 Unknown History ferrous sulfate 325 mg (65 mg 1 tab PO DAILY 06/27/22 09/23/22 Unknown History iron) tablet (FeroSul) folic acid 1 mg tablet 1 tab PO DAILY 06/27/22 09/23/22 Unknown History magnesium oxide 400 mg (241.3 mg 1 tab PO DAILY 06/27/22 09/23/22 Unknown History magnesium) tablet metformin 1,000 mg tablet 1 tab PO DAILY diabetes mellitus 06/27/22 09/23/22 Unknown History metoprolol succinate 50 mg 1 tab PO DAILY blood pressure 06/27/22 09/23/22 Unknown History tablet,extended release 24 hr multivitamin (One Daily 1 tab PO DAILY 06/27/22 09/23/22 Unknown History Multivitamin tablet) naltrexone 50 mg tablet 1 tab PO DAILY 06/27/22 09/23/22 Unknown History thiamine HCl (vitamin B1) 100 mg 1 tab PO DAILY 06/27/22 09/23/22 Unknown History tablet (Vitamin B-1) trazodone 150 mg tablet 1 - 2 tab PO BEDTIME 09/23/22 09/23/22 Unknown History Physical Exam Vital Signs and Narrative: Vital Signs: Last Vital Signs Temp 98.3 F 09/23/22 07:32 Pulse 101 H 09/23/22 07:32 Resp 15 09/23/22 07:32 BP 155/87 H 09/23/22 07:32 Pulse Ox 92 09/23/22 07:32 O2 Del Method 09/23/22 07:32 BMI result Body Mass Index 29.0 Const: Other: Constitutional - Awake and Alert, No apparent distress Eyes - PERRLA, EOMI Cardiovascular - S1S2, RRR, No edema Respiratory - Normal lung expansion, Normal respiratory effort, No respiratory distress, CTA bilaterally Gastrointestinal - NT / ND; +BS; No rebound or guarding - No CVA tenderness Extremities - diffuse abdominal tenderness without rebound or guarding Musculoskeletal - Normal inspection, normal ROM Skin - Warm/Dry Neurological - Alert & oriented x3, No focal deficit Psychological - Appropriate affect Results Labs CBC and Chem 7: 09/23/22 02:33 09/23/22 02:33 Labs: Laboratory Results - last 24 hr 09/23/22 09/23/22 09/23/22 02:33 02:33 02:33 MCV 88.8 MCH 28.2 MCHC 31.8 RDW 14.3 Plt Count 208 D MPV 9.7 Immature Gran % (Auto) 0.5 H Neut % (Auto) 88.0 H Lymph % (Auto) 7.7 L [place] % (Auto) 3.7 Eos % (Auto) 0.0 Baso % (Auto) 0.1 Lymph # (Auto) 0.7 L [place] # (Auto) 0.3 Eos # (Auto) 0.0 Baso # (Auto) 0.0 Abs Immat Gran (auto) 0.04 H Absolute Neuts (auto) 7.6 Absolute Nucleated RBC 0.000 Nucleated RBC % (auto) 0.0 Anion Gap 19 Estim Creat Clear Calc 126.4 Estimated GFR > 60 POC Glucose Random Glucose 417 H* Lactic Acid 2.4 H* Lactic Acid F/U @ 2Hr Lactic Acid F/U @ 4Hr Calcium 8.6 Magnesium 1.1 L* Total Bilirubin 1.0 Direct Bilirubin 0.5 AST 16 ALT 8 Alkaline Phosphatase 86 Troponin I High Sens B-Natriuretic Peptide Total Protein 7.1 Albumin 3.2 L Lipase 59 Urine Color Urine Appearance Urine pH Ur Specific [place] Urine Protein Urine Glucose (UA) Urine Ketones Urine Blood Urine Nitrite Ur Leukocyte Esterase Urine RBC Urine WBC Ur Squamous Epith Cells Urine Bacteria Hyaline Casts Influenza Type A (PCR) Influenza Type B (PCR) RSV RNA Qual (PCR) SARS-CoV-2 RNA (RT-PCR) 09/23/22 09/23/22 09/23/22 02:33 02:33 02:33 MCV MCH MCHC RDW Plt Count MPV Immature Gran % (Auto) Neut % (Auto) Lymph % (Auto) [place] % (Auto) Eos % (Auto) Baso % (Auto) Lymph # (Auto) [place] # (Auto) Eos # (Auto) Baso # (Auto) Abs Immat Gran (auto) Absolute Neuts (auto) Absolute Nucleated RBC Nucleated RBC % (auto) Anion Gap Estim Creat Clear Calc Estimated GFR POC Glucose Random Glucose Lactic Acid Lactic Acid F/U @ 2Hr Lactic Acid F/U @ 4Hr Calcium Magnesium Total Bilirubin Direct Bilirubin AST ALT Alkaline Phosphatase Troponin I High Sens < 3.5 B-Natriuretic Peptide 48 Total Protein Albumin Lipase Urine Color Urine Appearance Urine pH Ur Specific [place] Urine Protein Urine Glucose (UA) Urine Ketones Urine Blood Urine Nitrite Ur Leukocyte Esterase Urine RBC Urine WBC Ur Squamous Epith Cells Urine Bacteria Hyaline Casts Influenza Type A (PCR) NEGATIVE Influenza Type B (PCR) NEGATIVE RSV RNA Qual (PCR) NEGATIVE SARS-CoV-2 RNA (RT-PCR) NEGATIVE 09/23/22 09/23/22 09/23/22 02:33 04:51 05:18 MCV MCH MCHC RDW Plt Count MPV Immature Gran % (Auto) Neut % (Auto) Lymph % (Auto) [place] % (Auto) Eos % (Auto) Baso % (Auto) Lymph # (Auto) [place] # (Auto) Eos # (Auto) Baso # (Auto) Abs Immat Gran (auto) Absolute Neuts (auto) Absolute Nucleated RBC Nucleated RBC % (auto) Anion Gap Estim Creat Clear Calc Estimated GFR POC Glucose 281 H Random Glucose Lactic Acid Lactic Acid F/U @ 2Hr 4.8 H* Lactic Acid F/U @ 4Hr Calcium Magnesium Total Bilirubin Direct Bilirubin AST ALT Alkaline Phosphatase Troponin I High Sens B-Natriuretic Peptide Total Protein Albumin Lipase Urine Color Yellow Urine Appearance Clear Urine pH 7.0 Ur Specific [place] >= 1.030 H Urine Protein 30 (1+) H Urine Glucose (UA) >=1000 H Urine Ketones 15 Urine Blood Negative Urine Nitrite Negative Ur Leukocyte Esterase Negative Urine RBC 0-2 Urine WBC 0-5 Ur Squamous Epith Cells 0-2 Urine Bacteria None Seen Hyaline Casts 0-2 Influenza Type A (PCR) Influenza Type B (PCR) RSV RNA Qual (PCR) SARS-CoV-2 RNA (RT-PCR) 09/23/22 07:44 MCV MCH MCHC RDW Plt Count MPV Immature Gran % (Auto) Neut % (Auto) Lymph % (Auto) [place] % (Auto) Eos % (Auto) Baso % (Auto) Lymph # (Auto) [place] # (Auto) Eos # (Auto) Baso # (Auto) Abs Immat Gran (auto) Absolute Neuts (auto) Absolute Nucleated RBC Nucleated RBC % (auto) Anion Gap Estim Creat Clear Calc Estimated GFR POC Glucose Random Glucose Lactic Acid Lactic Acid F/U @ 2Hr Lactic Acid F/U @ 4Hr 6.3 H* Calcium Magnesium Total Bilirubin Direct Bilirubin AST ALT Alkaline Phosphatase Troponin I High Sens B-Natriuretic Peptide Total Protein Albumin Lipase Urine Color Urine Appearance Urine pH Ur Specific [place] Urine Protein Urine Glucose (UA) Urine Ketones Urine Blood Urine Nitrite Ur Leukocyte Esterase Urine RBC Urine WBC Ur Squamous Epith Cells Urine Bacteria Hyaline Casts Influenza Type A (PCR) Influenza Type B (PCR) RSV RNA Qual (PCR) SARS-CoV-2 RNA (RT-PCR) Imaging Radiologist's Impressions: Impressions Chest X-Ray 09/23/22 01:22 IMPRESSION: Unremarkable examination. Abdomen/Pelvis CT 09/23/22 03:03 IMPRESSION: * Improving peripancreatic fat stranding, with resolution of previously seen peripancreatic fluid seen on 08/21/2022. Findings compatible with convalescent pancreatitis. * No fluid collections. * Hepatomegaly and diffuse hepatic steatosis. * Small pelvic free fluid, nonspecific. There is also mild fat stranding along the right lobe liver and within the greater omentum. Fat stranding along the liver is increased from prior. Consider hepatitis/steatohepatitis. Assessment and Plan (1) Alcohol withdrawal: Status: Acute Plan The patient is a 52 yo M with a PMH of DM, HTN, prior alcoholic pancreatitis who presents to the ED with comlpaints of shortness of breath and abdominal pain. He is diagnosed with asthma/copd exacerbation and acute alcohol pancreatitis. 1. Acute alcoholic pancreatitis 1a. Acute alcohol withdrawal pt endorses alcohol use in the days preceding ED visit. given multiple IV analgesics with minimal improvement continue IVF and IV dilaudid phenobarb per protocol alcohol cessation has been encouraged 2. Suspected alcohol gastritis IV pepcid BID clear liquids 3. Asthma/copd exacerbation improved after rx in the ED will given updrafts and prednisone for 4 more days tobacco cessation encouraged 4. HypoMg (1.) given 2g in the ED, will given 2g more IV now continue oral supplementation 5. Lactic acidosis suspected due albuterol / metformin use no definite source of infection, monitor for now; no evidence of sever sepsis at this time repeat lactate now 6. DM hold orals, use sliding scale Full Code DVT pptx, Lovenox Due to the patients pancreatitis/electrolyte abnormalities/asthma -- I anticipate a medically necessary inpatient hospitalization likely to span at least 2 midnights for treatment and monitoring of response. Time Spent With Patient Time: Total time managing care (including review of chart, d/w ED providers, examining patient and taking a history, writing admission orders and documenting findings) of this patient today 60 minutes. Quality Stroke Does the patient have a stroke diagnosis?: No VTE Prior VTE?: No VTE Risk Level:: Medical - moderate - high VTE Device Contraindication: Treatment Not Indicated VTE Drug Contraindication: N/A - Med Ordered
[2022-09-23] MEDS: Enoxaparin Sodium 40 MG/0.4 ML SYRINGE SUBCUT (09:30)
[2022-09-23] MEDS: PHENobarbitaL sodium 130 MG/ML VIAL IM Q3Hx2 160 MG IM ×2 (09:30→13:14)
[2022-09-23] MEDS: Lactated Ringers 1,000 ML 150 ML IVCONT ×3 (09:30→20:59)
[2022-09-23] MEDS: Famotidine/PF 20 MG/2 ML VIAL IVPUSH ×2 (09:31→20:58)
[2022-09-23] MEDS: Nicotine 21 MG PATCH.TD24 TRANSDERMA (09:52)
[2022-09-23] MEDS: Ferrous Sulfate 324 MG TABLET.DR PO (09:52)
[2022-09-23 10:15] LABS: Lactic Acid 4.2 mmol/L (0.5-2.0)
[2022-09-23] MEDS: Lactated Ringers 1,000 ML 125 ML IVCONT (10:50)
[2022-09-23 11:36] LABS: Reflex Lactate? Lactic Acid Added
[2022-09-23 11:56] LABS: Glucose, Whole Blood 344 mg/dL (60-115)
[2022-09-23 12:41] LABS: ~Lactic Acid-LAB USE ONLY 1.8 mmol/L (0.5-2.0)
[2022-09-23] MEDS: Insulin Lispro 100 UNIT/ML 3 ML VIAL SUBCUT ×3 (13:13→20:59)
[2022-09-23 16:48] LABS: Glucose, Whole Blood 248 mg/dL (60-115)
[2022-09-23] MEDS: HYDROmorphone HCl 1 MG/ML SYRINGE IVPUSH ×2 (17:58→22:42)
--- NOTE | 2022-09-23 19:33 | PC.NURSE ---
Patient is alert and oriented x4. Patient is able to make his needs known. Patient ambulates to the restroom independently with a steady gait. Patient reports pain in upper abdomen 8/10 at present. Patient denies nausea/vomiting. VSS.
[2022-09-23 20:47] LABS: Glucose, Whole Blood 256 mg/dL (60-115)
[2022-09-23] MEDS: PHENobarbitaL 15 MG TABLET 45 MG PO (20:58)
[2022-09-23] MEDS: 0.9 % Sodium Chloride Flush 3 ML SYRINGE IVFLUSH (20:59)
[2022-09-24 03:24] VITALS: BP 136/82; PULSE 96; RESP 18; TEMP 36.6; O2SAT 95
[2022-09-24] MEDS: traZODone HCL 50 MG TABLET 150 MG PO ×2 (03:26→23:17)
[2022-09-24] MEDS: Lactated Ringers 1,000 ML 150 ML IVCONT ×3 (03:27→18:58)
[2022-09-24] MEDS: Benzonatate 100 MG CAPSULE 200 MG PO ×2 (03:56→19:07)
[2022-09-24 07:15] LABS: Hemoglobin 11.8 g/dl (14.0-18.0); Mean Corpuscular HGB Conc 31.1 g/dl (31.0-36.0); Mean Corpuscular Hemoglobin 27.9 pg (27.0-33.0); Mean Corpuscular Volume 89.8 fL (80.0-98.0); Mean Platelet Volume 9.7 fL (9.4-12.4); Platelet Count 183 X10*3/uL (160-400); Red Blood Count 4.23 X10*6/uL (4.60-5.80); Red Cell Distribution Width 14.6 % (11.0-16.0); White Blood Count 11.9 X10*3/uL (4.8-10.8)
[2022-09-24 07:44] LABS: Anion Gap 11 (12-20); Blood Urea Nitrogen 5 mg/dL (9-16); Calcium 7.9 mg/dL (8.4-10.2); Carbon Dioxide 31 mmol/L (22-29); Chloride 100 mmol/L (96-108); Creatinine Clr Calc Pharmacy 152.5; Estimated Glomerular Filt Rate > 60; Glucose Random 87 mg/dL (60-115); Potassium 3.4 mmol/L (3.3-5.1); Sodium 139 mmol/L (135-145)
[2022-09-24 07:46] LABS: Glucose, Whole Blood 98 mg/dL (60-115)
[2022-09-24 07:47] LABS: Magnesium 1.3 mg/dL (1.6-2.6)
[2022-09-24 08:00] VITALS: BP 126/80; PULSE 98; RESP 18; TEMP 37.2; O2SAT 93
[2022-09-24] MEDS: Magnesium Sulfate/H2O 2 GM/50 ML PIGGYBACK IV (08:06)
[2022-09-24] MEDS: Famotidine/PF 20 MG/2 ML VIAL IVPUSH ×2 (08:06→20:19)
[2022-09-24] MEDS: HYDROmorphone HCl 1 MG/ML SYRINGE IVPUSH ×2 (08:14→12:06)
[2022-09-24] MEDS: Atorvastatin Calcium 40 MG TABLET PO (08:16)
[2022-09-24] MEDS: Nicotine 21 MG PATCH.TD24 TRANSDERMA (08:16)
[2022-09-24] MEDS: Magnesium Oxide 400 MG TABLET 800 MG PO ×2 (08:16→16:18)
[2022-09-24] MEDS: PHENobarbitaL 15 MG TABLET 45 MG PO ×2 (08:17→20:18)
[2022-09-24] MEDS: Enoxaparin Sodium 40 MG/0.4 ML SYRINGE SUBCUT (08:17)
[2022-09-24] MEDS: amLODIPine Besylate 5 MG TABLET PO (08:17)
[2022-09-24] MEDS: Ferrous Sulfate 324 MG TABLET.DR PO (08:17)
[2022-09-24] MEDS: Thiamine HCL 100 MG TABLET PO (08:17)
[2022-09-24] MEDS: Metoprolol Succinate ER 50 MG TAB.ER.24H PO (08:17)
[2022-09-24] MEDS: Folic Acid 1 MG TABLET PO (08:17)
[2022-09-24 11:25] LABS: Glucose, Whole Blood 94 mg/dL (60-115)
--- NOTE | 2022-09-24 13:43 | HO.PM.IMPN ---
Subjective Subjective Date of Service: 09/24/22 Interval History: cc: abd pain interval history:still with pain, wants to try crackers Physical Exam Vital Signs: Vital Signs: Last Vital Signs Temp 98.9 F 09/24/22 08:00 Pulse 98 09/24/22 08:00 Resp 18 09/24/22 08:00 BP 126/80 09/24/22 08:00 Pulse Ox 93 09/24/22 08:00 O2 Del Method 09/24/22 08:00 BMI result Body Mass Index 29.0 General: AO X 3, no acute distress Resp: CTA bilateral, no accessory muscles used CVS: S1,S2,RRR GI: soft, tender, non distended Neuro: motor grossly intact, alert Psych: appropriate affect, appropriate insight Objective Data Active Medications Amlodipine Besylate (Amlodipine Besylate 5 Mg Tablet) 5 mg PO DAILY [facility]; Protocol Last Admin: 09/24/22 08:17 Dose: 5 mg Documented By: SUNNY Atorvastatin Calcium (Atorvastatin Calcium 40 Mg Tablet) 40 mg PO DAILY [facility] Last Admin: 09/24/22 08:16 Dose: 40 mg Documented By: SUNNY Benzonatate (Benzonatate 100 Mg Capsule) 200 mg PO TID PRN PRN Reason: cough Last Admin: 09/24/22 03:56 Dose: 200 mg Documented By: LIZ Albuterol Sulfate 2.5 mg/ (Ipratropium [place] 0.5 mg) 0 mg INHALE RBID PRN PRN Reason: Shortness of Breath Enoxaparin Sodium (Enoxaparin Sodium 40 Mg/0.4 Ml Syringe) 40 mg SUBCUT Q24H [facility] Last Admin: 09/24/22 08:17 Dose: 40 mg Documented By: SUNNY Famotidine (Famotidine/Pf 20 Mg/2 Ml Vial) 20 mg IVPUSH BID [facility] Last Admin: 09/24/22 08:06 Dose: 20 mg Documented By: SUNNY Ferrous Sulfate (Ferrous Sulfate 324 Mg Tablet.Dr) 324 mg PO DAILY [facility] Last Admin: 09/24/22 08:17 Dose: 324 mg Documented By: SUNNY Folic Acid (Folic Acid 1 Mg Tablet) 1 mg PO DAILY [facility] Last Admin: 09/24/22 08:17 Dose: 1 mg Documented By: SUNNY Hydromorphone HCl (Hydromorphone Hcl 1 Mg/Ml Syringe) 1.5 mg IVPUSH Q4H PRN; Protocol PRN Reason: Pain, Severe (Pain Scale 7-10) Lactated Ringer's (Lr) 1,000 mls @ 150 mls/hr IVCONT .Q6H40M [facility] Last Admin: 09/24/22 12:12 Dose: 150 mls/hr Documented By: SUNNY Insulin Human Lispro (Insulin Lispro 100 Unit/Ml 3 Ml Vial) 0 unit SUBCUT QIDACHS [facility]; Protocol Last Admin: 09/24/22 12:03 Dose: Not Given Documented By: SUNNY Non-Admin Reason: No Insulin Coverage Magnesium Oxide (Magnesium Oxide 400 Mg Tablet) [facility] Last Admin: 09/24/22 08:16 Dose: 800 mg Documented By: SUNNY Metoprolol Succinate (Metoprolol Succinate Er 50 Mg Tab.Er.24h) 50 mg PO DAILY [facility]; Protocol Last Admin: 09/24/22 08:17 Dose: 50 mg Documented By: SUNNY Nicotine (Nicotine 21 Mg Patch.Td24) 21 mg TRANSDERMA DAILY [facility] Last Admin: 09/24/22 08:16 Dose: 21 mg Documented By: SUNNY Ondansetron HCl (Ondansetron Hcl 4 Mg/2 Ml Vial) 4 mg IVPUSH Q8H PRN PRN Reason: Nausea and Vomiting Pharmacy Consult (Consult Rx Perform Med Rec) 1 each MISCELLANE ONCE PRN PRN Reason: Consult order Pharmacy Consult (Consult Rx Etoh Phenob Im/Po) 1 each MISCELLANE ONCE PRN; Protocol PRN Reason: Consult order Phenobarbital (Phenobarbital 15 Mg Tablet) 45 mg PO BID [facility]; Protocol Stop: 09/25/22 09:01 Last Admin: 09/24/22 08:17 Dose: 45 mg Documented By: SUNNY Phenobarbital (Phenobarbital 30 Mg Tablet) 30 mg PO BID [facility]; Protocol Stop: 09/27/22 09:01 Phenobarbital (Phenobarbital 30 Mg Tablet) 30 mg PO DAILY [facility]; Protocol Stop: 09/29/22 09:01 Sodium Chloride (0.9 % Sodium Chloride Flush 3 Ml Syringe) 3 ml IVFLUSH QSHIFT [facility] Last Admin: 09/24/22 12:59 Dose: Not Given Documented By: SUNNY Non-Admin Reason: IV Running Thiamine HCl (Thiamine Hcl 100 Mg Tablet) 100 mg PO DAILY [facility] Last Admin: 09/24/22 08:17 Dose: 100 mg Documented By: SUNNY Trazodone HCl (Trazodone Hcl 50 Mg Tablet) 150 mg PO BEDTIME [facility] Last Admin: 09/24/22 03:26 Dose: 150 mg Documented By: MALCOLMQC Labs CBC & Chem 7: 09/24/22 05:52 09/24/22 05:52 Labs: Laboratory Results - last 24 hr 09/23/22 09/23/22 09/24/22 16:43 20:40 05:52 MCV 89.8 MCH 27.9 MCHC 31.1 RDW 14.6 Plt Count 183 MPV 9.7 Absolute Nucleated RBC 0.000 Nucleated RBC % (auto) 0.0 Anion Gap Estim Creat Clear Calc Estimated GFR POC Glucose 248 H 256 H Random Glucose Calcium Magnesium 09/24/22 09/24/22 09/24/22 05:52 05:52 07:41 MCV MCH MCHC RDW Plt Count MPV Absolute Nucleated RBC Nucleated RBC % (auto) Anion Gap 11 L Estim Creat Clear Calc 152.5 Estimated GFR > 60 POC Glucose 98 Random Glucose 87 Calcium 7.9 L D Magnesium 1.3 L* 09/24/22 11:16 MCV MCH MCHC RDW Plt Count MPV Absolute Nucleated RBC Nucleated RBC % (auto) Anion Gap Estim Creat Clear Calc Estimated GFR POC Glucose 94 Random Glucose Calcium Magnesium Microbiology Microbiology Results: Microbiology 09/23/22 02:32 Blood Culture - Preliminary Blood - Venous No growth after 24 hours. 09/23/22 02:32 Blood Culture - Preliminary Blood - Venous No growth after 24 hours. Assessment and Plan (1) Alcohol withdrawal: Status: Resolved (2) Acute on chronic pancreatitis: Status: Resolved (3) Alcohol dependence: Status: Inactive Plan 52 yo M with a PMH of DM, HTN, prior alcoholic pancreatitis who presents to the ED with comlpaints of shortness of breath and abdominal pain. He is diagnosed with asthma/copd exacerbation and acute alcohol pancreatitis. Acute alcoholic pancreatitis IVF, pain control, wants to try crackers alcohol dependence with withdrawal pheonabrb, monitor ciwa Suspected alcohol gastritis IV pepcid BID mild intermittent Asthma/copd exacerbation improved after rx in the ED updrafts and prednisone for 3 more days tobacco cessation encouraged HypoMg replace and monitor Lactic acidosis suspected due albuterol / metformin use no definite source of infection, monitor for now; no evidence of sever sepsis at this time DM hold orals, use sliding scale Full Code DVT pptx, Lovenox reason for continued hospitalization: awaiting tolerance of po Time Spent With Patient Time: Total time managing care of this patient today ____ minutes. Quality Stroke Does the patient have a stroke diagnosis?: No VTE Prior VTE?: No VTE Risk Level:: Medical - moderate - high VTE Device Contraindication: Treatment Not Indicated VTE Drug Contraindication: N/A - Med Ordered
[2022-09-24 13:47] VITALS: PULSE 105; RESP 16; O2SAT 96
--- NOTE | 2022-09-24 14:40 | MHC.CM.PN ---
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 HE DOES AGREE TO PCP NAME, ADDRESS, BIRTHDATE, AND COVID VACCINE STATUS. IMM SIGNED AFTER EXPLANATION OF BENEFITS. IMM / IN CHART PLAN IS LIKELY HOME - SELF CARE
[2022-09-24 15:24] VITALS: BP 118/73; PULSE 94; RESP 18; TEMP 36.1; O2SAT 95
[2022-09-24 15:40] LABS: Glucose, Whole Blood 204 mg/dL (60-115)
[2022-09-24] MEDS: Insulin Lispro 100 UNIT/ML 3 ML VIAL SUBCUT ×2 (16:18→20:18)
[2022-09-24] MEDS: HYDROmorphone HCl 1 MG/ML SYRINGE 1.5 MG IVPUSH ×2 (16:19→20:39)
[2022-09-24 19:12] VITALS: BP 120/77; PULSE 84; RESP 18; TEMP 36.1; O2SAT 97
[2022-09-24 19:56] LABS: Glucose, Whole Blood 180 mg/dL (60-115)
[2022-09-24] MEDS: 0.9 % Sodium Chloride Flush 3 ML SYRINGE IVFLUSH (20:19)
[2022-09-25] MEDS: Lactated Ringers 1,000 ML 150 ML IVCONT ×2 (01:09→08:44)
[2022-09-25] MEDS: HYDROmorphone HCl 1 MG/ML SYRINGE 1.5 MG IVPUSH ×5 (02:13→21:51)
[2022-09-25] MEDS: ondansetron HCL 4 MG/2 ML VIAL IVPUSH (02:17)
[2022-09-25 03:37] VITALS: BP 143/78; PULSE 90; RESP 18; TEMP 36.9; O2SAT 93
--- NOTE | 2022-09-25 05:48 | PC.NURSE ---
around 0200 pt c/o 06/30 pain, did not want to take any pain medication, stated that this pain was worse than when he came in to the ED and requested that a doctor come see him. Dr Blanco notified, he came to see pt, examined his abdomen, suggested he try to rest his bowels for the rest of the night and not eat or drink anything and suggested to take pain medication now. PRN IV dilaudid administered.
[2022-09-25] MEDS: Famotidine/PF 20 MG/2 ML VIAL IVPUSH ×2 (07:09→20:19)
[2022-09-25] MEDS: Nicotine 21 MG PATCH.TD24 TRANSDERMA (07:13)
[2022-09-25 07:14] LABS: Hematocrit 40.2 % (42.0-52.0); Hemoglobin 12.5 g/dl (14.0-18.0); Mean Corpuscular HGB Conc 31.1 g/dl (31.0-36.0); Mean Corpuscular Hemoglobin 28.2 pg (27.0-33.0); Mean Corpuscular Volume 90.5 fL (80.0-98.0); Mean Platelet Volume 9.7 fL (9.4-12.4); Platelet Count 214 X10*3/uL (160-400); Red Blood Count 4.44 X10*6/uL (4.60-5.80); Red Cell Distribution Width 14.4 % (11.0-16.0); White Blood Count 8.6 X10*3/uL (4.8-10.8)
[2022-09-25] MEDS: amLODIPine Besylate 5 MG TABLET PO (07:14)
[2022-09-25] MEDS: Atorvastatin Calcium 40 MG TABLET PO (07:14)
[2022-09-25] MEDS: Ferrous Sulfate 324 MG TABLET.DR PO (07:14)
[2022-09-25] MEDS: Thiamine HCL 100 MG TABLET PO (07:14)
[2022-09-25] MEDS: Metoprolol Succinate ER 50 MG TAB.ER.24H PO (07:15)
[2022-09-25] MEDS: Magnesium Oxide 400 MG TABLET 800 MG PO ×2 (07:15→16:43)
[2022-09-25] MEDS: PHENobarbitaL 15 MG TABLET 45 MG PO (07:15)
[2022-09-25] MEDS: Enoxaparin Sodium 40 MG/0.4 ML SYRINGE SUBCUT (07:16)
[2022-09-25] MEDS: Insulin Lispro 100 UNIT/ML 3 ML VIAL SUBCUT ×2 (07:22→11:56)
[2022-09-25 07:27] LABS: Glucose, Whole Blood 226 mg/dL (60-115)
[2022-09-25 08:00] VITALS: BP 157/88; PULSE 84; RESP 18; TEMP 36.3; O2SAT 94
[2022-09-25 08:07] LABS: Anion Gap 15 (12-20); Blood Urea Nitrogen 6 mg/dL (9-16); Calcium 7.9 mg/dL (8.4-10.2); Carbon Dioxide 29 mmol/L (22-29); Chloride 94 mmol/L (96-108); Creatinine Clr Calc Pharmacy 140.4; Estimated Glomerular Filt Rate > 60; Glucose Fasting 237 mg/dL (60-99); Potassium 3.4 mmol/L (3.3-5.1); Sodium 135 mmol/L (135-145)
[2022-09-25] MEDS: Folic Acid 1 MG TABLET PO (10:02)
--- NOTE | 2022-09-25 10:06 | P.PNIM_ITS ---
Subjective Subjective Date of Service: 09/25/22 Interval History: cc: abd pain interval history:still with pain, did not tolerate solids Physical Exam Vital Signs: Vital Signs: Last Vital Signs Temp 97.4 F 09/25/22 08:00 Pulse 84 09/25/22 08:00 Resp 18 09/25/22 08:00 BP 157/88 H 09/25/22 08:00 Pulse Ox 94 09/25/22 08:00 O2 Del Method 09/25/22 08:00 BMI result Body Mass Index 29.0 General: AO X 3, no acute distress Resp: CTA bilateral, no accessory muscles used CVS: S1,S2,RRR GI: soft, tender, non distended Neuro: motor grossly intact, alert Psych: appropriate affect, appropriate insight Objective Data Active Medications Amlodipine Besylate (Amlodipine Besylate 5 Mg Tablet) 5 mg PO DAILY [facility]; Protocol Last Admin: 09/25/22 07:14 Dose: 5 mg Documented By: SUNNY Atorvastatin Calcium (Atorvastatin Calcium 40 Mg Tablet) 40 mg PO DAILY [facility] Last Admin: 09/25/22 07:14 Dose: 40 mg Documented By: SUNNY Benzonatate (Benzonatate 100 Mg Capsule) 200 mg PO TID PRN PRN Reason: cough Last Admin: 09/24/22 19:07 Dose: 200 mg Documented By: LIZ Albuterol Sulfate 2.5 mg/ (Ipratropium [place] 0.5 mg) 0 mg INHALE RBID PRN PRN Reason: Shortness of Breath Last Admin: 09/24/22 13:46 Dose: 2.5 each Documented By: ANGELA Enoxaparin Sodium (Enoxaparin Sodium 40 Mg/0.4 Ml Syringe) 40 mg SUBCUT Q24H [facility] Last Admin: 09/25/22 07:16 Dose: 40 mg Documented By: SUNNY Famotidine (Famotidine/Pf 20 Mg/2 Ml Vial) 20 mg IVPUSH BID [facility] Last Admin: 09/25/22 07:09 Dose: 20 mg Documented By: SUNNY Ferrous Sulfate (Ferrous Sulfate 324 Mg Tablet.) 324 mg PO DAILY [facility] Last Admin: 09/25/22 07:14 Dose: 324 mg Documented By: SUNNY Folic Acid (Folic Acid 1 Mg Tablet) 1 mg PO DAILY [facility] Last Admin: 09/25/22 10:02 Dose: 1 mg Documented By: SUNNY Hydromorphone HCl (Hydromorphone Hcl 1 Mg/Ml Syringe) 1.5 mg IVPUSH Q4H PRN; Protocol PRN Reason: Pain, Severe (Pain Scale 7-10) Last Admin: 09/25/22 07:09 Dose: 1.5 mg Documented By: SUNNY Insulin Human Lispro (Insulin Lispro 100 Unit/Ml 3 Ml Vial) 0 unit SUBCUT QIDACHS [facility]; Protocol Last Admin: 09/25/22 07:22 Dose: 4 unit Documented By: SUNNY Magnesium Oxide (Magnesium Oxide 400 Mg Tablet) 800 mg PO BIDPC [facility] Last Admin: 09/25/22 07:15 Dose: 800 mg Documented By: SUNNY Metoprolol Succinate (Metoprolol Succinate Er 50 Mg Tab.Er.24h) 50 mg PO DAILY [facility]; Protocol Last Admin: 09/25/22 07:15 Dose: 50 mg Documented By: SUNNY Nicotine (Nicotine 21 Mg Patch.Td24) 21 mg TRANSDERMA DAILY [facility] Last Admin: 09/25/22 07:13 Dose: 21 mg Documented By: SUNNY Ondansetron HCl (Ondansetron Hcl 4 Mg/2 Ml Vial) 4 mg IVPUSH Q8H PRN PRN Reason: Nausea and Vomiting Last Admin: 09/25/22 02:17 Dose: 4 mg Documented By: LIZ Pharmacy Consult (Consult Rx Perform Med Rec) 1 each MISCELLANE ONCE PRN PRN Reason: Consult order Pharmacy Consult (Consult Rx Etoh Phenob Im/Po) 1 each MISCELLANE ONCE PRN; Protocol PRN Reason: Consult order Phenobarbital (Phenobarbital 30 Mg Tablet) 30 mg PO BID [facility]; Protocol Stop: 09/27/22 09:01 Phenobarbital (Phenobarbital 30 Mg Tablet) 30 mg PO DAILY [facility]; Protocol Stop: 09/29/22 09:01 Sodium Chloride (0.9 % Sodium Chloride Flush 3 Ml Syringe) 3 ml IVFLUSH QSHIFT [facility] Last Admin: 09/25/22 07:15 Dose: Not Given Documented By: SUNNY Non-Admin Reason: IV Running Thiamine HCl (Thiamine Hcl 100 Mg Tablet) 100 mg PO DAILY [facility] Last Admin: 09/25/22 07:14 Dose: 100 mg Documented By: SUNNY Trazodone HCl (Trazodone Hcl 50 Mg Tablet) 150 mg PO BEDTIME [facility] Last Admin: 09/24/22 23:17 Dose: 150 mg Documented By: LIZ Labs CBC & Chem 7: 09/25/22 06:43 09/25/22 06:43 Labs: Laboratory Results - last 24 hr 09/24/22 09/24/22 09/24/22 11:16 15:26 19:50 MCV MCH MCHC RDW Plt Count MPV Absolute Nucleated RBC Nucleated RBC % (auto) Anion Gap Estim Creat Clear Calc Estimated GFR POC Glucose 94 204 H 180 H Fasting Glucose Calcium 09/25/22 09/25/22 09/25/22 06:43 06:43 07:03 MCV 90.5 MCH 28.2 MCHC 31.1 RDW 14.4 Plt Count 214 MPV 9.7 Absolute Nucleated RBC 0.000 Nucleated RBC % (auto) 0.0 Anion Gap 15 Estim Creat Clear Calc 140.4 Estimated GFR > 60 POC Glucose 226 H Fasting Glucose 237 H Calcium 7.9 L Microbiology Microbiology Results: Microbiology 09/23/22 02:32 Blood Culture - Preliminary Blood - Venous No growth after 48 hours. 09/23/22 02:32 Blood Culture - Preliminary Blood - Venous No growth after 48 hours. Assessment and Plan (1) Alcohol withdrawal: Status: Resolved (2) Acute on chronic pancreatitis: Status: Resolved (3) Alcohol dependence: Status: Inactive Plan 52 yo M with a PMH of DM, HTN, prior alcoholic pancreatitis who presents to the ED with comlpaints of shortness of breath and abdominal pain. He is diagnosed with asthma/copd exacerbation and acute alcohol pancreatitis. Acute alcoholic pancreatitis IVF, pain control, did not tolerate solids, deescalated to clears alcohol dependence with withdrawal pheonabrb, monitor ciwa Suspected alcohol gastritis IV pepcid BID mild intermittent Asthma/copd exacerbation improved after rx in the ED updrafts and prednisone for 2 more days tobacco cessation encouraged HypoMg replace and monitor Lactic acidosis suspected due albuterol / metformin use no definite source of infection, monitor for now; no evidence of sever sepsis at this time DM hold orals, use sliding scale Full Code DVT pptx, Lovenox reason for continued hospitalization: awaiting tolerance of po Time Spent With Patient Time: Total time managing care of this patient today ____ minutes. Quality Stroke Does the patient have a stroke diagnosis?: No VTE Prior VTE?: No VTE Risk Level:: Medical - moderate - high VTE Device Contraindication: Treatment Not Indicated VTE Drug Contraindication: N/A - Med Ordered
[2022-09-25 11:12] LABS: Glucose, Whole Blood 179 mg/dL (60-115)
--- NOTE | 2022-09-25 14:33 | P.CDIC_ITS ---
CDI Concurrent Query Documentation Clarification: PHYSICIAN'S DOCUMENTATION REQUEST Date of Query: 09/25/22 1433 Patient Name: Dontrell Azevedo Admit Date: 09/23/22 Dear Doctor, A review of the medical record indicates additional documentation may be needed. Please review below and update the documentation accordingly. Clinical Indicators: Is there a diagnosis that correlates with the findings below: Risk Factors/Clinical Indicators/Treatments Labs: POCs 09/24: 204 1: 226 Fasting glucose 09/25: 237 Home medications: Metformin 1,000 mg Please clarify the following regarding Diabetes Mellitus (DM): * Hyperglycemia * No complications of DM * Other complication ? please specify * Unable to determine Use of terms such as suspected, likely, concern for, or probable (associated with a specific diagnosis that is being evaluated, monitored, or treated as if it exists) are acceptable and can be coded in the inpatient setting, when documented at the time of discharge. Thank you, Yoly Thompson MS, RN, CCRN Extension: [phone] Please use your independent medical judgment in providing your response. THIS QUERY IS PART OF THE PERMANENT MEDICAL RECORD Provider Response: Other Other Diagnosis: DM with hyperglycemia
[2022-09-25 15:04] VITALS: BP 127/84; PULSE 81; RESP 18; TEMP 36.2; O2SAT 91
[2022-09-25 16:18] LABS: Glucose, Whole Blood 149 mg/dL (60-115)
[2022-09-25 19:10] VITALS: BP 148/84; PULSE 85; RESP 17; TEMP 36.4; O2SAT 92
[2022-09-25 19:51] VITALS: PULSE 94; RESP 18; O2SAT 93
[2022-09-25 20:14] LABS: Glucose, Whole Blood 147 mg/dL (60-115)
[2022-09-25] MEDS: 0.9 % Sodium Chloride Flush 3 ML SYRINGE IVFLUSH (20:19)
[2022-09-25] MEDS: PHENobarbitaL 30 MG TABLET PO (20:19)
[2022-09-25] MEDS: traZODone HCL 50 MG TABLET 150 MG PO (21:53)
[2022-09-26] MEDS: HYDROmorphone HCl 1 MG/ML SYRINGE 1.5 MG IVPUSH ×5 (03:40→21:41)
[2022-09-26] MEDS: traZODone HCL 50 MG TABLET 150 MG PO ×2 (03:58→23:04)
[2022-09-26 04:00] VITALS: BP 126/55; PULSE 87; RESP 18; TEMP 36.7; O2SAT 93
[2022-09-26 06:35] LABS: Hematocrit 36.2 % (42.0-52.0); Hemoglobin 11.5 g/dl (14.0-18.0); Mean Corpuscular HGB Conc 31.8 g/dl (31.0-36.0); Mean Corpuscular Hemoglobin 28.5 pg (27.0-33.0); Mean Corpuscular Volume 89.6 fL (80.0-98.0); Mean Platelet Volume 9.5 fL (9.4-12.4); Platelet Count 210 X10*3/uL (160-400); Red Blood Count 4.04 X10*6/uL (4.60-5.80); White Blood Count 5.2 X10*3/uL (4.8-10.8)
[2022-09-26 07:14] LABS: Anion Gap 16 (12-20); Blood Urea Nitrogen 6 mg/dL (9-16); Calcium 7.5 mg/dL (8.4-10.2); Carbon Dioxide 26 mmol/L (22-29); Chloride 96 mmol/L (96-108); Creatinine Clr Calc Pharmacy 152.5; Estimated Glomerular Filt Rate > 60; Glucose Fasting 193 mg/dL (60-99); Potassium 3.5 mmol/L (3.3-5.1); Sodium 134 mmol/L (135-145)
[2022-09-26 07:26] VITALS: BP 139/90; PULSE 96; RESP 16; TEMP 36.6; O2SAT 94
[2022-09-26 07:34] LABS: Magnesium 1.3 mg/dL (1.6-2.6)
[2022-09-26 07:45] LABS: Glucose, Whole Blood 222 mg/dL (60-115)
[2022-09-26] MEDS: Famotidine/PF 20 MG/2 ML VIAL IVPUSH ×2 (08:25→21:42)
[2022-09-26] MEDS: Folic Acid 1 MG TABLET PO (08:25)
[2022-09-26] MEDS: Thiamine HCL 100 MG TABLET PO (08:25)
[2022-09-26] MEDS: Magnesium Sulfate/H2O 2 GM/50 ML PIGGYBACK IV (08:26)
[2022-09-26] MEDS: Potassium Chloride ER 20 MEQ TAB.ER.PRT 40 MEQ PO (08:26)
[2022-09-26] MEDS: amLODIPine Besylate 5 MG TABLET PO (08:26)
[2022-09-26] MEDS: Metoprolol Succinate ER 50 MG TAB.ER.24H PO (08:26)
[2022-09-26] MEDS: Insulin Lispro 100 UNIT/ML 3 ML VIAL SUBCUT ×2 (08:27→21:43)
[2022-09-26] MEDS: Ferrous Sulfate 324 MG TABLET.DR PO (08:27)
[2022-09-26] MEDS: Atorvastatin Calcium 40 MG TABLET PO (08:27)
[2022-09-26] MEDS: Enoxaparin Sodium 40 MG/0.4 ML SYRINGE SUBCUT (08:28)
[2022-09-26] MEDS: PHENobarbitaL 30 MG TABLET PO ×2 (08:28→21:42)
[2022-09-26] MEDS: Nicotine 21 MG PATCH.TD24 TRANSDERMA (08:29)
[2022-09-26] MEDS: 0.9 % Sodium Chloride Flush 3 ML SYRINGE IVFLUSH ×2 (08:32→21:43)
[2022-09-26] MEDS: Magnesium Oxide 400 MG TABLET 800 MG PO ×2 (08:34→17:17)
[2022-09-26 08:53] VITALS: PULSE 88; RESP 18; O2SAT 96
[2022-09-26 08:55] VITALS: PULSE 88; RESP 18
--- NOTE | 2022-09-26 09:53 | P.PNIM_ITS ---
Subjective Subjective Date of Service: 09/26/22 Interval History: cc: abd pain interval history:still with pain Physical Exam Vital Signs: Vital Signs: Last Vital Signs Temp 97.9 F 09/26/22 07:26 Pulse 88 09/26/22 08:55 Resp 18 09/26/22 08:55 BP 139/90 H 09/26/22 07:26 Pulse Ox 94 09/26/22 07:26 O2 Del Method 09/26/22 07:26 BMI result Body Mass Index 29.0 General: AO X 3, no acute distress Resp: CTA bilateral, no accessory muscles used CVS: S1,S2,RRR GI: soft, tender, non distended Neuro: motor grossly intact, alert Psych: appropriate affect, appropriate insight Objective Data Active Medications Amlodipine Besylate (Amlodipine Besylate 5 Mg Tablet) 5 mg PO DAILY [facility]; Protocol Last Admin: 09/26/22 08:26 Dose: 5 mg Documented By: JOVANNY Atorvastatin Calcium (Atorvastatin Calcium 40 Mg Tablet) 40 mg PO DAILY [facility] Last Admin: 09/26/22 08:27 Dose: 40 mg Documented By: JOVANNY Benzonatate (Benzonatate 100 Mg Capsule) 200 mg PO TID PRN PRN Reason: cough Last Admin: 09/24/22 19:07 Dose: 200 mg Documented By: LIZ Albuterol Sulfate 2.5 mg/ (Ipratropium [place] 0.5 mg) 0 mg INHALE RBID PRN PRN Reason: Shortness of Breath Last Admin: 09/26/22 08:52 Dose: 0.5 each Documented By: VERNON Enoxaparin Sodium (Enoxaparin Sodium 40 Mg/0.4 Ml Syringe) 40 mg SUBCUT Q24H [facility] Last Admin: 09/26/22 08:28 Dose: 40 mg Documented By: JOVANNY Famotidine (Famotidine/Pf 20 Mg/2 Ml Vial) 20 mg IVPUSH BID [facility] Last Admin: 09/26/22 08:25 Dose: 20 mg Documented By: JOVANNY Ferrous Sulfate (Ferrous Sulfate 324 Mg Tablet.) 324 mg PO DAILY [facility] Last Admin: 09/26/22 08:27 Dose: 324 mg Documented By: JOVANNY Folic Acid (Folic Acid 1 Mg Tablet) 1 mg PO DAILY [facility] Last Admin: 09/26/22 08:25 Dose: 1 mg Documented By: JOVANNY Hydromorphone HCl (Hydromorphone Hcl 1 Mg/Ml Syringe) 1.5 mg IVPUSH Q4H PRN; Protocol PRN Reason: Pain, Severe (Pain Scale 7-10) Last Admin: 09/26/22 08:36 Dose: 1.5 mg Documented By: JOVANNY Insulin Human Lispro (Insulin Lispro 100 Unit/Ml 3 Ml Vial) 0 unit SUBCUT QIDACHS [facility]; Protocol Last Admin: 09/26/22 08:27 Dose: 4 unit Documented By: JOVANNY [facility] Oxide (Magnesium Oxide 400 Mg Tablet) [facility] Last Admin: 09/26/22 08:34 Dose: 800 mg Documented By: JOVANNY Metoprolol Succinate (Metoprolol Succinate Er 50 Mg Tab.Er.24h) 50 mg PO DAILY [facility]; Protocol Last Admin: 09/26/22 08:26 Dose: 50 mg Documented By: JOVANNY Nicotine (Nicotine 21 Mg Patch.Td24) 21 mg TRANSDERMA DAILY [facility] Last Admin: 09/26/22 08:29 Dose: 21 mg Documented By: JOVANNY Ondansetron HCl (Ondansetron Hcl 4 Mg/2 Ml Vial) 4 mg IVPUSH Q8H PRN PRN Reason: Nausea and Vomiting Last Admin: 09/25/22 02:17 Dose: 4 mg Documented By: LIZ Pharmacy Consult (Consult Rx Perform Med Rec) 1 each MISCELLANE ONCE PRN PRN Reason: Consult order Pharmacy Consult (Consult Rx Etoh Phenob Im/Po) 1 each MISCELLANE ONCE PRN; Protocol PRN Reason: Consult order Phenobarbital (Phenobarbital 30 Mg Tablet) 30 mg PO BID [facility]; Protocol Stop: 09/27/22 09:01 Last Admin: 09/26/22 08:28 Dose: 30 mg Documented By: JOVANNY Phenobarbital (Phenobarbital 30 Mg Tablet) 30 mg PO DAILY [facility]; Protocol Stop: 09/29/22 09:01 Sodium Chloride (0.9 % Sodium Chloride Flush 3 Ml Syringe) 3 ml IVFLUSH [facility] Last Admin: 09/26/22 08:32 Dose: 3 ml Documented By: JOVANNY Thiamine HCl (Thiamine Hcl 100 Mg Tablet) 100 mg PO DAILY [facility] Last Admin: 09/26/22 08:25 Dose: 100 mg Documented By: JOVANNY Trazodone HCl (Trazodone Hcl 50 Mg Tablet) 150 mg PO BEDTIME [facility] Last Admin: 09/25/22 21:53 Dose: 150 mg Documented By: LIZ Labs 09/26/22 06:06 09/26/22 06:05 Labs: Laboratory Results - last 24 hr 09/25/22 09/25/22 09/25/22 11:00 16:08 20:05 MCV MCH MCHC RDW Plt Count MPV Absolute Nucleated RBC Nucleated RBC % (auto) Anion Gap Estim Creat Clear Calc Estimated GFR POC Glucose 179 H 149 H 147 H Fasting Glucose Calcium Magnesium 09/26/22 09/26/22 09/26/22 06:05 06:06 07:29 MCV 89.6 MCH 28.5 MCHC 31.8 RDW 14.0 Plt Count 210 MPV 9.5 Absolute Nucleated RBC 0.000 Nucleated RBC % (auto) 0.0 Anion Gap 16 Estim Creat Clear Calc 152.5 Estimated GFR > 60 POC Glucose 222 H Fasting Glucose 193 H Calcium 7.5 L Magnesium 1.3 L* Assessment and Plan (1) Alcohol withdrawal: Status: Resolved (2) Acute on chronic pancreatitis: Status: Resolved (3) Alcohol dependence: Status: Inactive Plan 52 yo M with a PMH of DM, HTN, prior alcoholic pancreatitis who presents to the ED with comlpaints of shortness of breath and abdominal pain. He is diagnosed with asthma/copd exacerbation and acute alcohol pancreatitis. Acute alcoholic pancreatitis IVF, pain control, still with pain not interested in solid alcohol dependence with withdrawal phenobarb, monitor ciwa Suspected alcohol gastritis IV pepcid BID mild intermittent Asthma/copd exacerbation improved after rx in the ED updrafts and prednisone for 1 more days tobacco cessation encouraged HypoMg replace and monitor Lactic acidosis suspected due albuterol / metformin use no definite source of infection, monitor for now; no evidence of severe sepsis at this time DM hold orals, use sliding scale Full Code DVT pptx, Lovenox reason for continued hospitalization: awaiting tolerance of po Time Spent With Patient Time: Total time managing care of this patient today ____ minutes. Quality Stroke Does the patient have a stroke diagnosis?: No VTE Prior VTE?: No VTE Risk Level:: Medical - moderate - high VTE Device Contraindication: Treatment Not Indicated VTE Drug Contraindication: N/A - Med Ordered
[2022-09-26] MEDS: Lactated Ringers 1,000 ML 100 ML IVCONT ×2 (10:03→19:21)
[2022-09-26 10:59] LABS: Glucose, Whole Blood 144 mg/dL (60-115)
[2022-09-26 15:32] VITALS: BP 124/77; PULSE 90; RESP 18; TEMP 37.1; O2SAT 92
[2022-09-26 16:01] LABS: Glucose, Whole Blood 148 mg/dL (60-115)
[2022-09-26 19:14] VITALS: BP 145/85; PULSE 91; RESP 18; TEMP 36.5; O2SAT 93
[2022-09-26] MEDS: ondansetron HCL 4 MG/2 ML VIAL IVPUSH (19:28)
[2022-09-26 19:47] LABS: Glucose, Whole Blood 175 mg/dL (60-115)
[2022-09-27 04:00] VITALS: BP 141/79; PULSE 96; RESP 17; TEMP 36.2; O2SAT 92
[2022-09-27] MEDS: HYDROmorphone HCl 1 MG/ML SYRINGE 1.5 MG IVPUSH ×4 (04:20→20:05)
[2022-09-27] MEDS: Lactated Ringers 1,000 ML 100 ML IVCONT ×2 (04:23→14:44)
[2022-09-27 06:23] LABS: Hematocrit 34.3 % (42.0-52.0); Hemoglobin 10.8 g/dl (14.0-18.0); Mean Corpuscular HGB Conc 31.5 g/dl (31.0-36.0); Mean Corpuscular Volume 88.9 fL (80.0-98.0); Mean Platelet Volume 9.6 fL (9.4-12.4); Platelet Count 239 X10*3/uL (160-400); Red Blood Count 3.86 X10*6/uL (4.60-5.80); Red Cell Distribution Width 14.2 % (11.0-16.0); White Blood Count 4.2 X10*3/uL (4.8-10.8)
[2022-09-27 06:43] LABS: Anion Gap 16 (12-20); Blood Urea Nitrogen 5 mg/dL (9-16); Calcium 7.3 mg/dL (8.4-10.2); Carbon Dioxide 25 mmol/L (22-29); Chloride 99 mmol/L (96-108); Creatinine Clr Calc Pharmacy 163.8; Estimated Glomerular Filt Rate > 60; Glucose Fasting 152 mg/dL (60-99); Magnesium 1.4 mg/dL (1.6-2.6); Potassium 3.6 mmol/L (3.3-5.1); Sodium 136 mmol/L (135-145)
[2022-09-27 07:50] LABS: Glucose, Whole Blood 159 mg/dL (60-115)
[2022-09-27 08:00] VITALS: BP 131/63; PULSE 98; RESP 18; TEMP 36.7; O2SAT 92
[2022-09-27] MEDS: Insulin Lispro 100 UNIT/ML 3 ML VIAL SUBCUT (08:25)
[2022-09-27] MEDS: Magnesium Sulfate/H2O 2 GM/50 ML PIGGYBACK IV (08:25)
[2022-09-27] MEDS: amLODIPine Besylate 5 MG TABLET PO (08:32)
[2022-09-27] MEDS: Magnesium Oxide 400 MG TABLET 800 MG PO ×2 (08:32→17:44)
[2022-09-27] MEDS: Metoprolol Succinate ER 50 MG TAB.ER.24H PO (08:33)
[2022-09-27] MEDS: Atorvastatin Calcium 40 MG TABLET PO (08:33)
[2022-09-27] MEDS: Folic Acid 1 MG TABLET PO (08:33)
[2022-09-27] MEDS: Ferrous Sulfate 324 MG TABLET.DR PO (08:33)
[2022-09-27] MEDS: Thiamine HCL 100 MG TABLET PO (08:33)
[2022-09-27] MEDS: PHENobarbitaL 30 MG TABLET PO (08:33)
[2022-09-27] MEDS: Famotidine/PF 20 MG/2 ML VIAL IVPUSH ×2 (08:33→22:34)
[2022-09-27] MEDS: Nicotine 21 MG PATCH.TD24 TRANSDERMA (08:33)
[2022-09-27] MEDS: 0.9 % Sodium Chloride Flush 3 ML SYRINGE IVFLUSH (08:34)
[2022-09-27] MEDS: Enoxaparin Sodium 40 MG/0.4 ML SYRINGE SUBCUT (08:34)
--- NOTE | 2022-09-27 09:28 | HO.PM.IMPN ---
Subjective Subjective Date of Service: 09/27/22 Interval History: cc: abd pain interval history:still with pain Physical Exam Vital Signs: Vital Signs: Last Vital Signs Temp 98.1 F 09/27/22 08:00 Pulse 98 09/27/22 08:00 Resp 18 09/27/22 08:00 BP 131/63 09/27/22 08:00 Pulse Ox 92 09/27/22 08:00 O2 Del Method 09/27/22 08:00 BMI result Body Mass Index 29.0 General: AO X 3, no acute distress Resp: CTA bilateral, no accessory muscles used CVS: S1,S2,RRR GI: soft, tender, non distended Neuro: motor grossly intact, alert Psych: appropriate affect, appropriate insight Objective Data Active Medications Amlodipine Besylate (Amlodipine Besylate 5 Mg Tablet) 5 mg PO DAILY [facility]; Protocol Last Admin: 09/27/22 08:32 Dose: 5 mg Documented By: HAMLET Atorvastatin Calcium (Atorvastatin Calcium 40 Mg Tablet) 40 mg PO DAILY [facility] Last Admin: 09/27/22 08:33 Dose: 40 mg Documented By: HAMLET Benzonatate (Benzonatate 100 Mg Capsule) 200 mg PO TID PRN PRN Reason: cough Last Admin: 09/24/22 19:07 Dose: 200 mg Documented By: LIZ Albuterol Sulfate 2.5 mg/ (Ipratropium [place] 0.5 mg) 0 mg INHALE RBID PRN PRN Reason: Shortness of Breath Last Admin: 09/26/22 08:52 Dose: 0.5 each Documented By: VERNON Enoxaparin Sodium (Enoxaparin Sodium 40 Mg/0.4 Ml Syringe) 40 mg SUBCUT Q24H [facility] Last Admin: 09/27/22 08:34 Dose: 40 mg Documented By: HAMLET Famotidine (Famotidine/Pf 20 Mg/2 Ml Vial) 20 mg IVPUSH BID [facility] Last Admin: 09/27/22 08:33 Dose: 20 mg Documented By: HAMLET Ferrous Sulfate (Ferrous Sulfate 324 Mg Tablet.) 324 mg PO DAILY [facility] Last Admin: 09/27/22 08:33 Dose: 324 mg Documented By: HAMLET Folic Acid (Folic Acid 1 Mg Tablet) 1 mg PO DAILY [facility] Last Admin: 09/27/22 08:33 Dose: 1 mg Documented By: HAMLET Hydromorphone HCl (Hydromorphone Hcl 1 Mg/Ml Syringe) 1.5 mg IVPUSH Q4H PRN; Protocol PRN Reason: Pain, Severe (Pain Scale 7-10) Last Admin: 09/27/22 08:31 Dose: 1.5 mg Documented By: HAMLET Lactated Ringer's (Lr) 1,000 mls @ 100 mls/hr IVCONT .Q10H [facility] Last Admin: 09/27/22 04:23 Dose: 100 mls/hr Documented By: CAROLINA Insulin Human Lispro (Insulin Lispro 100 Unit/Ml 3 Ml Vial) 0 unit SUBCUT QIDACHS [facility]; Protocol Last Admin: 09/27/22 08:25 Dose: 2 unit Documented By: HAMLET Magnesium Oxide (Magnesium Oxide 400 Mg Tablet) 800 mg PO BIDPC [facility] Last Admin: 09/27/22 08:32 Dose: 800 mg Documented By: HAMLET Metoprolol Succinate (Metoprolol Succinate Er 50 Mg Tab.Er.24h) 50 mg PO DAILY [facility]; Protocol Last Admin: 09/27/22 08:33 Dose: 50 mg Documented By: HAMLET Nicotine (Nicotine 21 Mg Patch.Td24) 21 mg TRANSDERMA DAILY [facility] Last Admin: 09/27/22 08:33 Dose: 21 mg Documented By: HAMLET Ondansetron HCl (Ondansetron Hcl 4 Mg/2 Ml Vial) 4 mg IVPUSH Q8H PRN PRN Reason: Nausea and Vomiting Last Admin: 09/26/22 19:28 Dose: 4 mg Documented By: CAROLINA Pharmacy Consult (Consult Rx Perform Med Rec) 1 each MISCELLANE ONCE PRN PRN Reason: Consult order Pharmacy Consult (Consult Rx Etoh Phenob Im/Po) 1 each MISCELLANE ONCE PRN; Protocol PRN Reason: Consult order Phenobarbital (Phenobarbital 30 Mg Tablet) 30 mg PO DAILY [facility]; Protocol Stop: 09/29/22 09:01 Sodium Chloride (0.9 % Sodium Chloride Flush 3 Ml Syringe) 3 ml IVFLUSH QSHIFT [facility] Last Admin: 09/27/22 08:34 Dose: 3 ml Documented By: HAMLET Thiamine HCl (Thiamine Hcl 100 Mg Tablet) 100 mg PO DAILY [facility] Last Admin: 09/27/22 08:33 Dose: 100 mg Documented By: HAMLET Trazodone HCl (Trazodone Hcl 50 Mg Tablet) 150 mg PO BEDTIME [facility] Last Admin: 09/26/22 23:04 Dose: 150 mg Documented By: MINGRISM Labs 09/27/22 05:44 09/27/22 05:44 Labs: Laboratory Results - last 24 hr 09/26/22 09/26/22 09/26/22 10:52 15:47 19:18 MCV MCH MCHC RDW Plt Count MPV Absolute Nucleated RBC Nucleated RBC % (auto) Anion Gap Estim Creat Clear Calc Estimated GFR POC Glucose 144 H 148 H 175 H Fasting Glucose Calcium Magnesium 09/27/22 09/27/22 09/27/22 05:44 05:44 07:46 MCV 88.9 MCH 28.0 MCHC 31.5 RDW 14.2 Plt Count 239 MPV 9.6 Absolute Nucleated RBC 0.000 Nucleated RBC % (auto) 0.0 Anion Gap 16 Estim Creat Clear Calc 163.8 Estimated GFR > 60 POC Glucose 159 H Fasting Glucose 152 H Calcium 7.3 L Magnesium 1.4 L* Assessment and Plan (1) Alcohol withdrawal: Status: Resolved (2) Acute on chronic pancreatitis: Status: Resolved (3) Alcohol dependence: Status: Inactive Plan 52 yo M with a PMH of DM, HTN, prior alcoholic pancreatitis who presents to the ED with comlpaints of shortness of breath and abdominal pain. He is diagnosed with asthma/copd exacerbation and acute alcohol pancreatitis. Acute alcoholic pancreatitis IVF, pain control, still with pain not interested in solid alcohol dependence with withdrawal phenobarb, monitor ciwa Suspected alcohol gastritis IV pepcid BID mild intermittent Asthma/copd exacerbation improved after rx in the ED updrafts and prednisone completed tobacco cessation encouraged HypoMg replace and monitor Lactic acidosis suspected due albuterol / metformin use no definite source of infection, monitor for now; no evidence of severe sepsis at this time DM hold orals, use sliding scale Full Code DVT pptx, Lovenox reason for continued hospitalization: awaiting tolerance of po Time Spent With Patient Time: Total time managing care of this patient today ____ minutes. Quality Stroke Does the patient have a stroke diagnosis?: No VTE Prior VTE?: No VTE Risk Level:: Medical - moderate - high VTE Device Contraindication: Treatment Not Indicated VTE Drug Contraindication: N/A - Med Ordered
[2022-09-27 11:52] LABS: Glucose, Whole Blood 109 mg/dL (60-115)
[2022-09-27 15:04] VITALS: BP 135/80; PULSE 74; RESP 17; TEMP 36.4; O2SAT 95
[2022-09-27 16:24] LABS: Glucose, Whole Blood 110 mg/dL (60-115)
[2022-09-27 19:24] VITALS: BP 146/85; PULSE 97; RESP 19; TEMP 36.6; O2SAT 93
[2022-09-27 19:51] VITALS: PULSE 87; RESP 16; O2SAT 94
[2022-09-27 19:52] LABS: Glucose, Whole Blood 110 mg/dL (60-115)
[2022-09-28] MEDS: HYDROmorphone HCl 1 MG/ML SYRINGE 1.5 MG IVPUSH ×6 (00:22→22:39)
[2022-09-28] MEDS: Lactated Ringers 1,000 ML 100 ML IVCONT ×3 (00:23→20:52)
[2022-09-28 03:52] VITALS: BP 145/84; PULSE 87; RESP 16; TEMP 36.1; O2SAT 95
[2022-09-28 05:36] LABS: Hematocrit 35.2 % (42.0-52.0); Mean Corpuscular HGB Conc 31.3 g/dl (31.0-36.0); Mean Corpuscular Hemoglobin 28.1 pg (27.0-33.0); Mean Platelet Volume 9.3 fL (9.4-12.4); Platelet Count 278 X10*3/uL (160-400); Red Blood Count 3.91 X10*6/uL (4.60-5.80); Red Cell Distribution Width 14.2 % (11.0-16.0); White Blood Count 5.4 X10*3/uL (4.8-10.8)
[2022-09-28 05:58] LABS: Anion Gap 15 (12-20); Blood Urea Nitrogen 4 mg/dL (9-16); Calcium 7.6 mg/dL (8.4-10.2); Carbon Dioxide 27 mmol/L (22-29); Chloride 98 mmol/L (96-108); Creatinine Clr Calc Pharmacy 155.2; Estimated Glomerular Filt Rate > 60; Glucose Fasting 113 mg/dL (60-99); Magnesium 1.4 mg/dL (1.6-2.6); Potassium 3.4 mmol/L (3.3-5.1); Sodium 137 mmol/L (135-145)
[2022-09-28] MEDS: Magnesium Sulfate/H2O 2 GM/50 ML PIGGYBACK IV (06:27)
[2022-09-28 07:34] LABS: Glucose, Whole Blood 120 mg/dL (60-115)
[2022-09-28 08:00] VITALS: BP 150/80; PULSE 87; RESP 18; TEMP 37.1; O2SAT 95
[2022-09-28] MEDS: Atorvastatin Calcium 40 MG TABLET PO (08:40)
[2022-09-28] MEDS: Ferrous Sulfate 324 MG TABLET.DR PO (08:41)
[2022-09-28] MEDS: Folic Acid 1 MG TABLET PO (08:41)
[2022-09-28] MEDS: amLODIPine Besylate 5 MG TABLET PO (08:41)
[2022-09-28] MEDS: Thiamine HCL 100 MG TABLET PO (08:41)
[2022-09-28] MEDS: Magnesium Oxide 400 MG TABLET 800 MG PO ×2 (08:41→18:28)
[2022-09-28] MEDS: PHENobarbitaL 30 MG TABLET PO (08:41)
[2022-09-28] MEDS: Metoprolol Succinate ER 50 MG TAB.ER.24H PO (08:41)
[2022-09-28] MEDS: 0.9 % Sodium Chloride Flush 3 ML SYRINGE IVFLUSH (08:42)
[2022-09-28] MEDS: Enoxaparin Sodium 40 MG/0.4 ML SYRINGE SUBCUT (08:42)
[2022-09-28] MEDS: Famotidine/PF 20 MG/2 ML VIAL IVPUSH ×2 (08:42→20:45)
[2022-09-28] MEDS: Nicotine 21 MG PATCH.TD24 TRANSDERMA ×2 (08:42→10:45)
--- NOTE | 2022-09-28 09:02 | P.PNIM_ITS ---
Subjective Subjective Date of Service: 09/28/22 Interval History: cc: abd pain interval history:wants to try solids Physical Exam Vital Signs: Vital Signs: Last Vital Signs Temp 98.7 F 09/28/22 08:00 Pulse 87 09/28/22 08:00 Resp 18 09/28/22 08:00 BP 150/80 H 09/28/22 08:00 Pulse Ox 95 09/28/22 08:00 O2 Del Method 09/28/22 08:00 BMI result Body Mass Index 29.0 General: AO X 3, no acute distress Resp: CTA bilateral, no accessory muscles used CVS: S1,S2,RRR GI: soft, tender, non distended Neuro: motor grossly intact, alert Psych: appropriate affect, appropriate insight Objective Data Active Medications Amlodipine Besylate (Amlodipine Besylate 5 Mg Tablet) 5 mg PO DAILY [facility]; Protoc ol Last Admin: 09/28/22 08:41 Dose: 5 mg Documented By: HAMLET Atorvastatin Calcium (Atorvastatin Calcium 40 Mg Tablet) 40 mg PO DAILY [facility] Last Admin: 09/28/22 08:40 Dose: 40 mg Documented By: HAMLET Benzonatate (Benzonatate 100 Mg Capsule) 200 mg PO TID PRN PRN Reason: cough Last Admin: 09/24/22 19:07 Dose: 200 mg Documented By: LIZ Albuterol Sulfate 2.5 mg/ (Ipratropium [place] 0.5 mg) 0 mg INHALE RBID PRN PRN Reason: Shortness of Breath Last Admin: 09/27/22 19:51 Dose: 2.5 each Documented By: JUDE Enoxaparin Sodium (Enoxaparin Sodium 40 Mg/0.4 Ml Syringe) 40 mg SUBCUT Q24H [facility] Last Admin: 09/28/22 08:42 Dose: 40 mg Documented By: HAMLET Famotidine (Famotidine/Pf 20 Mg/2 Ml Vial) 20 mg IVPUSH BID [facility] Last Admin: 09/28/22 08:42 Dose: 20 mg Documented By: HAMLET Ferrous Sulfate (Ferrous Sulfate 324 Mg Tablet.) 324 mg PO DAILY [facility] Last Admin: 09/28/22 08:41 Dose: 324 mg Documented By: HAMLET Folic Acid (Folic Acid 1 Mg Tablet) 1 mg PO DAILY [facility] Last Admin: 09/28/22 08:41 Dose: 1 mg Documented By: HAMLET Hydromorphone HCl (Hydromorphone Hcl 1 Mg/Ml Syringe) 1.5 mg IVPUSH Q4H PRN; Protocol PRN Reason: Pain, Severe (Pain Scale 7-10) Last Admin: 09/28/22 05:28 Dose: 1.5 mg Documented By: CAROLINA Lactated Ringer's (Lr) 1,000 mls @ 100 mls/hr IVCONT .Q10H [facility] Last Infusion: 09/28/22 08:45 Dose: 0 mls/hr Documented By: HAMLET Insulin Human Lispro (Insulin Lispro 100 Unit/Ml 3 Ml Vial) 0 unit SUBCUT QIDACHS [facility]; Protocol Last Admin: 09/28/22 07:37 Dose: Not Given Documented By: HAMLET Non-Admin Reason: No Insulin Coverage Magnesium Oxide (Magnesium Oxide 400 Mg Tablet) 800 mg PO BIDPC [facility] Last Admin: 09/28/22 08:41 Dose: 800 mg Documented By: HAMLET Metoprolol Succinate (Metoprolol Succinate Er 50 Mg Tab.Er.24h) 50 mg PO DAILY [facility]; Protocol Last Admin: 09/28/22 08:41 Dose: 50 mg Documented By: HAMLET Nicotine (Nicotine 21 Mg Patch.Td24) 21 mg TRANSDERMA DAILY [facility] Last Admin: 09/28/22 08:42 Dose: 21 mg Documented By: HAMLET Ondansetron HCl (Ondansetron Hcl 4 Mg/2 Ml Vial) 4 mg IVPUSH Q8H PRN PRN Reason: Nausea and Vomiting Last Admin: 09/26/22 19:28 Dose: 4 mg Documented By: CAROLINA Pharmacy Consult (Consult Rx Perform Med Rec) 1 each MISCELLANE ONCE PRN PRN Reason: Consult order Pharmacy Consult (Consult Rx Etoh Phenob Im/Po) 1 each MISCELLANE ONCE PRN; Protocol PRN Reason: Consult order Phenobarbital (Phenobarbital 30 Mg Tablet) 30 mg PO DAILY [facility]; Protocol Stop: 09/29/22 09:01 Last Admin: 09/28/22 08:41 Dose: 30 mg Documented By: HAMLET Sodium Chloride (0.9 % Sodium Chloride Flush 3 Ml Syringe) 3 ml IVFLUSH QSHIFT [facility] Last Admin: 09/28/22 08:42 Dose: 3 ml Documented By: HAMLET Thiamine HCl (Thiamine Hcl 100 Mg Tablet) 100 mg PO DAILY [facility] Last Admin: 09/28/22 08:41 Dose: 100 mg Documented By: HAMLET Trazodone HCl (Trazodone Hcl 50 Mg Tablet) 150 mg PO BEDTIME [facility] Last Admin: 09/27/22 22:42 Dose: Not Given Documented By: CAROLINA Non-Admin Reason: Patient Refused Labs 09/28/22 05:23 09/28/22 05:23 Labs: Laboratory Results - last 24 hr 09/27/22 09/27/22 09/27/22 11:42 16:12 19:41 MCV MCH MCHC RDW Plt Count MPV Absolute Nucleated RBC Nucleated RBC % (auto) Anion Gap Estim Creat Clear Calc Estimated GFR POC Glucose 109 110 110 Fasting Glucose Calcium Magnesium 09/28/22 09/28/22 09/28/22 05:23 05:23 07:10 MCV 90.0 MCH 28.1 MCHC 31.3 RDW 14.2 Plt Count 278 MPV 9.3 L Absolute Nucleated RBC 0.000 Nucleated RBC % (auto) 0.0 Anion Gap 15 Estim Creat Clear Calc 155.2 Estimated GFR > 60 POC Glucose 120 H Fasting Glucose 113 H Calcium 7.6 L Magnesium 1.4 L* Microbiology Microbiology Results: Microbiology 09/23/22 02:32 Blood Culture - Final Blood - Venous No growth after 5 days. 09/23/22 02:32 Blood Culture - Final Blood - Venous No growth after 5 days. Assessment and Plan (1) Alcohol withdrawal: Status: Resolved (2) Acute on chronic pancreatitis: Status: Resolved (3) Alcohol dependence: Status: Inactive Plan 52 yo M with a PMH of DM, HTN, prior alcoholic pancreatitis who presents to the ED with comlpaints of shortness of breath and abdominal pain. He is diagnosed with asthma/copd exacerbation and acute alcohol pancreatitis. Acute alcoholic pancreatitis IVF, pain control, trial of solids alcohol dependence with withdrawal phenobarb, monitor ciwa Suspected alcohol gastritis IV pepcid BID mild intermittent Asthma/copd exacerbation improved after rx in the ED updrafts and prednisone completed tobacco cessation encouraged HypoMg replace and monitor Lactic acidosis suspected due albuterol / metformin use no definite source of infection, monitor for now; no evidence of severe sepsis at this time DM hold orals, use sliding scale Full Code DVT pptx, Lovenox reason for continued hospitalization: awaiting tolerance of po Time Spent With Patient Time: Total time managing care of this patient today ____ minutes. Quality Stroke Does the patient have a stroke diagnosis?: No VTE Prior VTE?: No VTE Risk Level:: Medical - moderate - high VTE Device Contraindication: Treatment Not Indicated VTE Drug Contraindication: N/A - Med Ordered
[2022-09-28 11:56] LABS: Glucose, Whole Blood 141 mg/dL (60-115)
[2022-09-28 12:48] VITALS: PULSE 87; RESP 18; O2SAT 95
[2022-09-28 16:00] VITALS: BP 142/80; PULSE 89; RESP 16; TEMP 37.2; O2SAT 95
[2022-09-28 16:29] LABS: Glucose, Whole Blood 140 mg/dL (60-115)
[2022-09-28 20:00] VITALS: BP 163/79; PULSE 83; RESP 20; TEMP 36.9; O2SAT 94
[2022-09-28 21:00] VITALS: PULSE 89; RESP 16
[2022-09-28 21:03] LABS: Glucose, Whole Blood 143 mg/dL (60-115)
[2022-09-28] MEDS: traZODone HCL 50 MG TABLET 150 MG PO (22:40)
[2022-09-29 03:26] VITALS: BP 133/75; PULSE 82; RESP 16; TEMP 36.7; O2SAT 93
[2022-09-29] MEDS: HYDROmorphone HCl 1 MG/ML SYRINGE 1.5 MG IVPUSH ×5 (03:57→21:59)
[2022-09-29] MEDS: Lactated Ringers 1,000 ML 100 ML IVCONT ×2 (06:04→18:01)
[2022-09-29 06:23] LABS: Hemoglobin 10.4 g/dl (14.0-18.0); Mean Corpuscular HGB Conc 31.5 g/dl (31.0-36.0); Mean Corpuscular Hemoglobin 27.8 pg (27.0-33.0); Mean Corpuscular Volume 88.2 fL (80.0-98.0); Platelet Count 315 X10*3/uL (160-400); Red Blood Count 3.74 X10*6/uL (4.60-5.80); Red Cell Distribution Width 13.8 % (11.0-16.0); White Blood Count 5.1 X10*3/uL (4.8-10.8)
[2022-09-29 06:56] VITALS: BP 135/69; PULSE 88; RESP 19; TEMP 37.2; O2SAT 96
[2022-09-29 07:26] LABS: Anion Gap 15 (12-20); Blood Urea Nitrogen < 3 mg/dL (9-16); Calcium 7.4 mg/dL (8.4-10.2); Carbon Dioxide 28 mmol/L (22-29); Chloride 96 mmol/L (96-108); Creatinine Clr Calc Pharmacy 166.9; Estimated Glomerular Filt Rate > 60; Glucose Fasting 146 mg/dL (60-99); Magnesium 1.3 mg/dL (1.6-2.6); Potassium 3.2 mmol/L (3.3-5.1); Sodium 136 mmol/L (135-145)
[2022-09-29 07:39] LABS: Glucose, Whole Blood 163 mg/dL (60-115)
[2022-09-29] MEDS: Folic Acid 1 MG TABLET PO (08:20)
[2022-09-29] MEDS: PHENobarbitaL 30 MG TABLET PO (08:20)
[2022-09-29] MEDS: Thiamine HCL 100 MG TABLET PO (08:21)
[2022-09-29] MEDS: Magnesium Oxide 400 MG TABLET 800 MG PO ×2 (08:21→17:02)
[2022-09-29] MEDS: Atorvastatin Calcium 40 MG TABLET PO (08:21)
[2022-09-29] MEDS: Insulin Lispro 100 UNIT/ML 3 ML VIAL SUBCUT ×2 (08:21→17:01)
[2022-09-29] MEDS: Ferrous Sulfate 324 MG TABLET.DR PO (08:21)
[2022-09-29] MEDS: amLODIPine Besylate 5 MG TABLET PO (08:21)
[2022-09-29] MEDS: Metoprolol Succinate ER 50 MG TAB.ER.24H PO (08:22)
[2022-09-29] MEDS: Enoxaparin Sodium 40 MG/0.4 ML SYRINGE SUBCUT (08:22)
[2022-09-29] MEDS: Famotidine/PF 20 MG/2 ML VIAL IVPUSH ×2 (08:22→08:38)
[2022-09-29] MEDS: Magnesium Sulfate/H2O 2 GM/50 ML PIGGYBACK IV (08:23)
[2022-09-29] MEDS: 0.9 % Sodium Chloride Flush 3 ML SYRINGE IVFLUSH ×2 (08:38→21:59)
[2022-09-29] MEDS: Nicotine 21 MG PATCH.TD24 TRANSDERMA (08:45)
--- NOTE | 2022-09-29 10:33 | P.PNIM_ITS ---
Subjective Subjective Date of Service: 09/29/22 Interval History: cc: abd pain interval history:not eating much, still with pain Physical Exam Vital Signs: Vital Signs: Last Vital Signs Temp 99.0 F 09/29/22 06:56 Pulse 88 09/29/22 06:56 Resp 19 09/29/22 06:56 BP 135/69 09/29/22 06:56 Pulse Ox 96 09/29/22 06:56 O2 Del Method 09/29/22 06:56 BMI result Body Mass Index 29.0 General: AO X 3, no acute distress Resp: CTA bilateral, no accessory muscles used CVS: S1,S2,RRR GI: soft, tender, non distended Neuro: motor grossly intact, alert Psych: appropriate affect, appropriate insight Objective Data Active Medications Amlodipine Besylate (Amlodipine Besylate 5 Mg Tablet) 5 mg PO DAILY [facility]; Protocol Last Admin: 09/29/22 08:21 Dose: 5 mg Documented By: JOHN Atorvastatin Calcium (Atorvastatin Calcium 40 Mg Tablet) 40 mg PO DAILY [facility] Last Admin: 09/29/22 08:21 Dose: 40 mg Documented By: JONH Benzonatate (Benzonatate 100 Mg Capsule) 200 mg PO TID PRN PRN Reason: cough Last Admin: 09/24/22 19:07 Dose: 200 mg Documented By: LIZ Albuterol Sulfate 2.5 mg/ (Ipratropium [place] 0.5 mg) 0 mg INHALE RBID PRN PRN Reason: Shortness of Breath Last Admin: 09/28/22 20:59 Dose: 2.5 each Documented By: LISA Enoxaparin Sodium (Enoxaparin Sodium 40 Mg/0.4 Ml Syringe) 40 mg SUBCUT Q24H [facility] Last Admin: 09/29/22 08:22 Dose: 40 mg Documented By: JOHN Famotidine (Famotidine/Pf 20 Mg/2 Ml Vial) 20 mg IVPUSH BID [facility] Last Admin: 09/29/22 08:38 Dose: 20 mg Documented By: JOHN Ferrous Sulfate (Ferrous Sulfate 324 Mg Tablet.) 324 mg PO DAILY [facility] Last Admin: 09/29/22 08:21 Dose: 324 mg Documented By: JOHN Folic Acid (Folic Acid 1 Mg Tablet) 1 mg PO DAILY [facility] Last Admin: 09/29/22 08:20 Dose: 1 mg Documented By: JOHN Hydromorphone HCl (Hydromorphone Hcl 1 Mg/Ml Syringe) 1.5 mg IVPUSH Q4H PRN; Protocol PRN Reason: Pain, Severe (Pain Scale 7-10) Last Admin: 09/29/22 08:50 Dose: 1.5 mg Documented By: JOHN Lactated Ringer's (Lr) 1,000 mls @ 100 mls/hr IVCONT .Q10H [facility] Last Admin: 09/29/22 06:04 Dose: 100 mls/hr Documented By: FELIPEIDLara Insulin Human Lispro (Insulin Lispro 100 Unit/Ml 3 Ml Vial) 0 unit SUBCUT QIDACHS [facility]; Protocol Last Admin: 09/29/22 08:21 Dose: 2 unit Documented By: JOHN Magnesium Oxide (Magnesium Oxide 400 Mg Tablet) 800 mg PO BIDPC [facility] Last Admin: 09/29/22 08:21 Dose: 800 mg Documented By: JOHN Metoprolol Succinate (Metoprolol Succinate Er 50 Mg Tab.Er.24h) 50 mg PO DAILY [facility]; Protocol Last Admin: 09/29/22 08:22 Dose: 50 mg Documented By: JOHN Nicotine (Nicotine 21 Mg Patch.Td24) 21 mg TRANSDERMA DAILY [facility] Last Admin: 09/29/22 08:45 Dose: 21 mg Documented By: JOHN Ondansetron HCl (Ondansetron Hcl 4 Mg/2 Ml Vial) 4 mg IVPUSH Q8H PRN PRN Reason: Nausea and Vomiting Last Admin: 09/26/22 19:28 Dose: 4 mg Documented By: CAROLINA Pharmacy Consult (Consult Rx Perform Med Rec) 1 each MISCELLANE ONCE PRN PRN Reason: Consult order Pharmacy Consult (Consult Rx Etoh Phenob Im/Po) 1 each MISCELLANE ONCE PRN; Protocol PRN Reason: Consult order Sodium Chloride (0.9 % Sodium Chloride Flush 3 Ml Syringe) 3 ml IVFLUSH QSHIFT [facility] Last Admin: 09/29/22 08:38 Dose: 3 ml Documented By: JOHN Thiamine HCl (Thiamine Hcl 100 Mg Tablet) 100 mg PO DAILY [facility] Last Admin: 09/29/22 08:21 Dose: 100 mg Documented By: JOHN Trazodone HCl (Trazodone Hcl 50 Mg Tablet) 150 mg PO BEDTIME [facility] Last Admin: 09/28/22 22:40 Dose: 150 mg Documented By: MADELINE Labs 09/29/22 05:54 09/29/22 05:54 Labs: Laboratory Results - last 24 hr 09/28/22 09/28/22 09/28/22 11:43 16:09 20:59 MCV MCH MCHC RDW Plt Count MPV Absolute Nucleated RBC Nucleated RBC % (auto) Anion Gap Estim Creat Clear Calc Estimated GFR POC Glucose 141 H 140 H 143 H Fasting Glucose Calcium Magnesium 09/29/22 09/29/22 09/29/22 05:54 05:54 07:01 MCV 88.2 MCH 27.8 MCHC 31.5 RDW 13.8 Plt Count 315 MPV 9.0 L Absolute Nucleated RBC 0.000 Nucleated RBC % (auto) 0.0 Anion Gap 15 Estim Creat Clear Calc 166.9 Estimated GFR > 60 POC Glucose 163 H Fasting Glucose 146 H Calcium 7.4 L Magnesium 1.3 L* Assessment and Plan (1) Alcohol withdrawal: Status: Resolved (2) Acute on chronic pancreatitis: Status: Resolved (3) Alcohol dependence: Status: Inactive Plan 52 yo M with a PMH of DM, HTN, prior alcoholic pancreatitis who presents to the ED with comlpaints of shortness of breath and abdominal pain. He is diagnosed with asthma/copd exacerbation and acute alcohol pancreatitis. Acute alcoholic pancreatitis IVF, pain control, tried solids, not eating much still with pain alcohol dependence with withdrawal phenobarb completed Suspected alcohol gastritis IV pepcid BID mild intermittent Asthma/copd exacerbation improved after rx in the ED updrafts and prednisone completed tobacco cessation encouraged HypoMg replace and monitor Lactic acidosis suspected due albuterol / metformin use no definite source of infection, monitor for now; no evidence of severe sepsis at this time DM hold orals, use sliding scale Full Code DVT pptx, Lovenox reason for continued hospitalization: awaiting tolerance of po Time Spent With Patient Time: Total time managing care of this patient today ____ minutes. Quality Stroke Does the patient have a stroke diagnosis?: No VTE Prior VTE?: No VTE Risk Level:: Medical - moderate - high VTE Device Contraindication: Treatment Not Indicated VTE Drug Contraindication: N/A - Med Ordered
[2022-09-29 11:28] LABS: Glucose, Whole Blood 120 mg/dL (60-115)
[2022-09-29 11:54] VITALS: PULSE 87; RESP 16; O2SAT 95
[2022-09-29 15:40] VITALS: BP 134/76; PULSE 87; RESP 18; TEMP 36.6; O2SAT 95
[2022-09-29 16:04] LABS: Glucose, Whole Blood 194 mg/dL (60-115)
[2022-09-29 19:38] VITALS: BP 146/76; PULSE 82; RESP 18; TEMP 36.6; O2SAT 94
[2022-09-29 20:20] LABS: Glucose, Whole Blood 111 mg/dL (60-115)
[2022-09-29 21:52] VITALS: PULSE 88; RESP 22; O2SAT 93
[2022-09-29] MEDS: traZODone HCL 50 MG TABLET 150 MG PO (21:59)
[2022-09-30] MEDS: HYDROmorphone HCl 1 MG/ML SYRINGE 1.5 MG IVPUSH ×5 (02:27→19:46)
[2022-09-30] MEDS: Lactated Ringers 1,000 ML 100 ML IVCONT ×2 (02:29→15:37)
[2022-09-30 03:13] VITALS: BP 146/79; PULSE 88; RESP 18; TEMP 36.3; O2SAT 94
[2022-09-30 06:40] VITALS: PULSE 93; RESP 16; O2SAT 94
[2022-09-30 07:01] VITALS: BP 138/78; PULSE 95; RESP 18; TEMP 36.6; O2SAT 95
[2022-09-30 07:21] LABS: Hematocrit 33.7 % (42.0-52.0); Hemoglobin 10.7 g/dl (14.0-18.0); Mean Corpuscular HGB Conc 31.8 g/dl (31.0-36.0); Mean Corpuscular Hemoglobin 27.9 pg (27.0-33.0); Mean Corpuscular Volume 87.8 fL (80.0-98.0); Mean Platelet Volume 9.1 fL (9.4-12.4); Platelet Count 354 X10*3/uL (160-400); Red Blood Count 3.84 X10*6/uL (4.60-5.80); White Blood Count 9.1 X10*3/uL (4.8-10.8)
[2022-09-30 07:26] LABS: Glucose, Whole Blood 161 mg/dL (60-115)
[2022-09-30 07:43] LABS: Anion Gap 13 (12-20); Blood Urea Nitrogen < 3 mg/dL (9-16); Calcium 7.5 mg/dL (8.4-10.2); Carbon Dioxide 31 mmol/L (22-29); Chloride 94 mmol/L (96-108); Creatinine Clr Calc Pharmacy 163.8; Estimated Glomerular Filt Rate > 60; Glucose Fasting 147 mg/dL (60-99); Magnesium 1.4 mg/dL (1.6-2.6); Potassium 3.1 mmol/L (3.3-5.1); Sodium 135 mmol/L (135-145)
[2022-09-30] MEDS: Famotidine/PF 20 MG/2 ML VIAL IVPUSH ×2 (07:46→19:46)
[2022-09-30] MEDS: Insulin Lispro 100 UNIT/ML 3 ML VIAL SUBCUT ×2 (07:46→16:51)
[2022-09-30] MEDS: Nicotine 21 MG PATCH.TD24 TRANSDERMA (07:46)
[2022-09-30] MEDS: Magnesium Oxide 400 MG TABLET 800 MG PO ×2 (07:47→16:52)
[2022-09-30] MEDS: Atorvastatin Calcium 40 MG TABLET PO (07:47)
[2022-09-30] MEDS: Thiamine HCL 100 MG TABLET PO (07:47)
[2022-09-30] MEDS: Folic Acid 1 MG TABLET PO (07:47)
[2022-09-30] MEDS: Ferrous Sulfate 324 MG TABLET.DR PO (07:47)
[2022-09-30] MEDS: Metoprolol Succinate ER 50 MG TAB.ER.24H PO (07:47)
[2022-09-30] MEDS: amLODIPine Besylate 5 MG TABLET PO (07:47)
[2022-09-30] MEDS: Enoxaparin Sodium 40 MG/0.4 ML SYRINGE SUBCUT (07:52)
[2022-09-30] MEDS: Magnesium Sulfate/H2O 2 GM/50 ML PIGGYBACK IV (09:15)
[2022-09-30 11:08] LABS: Glucose, Whole Blood 104 mg/dL (60-115)
--- NOTE | 2022-09-30 11:41 | HO.PM.IMPN ---
Subjective Subjective Date of Service: 09/30/22 Interval History: cc: abd pain interval history:not eating much, still with pain Physical Exam Vital Signs: Vital Signs: Last Vital Signs Temp 97.9 F 09/30/22 07:01 Pulse 95 09/30/22 07:01 Resp 18 09/30/22 07:01 BP 138/78 09/30/22 07:01 Pulse Ox 95 09/30/22 07:01 O2 Del Method 09/30/22 07:01 BMI result Body Mass Index 29.0 General: AO X 3, no acute distress Resp: CTA bilateral, no accessory muscles used CVS: S1,S2,RRR GI: soft, tender, non distended Neuro: motor grossly intact, alert Psych: appropriate affect, appropriate insight Objective Data Active Medications Amlodipine Besylate (Amlodipine Besylate 5 Mg Tablet) 5 mg PO DAILY [facility]; Protocol Last Admin: 09/30/22 07:47 Dose: 5 mg Documented By: SUNNY Atorvastatin Calcium (Atorvastatin Calcium 40 Mg Tablet) 40 mg PO DAILY [facility] Last Admin: 09/30/22 07:47 Dose: 40 mg Documented By: SUNNY Benzonatate (Benzonatate 100 Mg Capsule) 200 mg PO TID PRN PRN Reason: cough Last Admin: 09/24/22 19:07 Dose: 200 mg Documented By: LIZ Albuterol Sulfate 2.5 mg/ (Ipratropium [place] 0.5 mg) 0 mg INHALE RBID PRN PRN Reason: Shortness of Breath Last Admin: 09/30/22 06:39 Dose: 1 each Documented By: JAVED Enoxaparin Sodium (Enoxaparin Sodium 40 Mg/0.4 Ml Syringe) 40 mg SUBCUT Q24H [facility] Last Admin: 09/30/22 07:52 Dose: 40 mg Documented By: SUNNY Famotidine (Famotidine/Pf 20 Mg/2 Ml Vial) 20 mg IVPUSH BID [facility] Last Admin: 09/30/22 07:46 Dose: 20 mg Documented By: SUNNY Ferrous Sulfate (Ferrous Sulfate 324 Mg Tablet.) 324 mg PO DAILY [facility] Last Admin: 09/30/22 07:47 Dose: 324 mg Documented By: SUNNY Folic Acid (Folic Acid 1 Mg Tablet) 1 mg PO DAILY [facility] Last Admin: 09/30/22 07:47 Dose: 1 mg Documented By: SUNNY Hydromorphone HCl (Hydromorphone Hcl 1 Mg/Ml Syringe) 1.5 mg IVPUSH Q4H PRN; Protocol PRN Reason: Pain, Severe (Pain Scale 7-10) Last Admin: 09/30/22 11:32 Dose: 1.5 mg Documented By: SUNNY Lactated Ringer's (Lr) 1,000 mls @ 100 mls/hr IVCONT .Q10H [facility] Last Admin: 09/30/22 02:29 Dose: 100 mls/hr Documented By: MALCOLMQC Insulin Human Lispro (Insulin Lispro 100 Unit/Ml 3 Ml Vial) 0 unit SUBCUT QIDACHS [facility]; Protocol Last Admin: 09/30/22 11:39 Dose: Not Given Documented By: SUNNY Non-Admin Reason: No Insulin Coverage Magnesium Oxide (Magnesium Oxide 400 Mg Tablet) 800 mg PO BIDPC [facility] Last Admin: 09/30/22 07:47 Dose: 800 mg Documented By: SUNNY Metoprolol Succinate (Metoprolol Succinate Er 50 Mg Tab.Er.24h) 50 mg PO DAILY [facility]; Protocol Last Admin: 09/30/22 07:47 Dose: 50 mg Documented By: SUNNY Nicotine (Nicotine 21 Mg Patch.Td24) 21 mg TRANSDERMA DAILY [facility] Last Admin: 09/30/22 07:46 Dose: 21 mg Documented By: SUNNY Ondansetron HCl (Ondansetron Hcl 4 Mg/2 Ml Vial) 4 mg IVPUSH Q8H PRN PRN Reason: Nausea and Vomiting Last Admin: 09/26/22 19:28 Dose: 4 mg Documented By: ODRISAlon Pharmacy Consult (Consult Rx Perform Med Rec) 1 each MISCELLANE ONCE PRN PRN Reason: Consult order Pharmacy Consult (Consult Rx Etoh Phenob Im/Po) 1 each MISCELLANE ONCE PRN; Protocol PRN Reason: Consult order Sodium Chloride (0.9 % Sodium Chloride Flush 3 Ml Syringe) 3 ml IVFLUSH QSHIFT [facility] Last Admin: 09/30/22 06:54 Dose: Not Given Documented By: SUNNY Non-Admin Reason: IV Running Thiamine HCl (Thiamine Hcl 100 Mg Tablet) 100 mg PO DAILY [facility] Last Admin: 09/30/22 07:47 Dose: 100 mg Documented By: DABClark Trazodone HCl (Trazodone Hcl 50 Mg Tablet) 150 mg PO BEDTIME [facility] Last Admin: 09/29/22 21:59 Dose: 150 mg Documented By: LIZ Labs 09/30/22 06:56 09/30/22 06:56 Labs: Laboratory Results - last 24 hr 09/29/22 09/29/22 09/30/22 15:53 19:42 06:56 MCV 87.8 MCH 27.9 MCHC 31.8 RDW 14.0 Plt Count 354 MPV 9.1 L Absolute Nucleated RBC 0.000 Nucleated RBC % (auto) 0.0 Anion Gap Estim Creat Clear Calc Estimated GFR POC Glucose 194 H 111 Fasting Glucose Calcium Magnesium 09/30/22 09/30/22 09/30/22 06:56 07:01 11:02 MCV MCH MCHC RDW Plt Count MPV Absolute Nucleated RBC Nucleated RBC % (auto) Anion Gap 13 Estim Creat Clear Calc 163.8 Estimated GFR > 60 POC Glucose 161 H 104 Fasting Glucose 147 H Calcium 7.5 L Magnesium 1.4 L* Assessment and Plan (1) Alcohol withdrawal: Status: Resolved (2) Acute on chronic pancreatitis: Status: Resolved (3) Alcohol dependence: Status: Inactive Plan 52 yo M with a PMH of DM, HTN, prior alcoholic pancreatitis who presents to the ED with comlpaints of shortness of breath and abdominal pain. He is diagnosed with asthma/copd exacerbation and acute alcohol pancreatitis. Acute alcoholic pancreatitis continue IVF, pain control, tried solids, not eating much still with pain monitor lytes alcohol dependence with withdrawal phenobarb completed Suspected alcohol gastritis IV pepcid BID mild intermittent Asthma/copd exacerbation improved after rx in the ED updrafts and prednisone completed tobacco cessation encouraged HypoMg replace and monitor Lactic acidosis suspected due albuterol / metformin use no definite source of infection, monitor for now; no evidence of severe sepsis at this time DM hold orals, use sliding scale Full Code DVT pptx, Lovenox reason for continued hospitalization: awaiting tolerance of po Time Spent With Patient Time: Total time managing care of this patient today ____ minutes. Quality Stroke Does the patient have a stroke diagnosis?: No VTE Prior VTE?: No VTE Risk Level:: Medical - moderate - high VTE Device Contraindication: Treatment Not Indicated VTE Drug Contraindication: N/A - Med Ordered
[2022-09-30 15:13] VITALS: BP 156/87; PULSE 88; RESP 18; TEMP 37; O2SAT 94
[2022-09-30 15:18] LABS: Glucose, Whole Blood 152 mg/dL (60-115)
[2022-09-30 15:36] VITALS: RESP 19
[2022-09-30] MEDS: ondansetron HCL 4 MG/2 ML VIAL IVPUSH (15:37)
[2022-09-30 16:49] LABS: Glucose, Whole Blood 151 mg/dL (60-115)
[2022-09-30 19:37] LABS: Glucose, Whole Blood 102 mg/dL (60-115)
[2022-09-30 19:39] VITALS: BP 147/94; PULSE 77; RESP 18; TEMP 37; O2SAT 98
[2022-09-30] MEDS: traZODone HCL 50 MG TABLET 150 MG PO (21:16)
[2022-10-01] MEDS: Lactated Ringers 1,000 ML 100 ML IVCONT (00:32)
[2022-10-01] MEDS: HYDROmorphone HCl 1 MG/ML SYRINGE 1.5 MG IVPUSH ×3 (00:32→09:39)
[2022-10-01 04:00] VITALS: RESP 18
[2022-10-01 07:09] LABS: Hematocrit 32.9 % (42.0-52.0); Hemoglobin 10.3 g/dl (14.0-18.0); Mean Corpuscular HGB Conc 31.3 g/dl (31.0-36.0); Mean Corpuscular Hemoglobin 27.9 pg (27.0-33.0); Mean Corpuscular Volume 89.2 fL (80.0-98.0); Mean Platelet Volume 8.9 fL (9.4-12.4); Platelet Count 368 X10*3/uL (160-400); Red Blood Count 3.69 X10*6/uL (4.60-5.80); White Blood Count 7.8 X10*3/uL (4.8-10.8)
[2022-10-01 07:44] VITALS: BP 164/82; PULSE 92; RESP 18; TEMP 36.7; O2SAT 95
[2022-10-01 07:44] LABS: Glucose, Whole Blood 108 mg/dL (60-115)
[2022-10-01 07:53] LABS: Anion Gap 14 (12-20); Blood Urea Nitrogen < 3 mg/dL (9-16); Calcium 7.5 mg/dL (8.4-10.2); Carbon Dioxide 30 mmol/L (22-29); Chloride 96 mmol/L (96-108); Creatinine Clr Calc Pharmacy 176.9; Estimated Glomerular Filt Rate > 60; Glucose Fasting 104 mg/dL (60-99); Sodium 137 mmol/L (135-145)
[2022-10-01 07:55] LABS: Magnesium 1.4 mg/dL (1.6-2.6)
[2022-10-01 08:46] VITALS: PULSE 87; RESP 18; O2SAT 92
[2022-10-01] MEDS: amLODIPine Besylate 5 MG TABLET PO (09:06)
[2022-10-01] MEDS: Ferrous Sulfate 324 MG TABLET.DR PO (09:06)
[2022-10-01] MEDS: Folic Acid 1 MG TABLET PO (09:06)
[2022-10-01] MEDS: Atorvastatin Calcium 40 MG TABLET PO (09:06)
[2022-10-01] MEDS: Metoprolol Succinate ER 50 MG TAB.ER.24H PO (09:06)
[2022-10-01] MEDS: Thiamine HCL 100 MG TABLET PO (09:06)
[2022-10-01] MEDS: Famotidine/PF 20 MG/2 ML VIAL IVPUSH ×2 (09:07→21:39)
[2022-10-01] MEDS: Nicotine 21 MG PATCH.TD24 TRANSDERMA (09:07)
[2022-10-01] MEDS: Enoxaparin Sodium 40 MG/0.4 ML SYRINGE SUBCUT (09:07)
[2022-10-01] MEDS: Magnesium Sulfate/H2O 2 GM/50 ML PIGGYBACK IV (09:07)
[2022-10-01] MEDS: Magnesium Oxide 400 MG TABLET 800 MG PO ×2 (09:14→17:09)
--- NOTE | 2022-10-01 10:40 | MHC.CM.PN ---
PLAN IS HOME TOMORROW PATIENT CAN ARRANGE FOR HIS OWN TRANSPORTATION (PER PATIENT)
[2022-10-01] MEDS: methylPREDNISolone Sod Succ 40 MG/ML VIAL IVPUSH (11:03)
[2022-10-01] MEDS: Lactated Ringers 1,000 ML 150 ML IVCONT ×2 (11:03→18:54)
[2022-10-01] MEDS: guaiFENesin LA 600 MG TAB.ER.12H PO ×2 (11:03→21:39)
[2022-10-01 11:24] LABS: Glucose, Whole Blood 137 mg/dL (60-115)
[2022-10-01] MEDS: HYDROmorphone HCl 1 MG/ML SYRINGE IVPUSH ×3 (14:02→23:46)
[2022-10-01] MEDS: Benzonatate 100 MG CAPSULE 200 MG PO (14:02)
[2022-10-01 14:57] VITALS: BP 136/79; PULSE 84; RESP 19; TEMP 37.2; O2SAT 92
--- NOTE | 2022-10-01 15:20 | HO.PM.IMPN ---
Subjective Subjective Date of Service: 10/01/22 Interval History: the patient was seen and evaluated this morning Laying in bed, complaining of pain and nausea Denies any fever, chills or shortness of breath No reported other overnight events. Review of Systems Review of Systems: Yes all other systems are reviewed and are negative Physical Exam Vital Signs: Vital Signs: Last Vital Signs Temp 99.0 F 10/01/22 14:57 Pulse 84 10/01/22 14:57 Resp 19 10/01/22 14:57 BP 136/79 10/01/22 14:57 Pulse Ox 92 10/01/22 14:57 O2 Del Method 10/01/22 14:57 BMI result Body Mass Index 29.0 Const: Other: Constitutional : Awake, interactive, not in distress Neck : Normal inspection, Supple Cardiovascular : RRR, no JVP, no lower extremity edema Respiratory : good bilateral air entry, no crackles, wheezes or rhonchi Gastrointestinal: soft, lax, Normal bowel sounds, Epigastric tenderness with superficial palpation Skin : Warm, Dry Neurological : Alert & oriented x3, No focal deficit Objective Data Active Medications Amlodipine Besylate (Amlodipine Besylate 5 Mg Tablet) 5 mg PO DAILY [facility]; Protocol Last Admin: 10/01/22 09:06 Dose: 5 mg Documented By: HUGH Atorvastatin Calcium (Atorvastatin Calcium 40 Mg Tablet) 40 mg PO DAILY [facility] Last Admin: 10/01/22 09:06 Dose: 40 mg Documented By: HUGH Benzonatate (Benzonatate 100 Mg Capsule) 200 mg PO TID PRN PRN Reason: cough Last Admin: 10/01/22 14:02 Dose: 200 mg Documented By: HUGH Albuterol Sulfate 2.5 mg/ (Ipratropium [place] 0.5 mg) 0 mg INHALE RBID PRN PRN Reason: Shortness of Breath Last Admin: 10/01/22 08:43 Dose: 2.5 each Documented By: ANGELA Enoxaparin Sodium (Enoxaparin Sodium 40 Mg/0.4 Ml Syringe) 40 mg SUBCUT Q24H [facility] Last Admin: 10/01/22 09:07 Dose: 40 mg Documented By: HUGH Famotidine (Famotidine/Pf 20 Mg/2 Ml Vial) 20 mg IVPUSH BID [facility] Last Admin: 10/01/22 09:07 Dose: 20 mg Documented By: HUGH Ferrous Sulfate (Ferrous Sulfate 324 Mg Tablet.) 324 mg PO DAILY [facility] Last Admin: 10/01/22 09:06 Dose: 324 mg Documented By: HUGH Folic Acid (Folic Acid 1 Mg Tablet) 1 mg PO DAILY [facility] Last Admin: 10/01/22 09:06 Dose: 1 mg Documented By: HUGH Guaifenesin (Guaifenesin La 600 Mg Tab.Er.12h) 600 mg PO BID [facility] Last Admin: 10/01/22 11:03 Dose: 600 mg Documented By: HUGH Hydromorphone HCl (Hydromorphone Hcl 1 Mg/Ml Syringe) 1 mg IVPUSH Q4H PRN; Protocol PRN Reason: Pain, Severe (Pain Scale 7-10) Last Admin: 10/01/22 14:02 Dose: 1 mg Documented By: HUGH Lactated Ringer's (Lr) 1,000 mls @ 150 mls/hr IVCONT .Q6H40M [facility] Last Admin: 10/01/22 11:03 Dose: 150 mls/hr Documented By: HUGH Insulin Human Lispro (Insulin Lispro 100 Unit/Ml 3 Ml Vial) 0 unit SUBCUT QIDACHS [facility]; Protocol Last Admin: 10/01/22 11:28 Dose: Not Given Documented By: HUGH Non-Admin Reason: No Insulin Coverage Magnesium Oxide ([facility]ide 400 Mg Tablet) [facility] Last Admin: 10/01/22 09:14 Dose: 800 mg Documented By: HUGH Methylprednisolone Sodium Succinate (Methylprednisolone Sod Succ 40 Mg/Ml Vial) 40 mg IVPUSH Q24H [facility] Last Admin: 10/01/22 11:03 Dose: 40 mg Documented By: HUGH Metoprolol Succinate (Metoprolol Succinate Er 50 Mg Tab.Er.24h) 50 mg PO DAILY [facility]; Protocol Last Admin: 10/01/22 09:06 Dose: 50 mg Documented By: HUGH Nicotine (Nicotine 21 Mg Patch.Td24) 21 mg TRANSDERMA DAILY [facility] Last Admin: 10/01/22 09:07 Dose: 21 mg Documented By: HUGH Ondansetron HCl (Ondansetron Hcl 4 Mg/2 Ml Vial) 4 mg IVPUSH Q8H PRN PRN Reason: Nausea and Vomiting Last Admin: 09/30/22 15:37 Dose: 4 mg Documented By: ARNOLD Pharmacy Consult (Consult Rx Perform Med Rec) 1 each MISCELLANE ONCE PRN PRN Reason: Consult order Pharmacy Consult (Consult Rx Etoh Phenob Im/Po) 1 each MISCELLANE ONCE PRN; Protocol PRN Reason: Consult order Sodium Chloride (0.9 % Sodium Chloride Flush 3 Ml Syringe) 3 ml IVFLUSH QSHIFT [facility] Last Admin: 10/01/22 09:09 Dose: Not Given Documented By: HUGH Non-Admin Reason: IV Running Thiamine HCl (Thiamine Hcl 100 Mg Tablet) 100 mg PO DAILY [facility] Last Admin: 10/01/22 09:06 Dose: 100 mg Documented By: HUGH Trazodone HCl (Trazodone Hcl 50 Mg Tablet) 150 mg PO BEDTIME [facility] Last Admin: 09/30/22 21:16 Dose: 150 mg Documented By: RANDALL Labs 10/01/22 06:41 10/01/22 06:41 Labs: Laboratory Results - last 24 hr 09/30/22 09/30/22 10/01/22 16:46 19:28 06:41 MCV 89.2 MCH 27.9 MCHC 31.3 RDW 14.0 Plt Count 368 MPV 8.9 L Absolute Nucleated RBC 0.000 Nucleated RBC % (auto) 0.0 Anion Gap Estim Creat Clear Calc Estimated GFR POC Glucose 151 H 102 Fasting Glucose Calcium Magnesium 10/01/22 10/01/22 10/01/22 06:41 07:40 11:19 MCV MCH MCHC RDW Plt Count MPV Absolute Nucleated RBC Nucleated RBC % (auto) Anion Gap 14 Estim Creat Clear Calc 176.9 Estimated GFR > 60 POC Glucose 108 137 H Fasting Glucose 104 H Calcium 7.5 L Magnesium 1.4 L* Assessment and Plan (1) Hypomagnesemia: Status: Acute (2) Alcohol withdrawal: Status: Acute (3) Acute on chronic pancreatitis: Status: Acute (4) Asthma with exacerbation: Status: Acute Plan 52 yo M with a PMH of DM, HTN, prior alcoholic pancreatitis who presents to the ED with comlpaints of shortness of breath and abdominal pain. He is diagnosed with asthma/copd exacerbation and acute alcohol pancreatitis. Acute alcoholic pancreatitis still having significant pain and reporting nausea and decrease oral intake increase IVF, pain control, not eating much still with pain, low fat diet monitor lytes alcohol dependence with withdrawal phenobarb completed discussed about the need to quit completely Suspected alcohol gastritis IV pepcid BID mild intermittent Asthma/copd exacerbation improved after rx in the ED updrafts and prednisone completed tobacco cessation encouraged HypoMg replace and monitor Lactic acidosis suspected due albuterol / metformin use no definite source of infection, monitor for now; no evidence of severe sepsis at this time DM hold orals, use sliding scale Full Code DVT pptx, Lovenox reason for continued hospitalization: awaiting tolerance of po Time Spent With Patient Time: Total time managing care of this patient today ____ minutes. Quality Stroke Does the patient have a stroke diagnosis?: No VTE Prior VTE?: No VTE Risk Level:: Medical - moderate - high VTE Device Contraindication: Treatment Not Indicated VTE Drug Contraindication: N/A - Med Ordered
[2022-10-01 16:28] LABS: Glucose, Whole Blood 218 mg/dL (60-115)
[2022-10-01] MEDS: Insulin Lispro 100 UNIT/ML 3 ML VIAL SUBCUT ×2 (17:06→21:37)
[2022-10-01 20:00] VITALS: BP 161/77; PULSE 82; RESP 17; TEMP 36.7; O2SAT 96
[2022-10-01 21:16] LABS: Glucose, Whole Blood 264 mg/dL (60-115)
[2022-10-01] MEDS: traZODone HCL 50 MG TABLET 150 MG PO (21:18)
[2022-10-01 23:46] VITALS: RESP 18
[2022-10-01] MEDS: ondansetron HCL 4 MG/2 ML VIAL IVPUSH (23:58)
[2022-10-02] MEDS: Lactated Ringers 1,000 ML 150 ML IVCONT (02:13)
[2022-10-02 03:03] VITALS: BP 149/85; PULSE 87; RESP 18; TEMP 36.4; O2SAT 91
[2022-10-02] MEDS: HYDROmorphone HCl 1 MG/ML SYRINGE IVPUSH ×2 (04:39→08:54)
[2022-10-02 04:50] VITALS: RESP 24; O2SAT 92
[2022-10-02 06:04] LABS: Anion Gap 11 (12-20); Blood Urea Nitrogen < 3 mg/dL (9-16); Calcium 7.8 mg/dL (8.4-10.2); Carbon Dioxide 31 mmol/L (22-29); Chloride 97 mmol/L (96-108); Creatinine Clr Calc Pharmacy 160.8; Estimated Glomerular Filt Rate > 60; Glucose Random 123 mg/dL (60-115); Sodium 136 mmol/L (135-145)
--- NOTE | 2022-10-02 06:12 | PM.EVENT ---
Event Note Date of Service: 10/02/22 Event Note: patient complaining of having difficulty breathing, has shallow respiration, with tachypnea, found to be satting 85% on room air. Placed on 2 L of oxygen now satting 91-92%. Chest x-ray shows pleural effusion as well as increase infiltrate. At this time will start patient on antibiotics, will obtain BNP as patient has no history of CHF therefore I will hold off on Lasix Time Spent With Patient Time: Total time managing care of this patient today ____ minutes.
[2022-10-02 07:42] VITALS: BP 141/82; PULSE 85; RESP 18; TEMP 36.4; O2SAT 93
[2022-10-02 07:51] LABS: Glucose, Whole Blood 147 mg/dL (60-115)
[2022-10-02 08:00] LABS: Lactic Acid 0.8 mmol/L (0.5-2.0)
[2022-10-02] MEDS: Nicotine 21 MG PATCH.TD24 TRANSDERMA (08:05)
[2022-10-02] MEDS: Thiamine HCL 100 MG TABLET PO (08:05)
[2022-10-02] MEDS: Metoprolol Succinate ER 50 MG TAB.ER.24H PO (08:05)
[2022-10-02] MEDS: guaiFENesin LA 600 MG TAB.ER.12H PO (08:05)
[2022-10-02] MEDS: amLODIPine Besylate 5 MG TABLET PO (08:05)
[2022-10-02] MEDS: Magnesium Oxide 400 MG TABLET 800 MG PO ×2 (08:05→16:37)
[2022-10-02] MEDS: Folic Acid 1 MG TABLET PO (08:05)
[2022-10-02] MEDS: Atorvastatin Calcium 40 MG TABLET PO (08:05)
[2022-10-02] MEDS: Ferrous Sulfate 324 MG TABLET.DR PO (08:05)
[2022-10-02] MEDS: Famotidine/PF 20 MG/2 ML VIAL IVPUSH (08:06)
[2022-10-02] MEDS: Piperacillin Sodium/Tazobactam 4.5 GM in 0.9 % Sodium Chloride 100 ML IV ×3 (08:07→18:36)
[2022-10-02] MEDS: 0.9 % Sodium Chloride Flush 3 ML SYRINGE IVFLUSH ×3 (08:20→20:36)
[2022-10-02 09:00] LABS: Procalcitonin 0.05 ng/mL
[2022-10-02 09:04] LABS: B Type Natriuretic Peptide 291 pg/mL (<100)
--- NOTE | 2022-10-02 09:53 | PHA.PROG ---
Admission Date/Time: September 23, 2022 09:06 IndicationRespiratory Infection Weight in k.915 kg Adjusted body weight in K.226 [place] body weight in K.184 Obesity Dosing Indication % IBW: not obese Serum Creatinine - Last 168 Hours 09/26/22 09/27/22 09/28/22 06:05 05:44 05:23 Creatinine 0.58 0.54 0.57 09/29/22 09/30/22 10/01/22 05:54 06:56 06:41 Creatinine 0.53 0.54 0.50 10/02/22 05:10 Creatinine 0.55 Estimated CrCl and GFR - Last 168 Hours 09/26/22 09/27/22 09/28/22 06:05 05:44 05:23 Estim Creat Clear Calc 152.5 163.8 155.2 Estimated GFR > 60 > 60 > 60 09/29/22 09/30/22 10/01/22 05:54 06:56 06:41 Estim Creat Clear Calc 166.9 163.8 176.9 Estimated GFR > 60 > 60 > 60 10/02/22 05:10 Estim Creat Clear Calc 160.8 Estimated GFR > 60 Vancomycin Loading Dose: 2000 mg Current Vancomycin Dosing Regimen: 1250 mg Q12H Vancomycin Monitoring using AUC goal of 400 - 600 range with trough as surrogate marker: 463 mg/L/hr Date and Time for next Vancomycin Level to be drawn: 10/03 @1999 Pharmacist Comments on Vancomycin Plan: Q12H dosing due to age Vancomycin dosing will take advantage of [employer] as a clinical decision support tool that uses Bayesian modeling to calculate individual patient's pharmacokinetic parameters and forecast the patient's drug concentration time course with the target goal AUC 24 range of 400 - 600 mg/L/hr.
[2022-10-02] MEDS: Enoxaparin Sodium 40 MG/0.4 ML SYRINGE SUBCUT (10:35)
[2022-10-02] MEDS: methylPREDNISolone Sod Succ 40 MG/ML VIAL IVPUSH (10:58)
[2022-10-02 11:28] LABS: Glucose, Whole Blood 163 mg/dL (60-115)
--- NOTE | 2022-10-02 11:34 | MHC.CM.PN ---
PER ROUNDS, PATIENT WITH SIGNIFICANT PAIN AND WILL NEED REPEAT XRAY. NO PLAN FOR DC TODAY
[2022-10-02] MEDS: Insulin Lispro 100 UNIT/ML 3 ML VIAL SUBCUT ×3 (12:10→20:36)
--- NOTE | 2022-10-02 12:16 | HO.PM.IMPN ---
Subjective Subjective Date of Service: 10/02/22 Interval History: the patient was seen and evaluated this morning Laying in bed, still complaining of pain and nausea able to tolerate small amount of food reporting SOB and change in his voice No reported other overnight events. Review of Systems Review of Systems: Yes all other systems are reviewed and are negative Physical Exam Vital Signs: Vital Signs: Last Vital Signs Temp 97.6 F 10/02/22 07:42 Pulse 85 10/02/22 07:42 Resp 18 10/02/22 07:42 BP 141/82 H 10/02/22 07:42 Pulse Ox 93 10/02/22 07:42 O2 Del Method 10/02/22 07:42 O2 Flow Rate 3 10/02/22 04:50 BMI result Body Mass Index 29.0 Const: Other: Constitutional : Awake, interactive, not in distress Neck : Normal inspection, Supple Cardiovascular : RRR, no JVP, trace lower extremity edema Respiratory : fair bilateral air entry, decreased at the bases. fine crackles. no wheezing noted Gastrointestinal: soft, lax, Normal bowel sounds, Epigastric tenderness with superficial palpation Skin : Warm, Dry Neurological : Alert & oriented x3, No focal deficit Objective Data Active Medications Amlodipine Besylate (Amlodipine Besylate 5 Mg Tablet) 5 mg PO DAILY [facility]; Protocol Last Admin: 10/02/22 08:05 Dose: 5 mg Documented By: JOHN Atorvastatin Calcium (Atorvastatin Calcium 40 Mg Tablet) 40 mg PO DAILY [facility] Last Admin: 10/02/22 08:05 Dose: 40 mg Documented By: JOHN Benzonatate (Benzonatate 100 Mg Capsule) 200 mg PO TID PRN PRN Reason: cough Last Admin: 10/01/22 14:02 Dose: 200 mg Documented By: HUGH Albuterol Sulfate 2.5 mg/ (Ipratropium [place] 0.5 mg) 0 mg INHALE RBID PRN PRN Reason: Shortness of Breath Last Admin: 10/02/22 04:52 Dose: 1 each Documented By: STACY Enoxaparin Sodium (Enoxaparin Sodium 40 Mg/0.4 Ml Syringe) 40 mg SUBCUT Q24H [facility] Last Admin: 10/02/22 10:35 Dose: 40 mg Documented By: JOHN Famotidine (Famotidine/Pf 20 Mg/2 Ml Vial) 20 mg IVPUSH BID [facility] Last Admin: 10/02/22 08:06 Dose: 20 mg Documented By: JOHN Ferrous Sulfate (Ferrous Sulfate 324 Mg Tablet.Dr) 324 mg PO DAILY [facility] Last Admin: 10/02/22 08:05 Dose: 324 mg Documented By: JOHN Folic Acid (Folic Acid 1 Mg Tablet) 1 mg PO DAILY [facility] Last Admin: 10/02/22 08:05 Dose: 1 mg Documented By: JOHN Guaifenesin (Guaifenesin La 600 Mg Tab.Er.12h) 600 mg PO BID [facility] Last Admin: 10/02/22 08:05 Dose: 600 mg Documented By: JOHN Hydromorphone HCl (Hydromorphone Hcl 1 Mg/Ml Syringe) 1.5 mg IVPUSH Q4H PRN; Protocol PRN Reason: Pain, Severe (Pain Scale 7-10) Lactated Ringer's (Lr) 1,000 mls @ 150 mls/hr IVCONT .Q6H40M [facility] Last Admin: 10/02/22 02:13 Dose: 150 mls/hr Documented By: DIEGO Vancomycin HCl 1,250 mg/ (Sodium Chloride) 250 mls @ 166.667 mls/hr IV Q12H [facility] Piperacillin Sod/Tazobactam (Sod 4.5 gm/ Sodium Chloride) 100 mls @ 200 mls/hr IV Q6H [facility] Last Infusion: 10/02/22 08:54 Dose: 0 mls/hr Documented By: JOHN Insulin Human Lispro (Insulin Lispro 100 Unit/Ml 3 Ml Vial) 0 unit SUBCUT QIDACHS [facility]; Protocol Last Admin: 10/02/22 08:07 Dose: Not Given Documented By: JOHN Non-Admin Reason: No Insulin Coverage [facility] ([facility] Mg Tablet) [facility] Last Admin: 10/02/22 08:05 Dose: 800 mg Documented By: JOHN Methylprednisolone Sodium Succinate (Methylprednisolone Sod Succ 40 Mg/Ml Vial) 40 mg IVPUSH Q24H [facility] Last Admin: 10/02/22 10:58 Dose: 40 mg Documented By: JOHN Metoprolol Succinate (Metoprolol Succinate Er 50 Mg Tab.Er.24h) 50 mg PO DAILY [facility]; Protocol Last Admin: 10/02/22 08:05 Dose: 50 mg Documented By: JOHN Nicotine (Nicotine 21 Mg Patch.Td24) 21 mg TRANSDERMA DAILY [facility] Last Admin: 10/02/22 08:05 Dose: 21 mg Documented By: JOHN Ondansetron HCl (Ondansetron Hcl 4 Mg/2 Ml Vial) 4 mg IVPUSH Q8H PRN PRN Reason: Nausea and Vomiting Last Admin: 10/01/22 23:58 Dose: 4 mg Documented By: DIEGO Pharmacy Consult (Consult Rx Perform Med Rec) 1 each MISCELLANE ONCE PRN PRN Reason: Consult order Pharmacy Consult (Consult Rx Etoh Phenob Im/Po) 1 each MISCELLANE ONCE PRN; Protocol PRN Reason: Consult order Pharmacy Consult (Consult Rx Vancomycin Dosing) 1 each MISCELLANE DAILY PRN PRN Reason: Consult order Sodium Chloride (0.9 % Sodium Chloride Flush 3 Ml Syringe) 3 ml IVFLUSH QSHIFT [facility] Last Admin: 10/02/22 08:20 Dose: 3 ml Documented By: JOHN Thiamine HCl (Thiamine Hcl 100 Mg Tablet) 100 mg PO DAILY [facility] Last Admin: 10/02/22 08:05 Dose: 100 mg Documented By: JOHN Trazodone HCl (Trazodone Hcl 50 Mg Tablet) 150 mg PO BEDTIME [facility] Last Admin: 10/01/22 21:18 Dose: 150 mg Documented By: MALCOLMQC Labs 10/01/22 06:41 10/02/22 05:10 Labs: Laboratory Results - last 24 hr 10/01/22 10/01/22 10/02/22 16:16 21:02 05:10 Anion Gap 11 L Estim Creat Clear Calc 160.8 Estimated GFR > 60 POC Glucose 218 H 264 H Random Glucose 123 H Lactic Acid Calcium 7.8 L B-Natriuretic Peptide Procalcitonin 10/02/22 10/02/22 10/02/22 07:34 07:34 07:34 Anion Gap Estim Creat Clear Calc Estimated GFR POC Glucose Random Glucose Lactic Acid 0.8 Calcium B-Natriuretic Peptide 291 H Procalcitonin 0.05 10/02/22 10/02/22 07:41 11:15 Anion Gap Estim Creat Clear Calc Estimated GFR POC Glucose 147 H 163 H Random Glucose Lactic Acid Calcium B-Natriuretic Peptide Procalcitonin Assessment and Plan (1) Acute on chronic pancreatitis: Status: Acute (2) Pneumonia: Status: Acute (3) Fluid overload: Status: Acute (4) Pleural effusion: Status: Acute Plan 52 yo M with a PMH of DM, HTN, prior alcoholic pancreatitis who presents to the ED with comlpaints of shortness of breath and abdominal pain. He is diagnosed with asthma/copd exacerbation and acute alcohol pancreatitis. Hypoxia 2/2 pneumonia Chest x-ray concerning for possible infiltrate with effusion Started on broad-spectrum antibiotics Wean O2 down as tolerated Pleural effusion 2/2 Fluid overload 2/2 IVF for pancreatitis treatment No Hx of CHF before elevated BNP Discontinue fluids and give some Lasix Monitor response Acute alcoholic pancreatitis still having significant pain and reporting nausea and decrease oral intake DC IVF, pain control, not eating much still with pain, low fat diet monitor lytes alcohol dependence with withdrawal phenobarb completed discussed about the need to quit completely Suspected alcohol gastritis IV pepcid BID mild intermittent Asthma/copd exacerbation improved after rx in the ED updrafts and prednisone completed tobacco cessation encouraged HypoMg replace and monitor Lactic acidosis suspected due albuterol / metformin use no definite source of infection, monitor for now; no evidence of severe sepsis at this time DM hold orals, use sliding scale Full Code DVT pptx, Lovenox reason for continued hospitalization: awaiting tolerance of po Time Spent With Patient Time: Total time managing care of this patient today ____ minutes. Quality Stroke Does the patient have a stroke diagnosis?: No VTE Prior VTE?: No VTE Risk Level:: Medical - moderate - high VTE Device Contraindication: Treatment Not Indicated VTE Drug Contraindication: N/A - Med Ordered
[2022-10-02] MEDS: Furosemide 20 MG/2 ML VIAL IVPUSH (12:47)
--- NOTE | 2022-10-02 12:55 | P.CDIC_ITS ---
CDI Concurrent Query Documentation Clarification: PHYSICIAN'S DOCUMENTATION REQUEST Date of Query: 10/02/22 1255 Patient Name: Dontrell Azevedo Admit Date: 09/23/22 Dear Doctor, A review of the medical record indicates additional documentation may be needed. Please review below and update the documentation accordingly. Clinical Indicators: A diagnosis of pneumonia (unspecified) was documented on 10/02/22 but lacks specificity. Is there further specificity that correlates with the findings below: Risk Factors/Clinical Indicators/Treatments Per provider note on 10/02: Hypoxia 2/2 pneumonia Chest x-ray concerning for possible infiltrate with effusion Started on broad-spectrum antibiotics Laying? in bed, still complaining of pain and nausea able to tolerate small amount of food reporting SOB and change in his voice Per provider progress notes: Patient reports a productive cough, SOB, nausea, & dry heaves. Per chest x-ray on 10/02: Increased left basilar opacity which could represent atelectasis or pneumonia Based on the above, could you clarify in the Progress Notes further specificity regarding the most likely type of pneumonia you suspect you are treating (even if specific organism may not be known)? * Aspiration pneumonia - indicate substance such as food or vomitus, oils, or other solids or liquids * Bacterial pneumonia * Viral pneumonia - indicate parainfluenza, RSV, adenovirus, influenza (indicate type), etc. * Other type * Unable to determine Use of terms such as suspected, likely, concern for, or probable (associated with a specific diagnosis that is being evaluated, monitored, or treated as if it exists) are acceptable and can be coded in the inpatient setting, when documented at the time of discharge. Thank you, Yoly Thompson MS, RN, CCRN Extension: [phone] Please use your independent medical judgment in providing your response. THIS QUERY IS PART OF THE PERMANENT MEDICAL RECORD Provider Response: Other Other Diagnosis: suspected bacterial pneumonia
--- NOTE | 2022-10-02 13:14 | P.CDIC_ITS ---
CDI Concurrent Query Documentation Clarification: PHYSICIAN'S DOCUMENTATION REQUEST Date of Query: 10/02/22 1314 Patient Name: Dontrell Azevedo Admit Date: 09/23/22 Dear Doctor, A review of the medical record indicates additional documentation may be needed. Please review below and update the documentation accordingly. Clinical Indicators: Is there a diagnosis that correlates with these lab findings below: Risk Factors/Clinical Indicators/Treatments Labs: Potassium on 10/02: 3.0 Based on the above, could you clarify in the Progress Notes the appropriate diagnosis, if significant, that supports the above abnormalities and additional evaluation, monitoring, and/or treatment rendered: * Hypokalemia * Other (please specify) * Unable to determine Use of terms such as suspected, likely, concern for, or probable (associated with a specific diagnosis that is being evaluated, monitored, or treated as if it exists) are acceptable and can be coded in the inpatient setting, when documented at the time of discharge. Thank you, Yoly Thompson MS, RN, CCRN Extension: [phone] Please use your independent medical judgment in providing your response. THIS QUERY IS PART OF THE PERMANENT MEDICAL RECORD Provider Response: Other Other Diagnosis: Hypokalemia
[2022-10-02] MEDS: HYDROmorphone HCl 1 MG/ML SYRINGE 1.5 MG IVPUSH ×3 (13:29→23:23)
[2022-10-02 16:00] VITALS: BP 133/79; PULSE 81; RESP 18; TEMP 36; O2SAT 92
[2022-10-02 16:20] LABS: Glucose, Whole Blood 206 mg/dL (60-115)
[2022-10-02] MEDS: Potassium Chloride Packet 20 MEQ PACKET 40 MEQ PO (16:35)
[2022-10-02 20:00] VITALS: BP 141/88; PULSE 85; RESP 18; TEMP 36.6; O2SAT 92
[2022-10-02 20:05] VITALS: PULSE 86; RESP 14; O2SAT 94
[2022-10-02 20:10] LABS: Glucose, Whole Blood 155 mg/dL (60-115)
[2022-10-02] MEDS: vancomycin HCL 1,250 MG in 0.9 % Sodium Chloride 250 ML 166.67 MG IV (21:48)
[2022-10-03] VITALS (7 sets, daily range): BP systolic 124–143; BP diastolic 62–83; PULSE 74–86; RESP 12–20; TEMP 36.3–36.6; O2SAT 90–96
[2022-10-03] MEDS: guaiFENesin LA 600 MG TAB.ER.12H PO ×3 (00:17→21:00)
[2022-10-03] MEDS: traZODone HCL 50 MG TABLET 150 MG PO ×2 (00:17→22:01)
[2022-10-03] MEDS: Piperacillin Sodium/Tazobactam 4.5 GM in 0.9 % Sodium Chloride 100 ML IV ×4 (01:22→21:58)
[2022-10-03] MEDS: Omeprazole 40 MG CAPSULE.DR PO (06:25)
[2022-10-03] MEDS: HYDROmorphone HCl 1 MG/ML SYRINGE 1.5 MG IVPUSH ×4 (06:33→21:59)
--- NOTE | 2022-10-03 07:00 | CA_ITS ---
Transthoracic Echocardiogram Patient (Last, First, Middle): Dontrell Azevedo, Gender: Male Date of : 1970 Age: 52 Procedure Date: 10/03/2022 Procedure Type: Transthoracic Echocardiogram Location: S3W Height: 170.18 cm Weight: 83.92 kg BSA: 1.96 m2 Heart Rate: 77 bpm BP: 141 / 70 mmHg Casting Finisher: SB Referring MD: Brenda Brenner MD Symptoms: new onset heart failure Study Quality: Adequate ECG Rhythm: Sinus Conclusions: - Normal left ventricular size, thickness, systolic function, and wall motion. The visually estimated ejection fraction is between 55-60%. Diastolic function is normal for age. - Mildly increased right ventricular cavity size. There is normal right ventricular systolic function. - There is mild dilatation of the sinuses of Valsalva measuring 3.80 cm. Findings Left Ventricle Normal left ventricular size, thickness, systolic function, and wall motion. The visually estimated ejection fraction is between 55-60%. Diastolic function is normal for age. Right Ventricle Mildly increased right ventricular cavity size. There is normal right ventricular systolic function. Atria The left atrium is normal in size. The right atrium is mildly dilated. Aortic Valve There is a normal trileaflet aortic valve. There is mild calcification of the aortic valve. There is no aortic valve stenosis. There is no aortic valve regurgitation. Mitral Valve Normal mitral valve structure and function. There is no mitral valve regurgitation. There is no mitral valve stenosis. Pulmonic Valve The pulmonic valve was not well visualized. Tricuspid Valve Normal tricuspid valve structure and function. There is trace tricuspid valve regurgitation. Normal right atrial pressure. Great Vessels There is mild dilatation of the sinuses of Valsalva measuring 3.80 cm. The visualized portions of the pulmonary artery and branches are normal. Venous The inferior vena cava is normal in size and collapses greater than 50% with inspiration. Pericardium/Pleural There is no evidence of pericardial effusion. Prior Study Comparison No prior study available for comparison. Measurements 2D Linear Measurements IVSd: 1.07 0.6-0.9/0.6-1.0 cm LVIDd: 5.01 3.9-5.3/4.2-5.9 cm LVIDd Index: 2.56 2.4-3.2/2.2-3.1 cm/m2 LVIDs: 3.13 2.0-3.6 cm LVPWd: 0.62 0.7-1.1 cm LA Diam: 3.20 2.7-3.8/3.0-4.0 cm LAIDs Index: 1.63 1.5-2.3 cm/m2 LV Mass: 182.15 67-162/88-224 g LV Mass Index: 92.93 43-95/49-115 g/m2 LVOT Diam: 2.50 3.0+(-)1.3 cm 2D Systolic Function EF 4C: 57.50 >55% Mitral Valve MV Pk E: 0.60 MV PK A: 0.52 MV Decel Time: 225.00 E/A: 1.20 E'Lateral: 7.94 E'Medial: 7.72 E/E' Med: 7.80 E/E' Lat: 7.60 PHT: 66.00 MVA PHT: 3.33 Decel [place]: 2.68 Aortic Valve AoV Pk Navin: 0.91 AoV Pk Grad: 3.00 ERASTO: 4.60 LVOT LVOT Pk Navin: 0.86 LVOT Mn Navin: 0.61 LVOT VTI: 0.19 LVOT Pk Grad: 3.00 LVOT Mn Grad: 2.00 LVOT Diam: 2.50 LVOT Area: 4.91 Diastolic Function MV Pk E: 0.60 MV Pk A: 0.52 E/A: 1.20 E'Medial: 7.72 E/E' Med: 7.80 E' Laterial: 7.94 E/E' Lat: 7.60 Right Ventricle TAPSE (mm): 22.60 TVS' Navin: 15.70 Tricuspid Valve RA Press: 8.00 Great Vessels Aorta Sinus of Valsalva: 3.80 2.0-3.5 cm Ao Asc: 3.20 2.1-3.4 cm Pulmonary Veins Pulm Vein S/D 1.80 Pulmonary Valve PV Pk Navin: 0.77 Peak PV Grad: 2.00 Updated in Other Vendor System with Status of Final Fernando Novoa MD electronically signed on 10/04/2022 12:11:53 AM with status of Final
[2022-10-03 07:31] LABS: Anion Gap 15 (12-20); Blood Urea Nitrogen < 3 mg/dL (9-16); Calcium 7.9 mg/dL (8.4-10.2); Carbon Dioxide 31 mmol/L (22-29); Chloride 98 mmol/L (96-108); Estimated Glomerular Filt Rate > 60; Glucose Random 150 mg/dL (60-115); Sodium 141 mmol/L (135-145)
[2022-10-03] MEDS: Thiamine HCL 100 MG TABLET PO (07:31)
[2022-10-03] MEDS: Metoprolol Succinate ER 50 MG TAB.ER.24H PO (07:31)
[2022-10-03] MEDS: Atorvastatin Calcium 40 MG TABLET PO (07:31)
[2022-10-03] MEDS: Folic Acid 1 MG TABLET PO (07:31)
[2022-10-03] MEDS: Ferrous Sulfate 324 MG TABLET.DR PO (07:31)
[2022-10-03] MEDS: 0.9 % Sodium Chloride Flush 3 ML SYRINGE IVFLUSH ×3 (07:32→21:59)
[2022-10-03] MEDS: Nicotine 21 MG PATCH.TD24 TRANSDERMA (07:32)
[2022-10-03] MEDS: Insulin Lispro 100 UNIT/ML 3 ML VIAL SUBCUT ×3 (07:33→21:00)
[2022-10-03 07:34] LABS: Glucose, Whole Blood 154 mg/dL (60-115)
[2022-10-03] MEDS: amLODIPine Besylate 5 MG TABLET PO (07:34)
[2022-10-03] MEDS: Potassium Chloride Packet 20 MEQ PACKET 40 MEQ PO ×2 (07:59→10:35)
[2022-10-03] MEDS: Enoxaparin Sodium 40 MG/0.4 ML SYRINGE SUBCUT (09:01)
[2022-10-03] MEDS: Magnesium Oxide 400 MG TABLET 800 MG PO ×2 (09:07→17:50)
[2022-10-03] MEDS: methylPREDNISolone Sod Succ 40 MG/ML VIAL IVPUSH (10:34)
[2022-10-03] MEDS: vancomycin HCL 1,250 MG in 0.9 % Sodium Chloride 250 ML 166 MG IV (10:35)
[2022-10-03] MEDS: Furosemide 40 MG/4 ML VIAL IVPUSH (11:33)
[2022-10-03 11:45] LABS: Glucose, Whole Blood 134 mg/dL (60-115)
--- NOTE | 2022-10-03 12:20 | P.PNIM_ITS ---
Subjective Subjective Date of Service: 10/03/22 Interval History: the patient was seen and evaluated this morning still complaining of pain and nausea tolerate small amount of food improving SOB and edema No reported other overnight events. Review of Systems Review of Systems: Yes all other systems are reviewed and are negative Physical Exam Vital Signs: Vital Signs: Last Vital Signs Temp 97.7 F 10/03/22 07:23 Pulse 74 10/03/22 11:24 Resp 18 10/03/22 07:23 BP 124/80 10/03/22 11:24 Pulse Ox 94 10/03/22 11:24 O2 Del Method 10/03/22 11:24 O2 Flow Rate 2 10/02/22 16:00 BMI result Body Mass Index 29.0 Const: Other: Constitutional : Awake, interactive, not in distress Neck : Normal inspection, Supple Cardiovascular : RRR, no JVP, trace lower extremity edema Respiratory : fair bilateral air entry, decreased at the bases. fine crackles. no wheezing noted Gastrointestinal: soft, lax, Normal bowel sounds, Epigastric tenderness with superficial palpation Skin : Warm, Dry Neurological : Alert & oriented x3, No focal deficit Objective Data Active Medications Amlodipine Besylate (Amlodipine Besylate 5 Mg Tablet) 5 mg PO DAILY [facility]; Keena col Last Admin: 10/03/22 07:34 Dose: 5 mg Documented By: JOHN Atorvastatin Calcium (Atorvastatin Calcium 40 Mg Tablet) 40 mg PO DAILY [facility] Last Admin: 10/03/22 07:31 Dose: 40 mg Documented By: JOHN Benzonatate (Benzonatate 100 Mg Capsule) 200 mg PO TID PRN PRN Reason: cough Last Admin: 10/01/22 14:02 Dose: 200 mg Documented By: HUGH Albuterol Sulfate 2.5 mg/ (Ipratropium [place] 0.5 mg) 0 mg INHALE RBID PRN PRN Reason: Shortness of Breath Last Admin: 10/03/22 06:30 Dose: 1 each Documented By: JAVED Enoxaparin Sodium (Enoxaparin Sodium 40 Mg/0.4 Ml Syringe) 40 mg SUBCUT Q24H [facility] Last Admin: 10/03/22 09:01 Dose: 40 mg Documented By: JOHN Ferrous Sulfate (Ferrous Sulfate 324 Mg Tablet.) 324 mg PO DAILY [facility] Last Admin: 10/03/22 07:31 Dose: 324 mg Documented By: JOHN Folic Acid (Folic Acid 1 Mg Tablet) 1 mg PO DAILY [facility] Last Admin: 10/03/22 07:31 Dose: 1 mg Documented By: JOHN Guaifenesin (Guaifenesin La 600 Mg Tab.Er.12h) 600 mg PO BID [facility] Last Admin: 10/03/22 07:31 Dose: 600 mg Documented By: JOHN Hydromorphone HCl (Hydromorphone Hcl 1 Mg/Ml Syringe) 1.5 mg IVPUSH Q4H PRN; Protocol PRN Reason: Pain, Severe (Pain Scale 7-10) Last Admin: 10/03/22 10:38 Dose: 1.5 mg Documented By: JOHN Vancomycin HCl 1,250 mg/ (Sodium Chloride) 250 mls @ 166.667 mls/hr IV Q12H [facility] Last Admin: 10/03/22 10:35 Dose: 166 mls/hr Documented By: JOHN Piperacillin Sod/Tazobactam (Sod 4.5 gm/ Sodium Chloride) 100 mls @ 200 mls/hr IV Q6H [facility] Last Infusion: 10/03/22 07:23 Dose: 0 mls/hr Documented By: JOHN Insulin Human Lispro (Insulin Lispro 100 Unit/Ml 3 Ml Vial) 0 unit SUBCUT QIDACHS [facility]; Protocol Last Admin: 10/03/22 11:33 Dose: Not Given Documented By: JOHN Non-Admin Reason: not indicated per protocol Magnesium Oxide (Magnesium Oxide 400 Mg Tablet) 800 mg PO BIDPC [facility] Last Admin: 10/03/22 09:07 Dose: 800 mg Documented By: JOHN Methylprednisolone Sodium Succinate (Methylprednisolone Sod Succ 40 Mg/Ml Vial) 40 mg IVPUSH Q24H [facility] Last Admin: 10/03/22 10:34 Dose: 40 mg Documented By: JOHN Metoprolol Succinate (Metoprolol Succinate Er 50 Mg Tab.Er.24h) 50 mg PO DAILY [facility]; Protocol Last Admin: 10/03/22 07:31 Dose: 50 mg Documented By: JOHN Nicotine (Nicotine 21 Mg Patch.Td24) 21 mg TRANSDERMA DAILY [facility] Last Admin: 10/03/22 07:32 Dose: 21 mg Documented By: JOHN Omeprazole (Omeprazole 40 Mg Capsule.Dr) 40 mg PO DAILY@0630 [facility] Last Admin: 10/03/22 06:25 Dose: 40 mg Documented By: MICHELLE Ondansetron HCl (Ondansetron Hcl 4 Mg/2 Ml Vial) 4 mg IVPUSH Q8H PRN PRN Reason: Nausea and Vomiting Last Admin: 10/01/22 23:58 Dose: 4 mg Documented By: DIEGO Pharmacy Consult (Consult Rx Perform Med Rec) 1 each MISCELLANE ONCE PRN PRN Reason: Consult order Pharmacy Consult (Consult Rx Etoh Phenob Im/Po) 1 each MISCELLANE ONCE PRN; Protocol PRN Reason: Consult order Pharmacy Consult (Consult Rx Vancomycin Dosing) 1 each MISCELLANE DAILY PRN PRN Reason: Consult order Sodium Chloride (0.9 % Sodium Chloride Flush 3 Ml Syringe) 3 ml IVFLUSH QSHIFT [facility] Last Admin: 10/03/22 07:32 Dose: 3 ml Documented By: JOHN Thiamine HCl (Thiamine Hcl 100 Mg Tablet) 100 mg PO DAILY [facility] Last Admin: 10/03/22 07:31 Dose: 100 mg Documented By: JOHN Trazodone HCl (Trazodone Hcl 50 Mg Tablet) 150 mg PO BEDTIME [facility] Last Admin: 10/03/22 00:17 Dose: 150 mg Documented By: MICHELLE Labs 10/01/22 06:41 10/03/22 06:41 Labs: Laboratory Results - last 24 hr 10/02/22 10/02/22 10/03/22 16:10 20:01 06:41 Anion Gap 15 Estim Creat Clear Calc 145.0 Estimated GFR > 60 POC Glucose 206 H 155 H Random Glucose 150 H Calcium 7.9 L 10/03/22 10/03/22 07:19 11:29 Anion Gap Estim Creat Clear Calc Estimated GFR POC Glucose 154 H 134 H Random Glucose Calcium Microbiology Microbiology Results: Microbiology 10/02/22 07:35 Blood Culture - Preliminary Blood - Venous No growth after 24 hours. 10/02/22 07:34 Blood Culture - Preliminary Blood - Venous No growth after 24 hours. Assessment and Plan (1) Pleural effusion: Status: Acute (2) Fluid overload: Status: Acute (3) Acute on chronic pancreatitis: Status: Acute (4) Pneumonia: Status: Acute Plan 52 yo M with a PMH of DM, HTN, prior alcoholic pancreatitis who presents to the ED with comlpaints of shortness of breath and abdominal pain. He is diagnosed with asthma/copd exacerbation and acute alcohol pancreatitis. Hypoxia 2/2 pneumonia improving Chest x-ray concerning for possible infiltrate with effusion continue broad-spectrum antibiotics Wean O2 down as tolerated Pleural effusion 2/2 Fluid overload 2/2 IVF for pancreatitis treatment No Hx of CHF before, to evaluate by ECHO elevated BNP suggestive of possible underlyin CHF to give Lasix Monitor response Acute on chronic alcoholic pancreatitis still having significant pain and reporting nausea and decrease oral intake DC IVF, pain control, not eating much still with pain, low fat diet monitor lytes alcohol dependence with withdrawal phenobarb completed discussed about the need to quit completely Suspected alcohol gastritis Omeprazole mild intermittent Asthma/copd exacerbation improved after rx in the ED updrafts and prednisone completed tobacco cessation encouraged HypoMg replace and monitor Lactic acidosis suspected due albuterol / metformin use no definite source of infection, monitor for now; no evidence of severe sepsis at this time DM hold orals, use sliding scale Full Code DVT pptx, Lovenox reason for continued hospitalization: awaiting tolerance of po Time Spent With Patient Time: Total time managing care of this patient today ____ minutes. Quality Stroke Does the patient have a stroke diagnosis?: No VTE Prior VTE?: No VTE Risk Level:: Medical - moderate - high VTE Device Contraindication: Treatment Not Indicated VTE Drug Contraindication: N/A - Med Ordered
[2022-10-03 16:24] LABS: Glucose, Whole Blood 270 mg/dL (60-115)
[2022-10-03 20:46] LABS: Glucose, Whole Blood 154 mg/dL (60-115)
[2022-10-03] MEDS: vancomycin HCL 1,250 MG in 0.9 % Sodium Chloride 250 ML 166.67 MG IV (21:58)
[2022-10-04] MEDS: HYDROmorphone HCl 1 MG/ML SYRINGE 1.5 MG IVPUSH ×2 (02:42→07:56)
[2022-10-04] MEDS: Piperacillin Sodium/Tazobactam 4.5 GM in 0.9 % Sodium Chloride 100 ML IV (03:23)
[2022-10-04 03:57] VITALS: BP 148/74; PULSE 76; RESP 18; TEMP 36.2; O2SAT 96
[2022-10-04] MEDS: Omeprazole 40 MG CAPSULE.DR PO (05:14)
[2022-10-04 05:55] LABS: Anion Gap 13 (12-20); Blood Urea Nitrogen 3 mg/dL (9-16); Calcium 8.1 mg/dL (8.4-10.2); Carbon Dioxide 36 mmol/L (22-29); Chloride 98 mmol/L (96-108); Creatinine Clr Calc Pharmacy 121.2; Estimated Glomerular Filt Rate > 60; Glucose Random 125 mg/dL (60-115); Potassium 3.1 mmol/L (3.3-5.1); Sodium 144 mmol/L (135-145)
[2022-10-04 06:50] VITALS: BP 148/80; PULSE 90; RESP 19; TEMP 36.1; O2SAT 95
[2022-10-04 07:13] LABS: Glucose, Whole Blood 125 mg/dL (60-115)
[2022-10-04] MEDS: Thiamine HCL 100 MG TABLET PO (07:57)
[2022-10-04] MEDS: Ferrous Sulfate 324 MG TABLET.DR PO (07:57)
[2022-10-04] MEDS: amLODIPine Besylate 5 MG TABLET PO (07:57)
[2022-10-04] MEDS: guaiFENesin LA 600 MG TAB.ER.12H PO (07:57)
[2022-10-04] MEDS: Atorvastatin Calcium 40 MG TABLET PO (07:57)
[2022-10-04] MEDS: Metoprolol Succinate ER 50 MG TAB.ER.24H PO (07:58)
[2022-10-04] MEDS: Nicotine 21 MG PATCH.TD24 TRANSDERMA (07:58)
[2022-10-04] MEDS: Folic Acid 1 MG TABLET PO (07:58)
[2022-10-04] MEDS: Magnesium Oxide 400 MG TABLET 800 MG PO (07:58)
[2022-10-04] MEDS: 0.9 % Sodium Chloride Flush 3 ML SYRINGE IVFLUSH (08:02)
[2022-10-04 08:21] VITALS: PULSE 78; RESP 16; O2SAT 95
--- NOTE | 2022-10-04 11:00 | P.DS_ITS ---
DS: Providers Provider Date of Service: 10/04/22 Date of admission: 09/23/22 09:06 Primary care physician: Jhony Howe MD DS: Diagnosis Discharge Diagnosis (1) Pleural effusion: Status: Acute (2) Fluid overload: Status: Acute (3) Acute on chronic pancreatitis: Status: Acute (4) Pneumonia: Status: Acute (5) Alcohol withdrawal: Status: Acute (6) Hypomagnesemia: Status: Acute (7) Acidosis, lactic: Status: Acute DS: Summary Hospital Course Hospital Course: The patient had prolonged hospital stay. For full details please return to EMR. Admission note HPI The patient is a 52 yo M with a PMH as outlined below who presents to the ED with complaints of sob + abdominal pain or several days duration. The patient reports that he has chronic abdominal pain since he was diagnosed with pancrea titis about 2 months ago. He is not forthcoming about his alcohol use but reports drinking in the days leading to the ED visit. He reports he became severely short of breath overnight and his abodminal pain was unbearable hence he presented here. He reports nausea and dry heaving which began after the abdominal pain. He reports no diarrhea. He reports that his pain is diffuse and similar to prior episodes of his pancreatitis. Regarding this sob, he reports this started several days ago. He reports a productive cough. He reports active smoking. Denies sick contacts. No fevers or chills reported. ED work up reveals - CT with improving pancreatitis, but still present nontheless. Lactic acidosis, hypoMg. He has been given IVF, IV analgesics (multiple rounds of IV dilaudid), IV anti-emetics, iv mag/solu-medrol/updrafts and empiric zosyn. He has been initiated on phenobarb for alcohol withdrawal. He continues to have abdominal pain and hence will be admitted for further treatment. Hospital course The patient was admitted primarily for treatment of acute on chronic alcoholic pancreatitis with associated alcohol withdrawal. Started on IV fluid and pain medication of Dilaudid along with Zofran for nausea. Was kept NPO at the beginning and diet was restarted gradually advanced as tolerated. He continued to complain of pain and nausea requiring more Zofran and Dilaudid. Became able to eat more by the end of 1 week of the hospital stay. Omeprazole was added for thought of possible alcoholic gastritis. Phenobarbital protocol was initiated along with thiamine and folic acid. The patient tolerated withdrawal well and was able to participate with Addiction team who gave him outpatient resources. He is considering seriously quitting drinking. We advise him complete absence from alcohol. The patient was noticed to have difficulty breathing and x-ray was suggestive of possible pneumonia and fluid overload. Echo was done ruling out possible heart failure as the patient responded well to treatment with Lasix, IV antibiotics along with steroids and nebulizers for possible asthma exacerbation. Was weaned down to 0 room air and was able to ambulate on room air with no reported dyspnea. Blood cultures remain negative during the hospital stay. Encouraged to quit smoking. Nicotine patches were used during the hospital stay. Continue antibiotics as prescribed for 5 more days Start omeprazole daily Oxycodone as needed for pain Zofran as needed for nausea We advise you complete abstinence from alcohol Time Spent with Patient Time attestation: Total time managing care of this patient today ____ minutes. Discharge coordination time: Greater than 30 minutes Quality: Safe Use of Opioids Does Pt have an Active Cancer Diagnosis on the Problem List?: No Quality: Stroke Does the patient have a stroke diagnosis?: No Physical Exam Vital Signs: Vital Signs: Last Vital Signs Temp 97 F 10/04/22 06:50 Pulse 78 10/04/22 08:21 Resp 16 10/04/22 08:21 BP 148/80 H 10/04/22 06:50 Pulse Ox 95 10/04/22 06:50 O2 Del Method 10/04/22 06:50 O2 Flow Rate 2 10/03/22 15:07 BMI result Body Mass Index 29.0 Const: Other: Constitutional : Awake, interactive, not in distress Neck : Normal inspection, Supple Cardiovascular : RRR, no JVP, trace lower extremity edema Respiratory : fair bilateral air entry, now crackles. no wheezing noted Gastrointestinal: soft, lax, Normal bowel sounds, no tenderness Skin : Warm, Dry Neurological : Alert & oriented x3, No focal deficit DS: Data Data Completed and Pending Completed studies during hospitalization [Text1]: Procedures Detoxification Services for Substance Abuse Treatment (06/26/22) Labs on day of discharge: Laboratory Results - last 24 hr 10/03/22 10/03/22 10/03/22 11:29 16:19 19:57 Sodium Potassium Chloride Carbon Dioxide Anion Gap BUN Creatinine Estim Creat Clear Calc Estimated GFR POC Glucose 134 H 270 H Random Glucose Calcium Random Vancomycin 16.0 10/03/22 10/04/22 10/04/22 20:37 05:25 06:50 Sodium 144 Potassium 3.1 L Chloride 98 Carbon Dioxide 36 H Anion Gap 13 BUN 3 L Creatinine 0.73 Estim Creat Clear Calc 121.2 Estimated GFR > 60 POC Glucose 154 H 125 H Random Glucose 125 H Calcium 8.1 L Random Vancomycin Preliminary micro results at discharge 10/02/22 07:35 Blood Culture - Preliminary Blood - Venous No growth after 48 hours. 10/02/22 07:34 Blood Culture - Preliminary Blood - Venous No growth after 48 hours. Imaging Chest x-ray: Radiologist's impression: ITS Impressions Chest X-Ray 09/23/22 01:22 IMPRESSION: Unremarkable examination. Abdomen/Pelvis CT 09/23/22 03:03 IMPRESSION: * Improving peripancreatic fat stranding, with resolution of previously seen peripancreatic fluid seen on 08/21/2022. Findings compatible with convalescent pancreatitis. * No fluid collections. * Hepatomegaly and diffuse hepatic steatosis. * Small pelvic free fluid, nonspecific. There is also mild fat stranding along the right lobe liver and within the greater omentum. Fat stranding along the liver is increased from prior. Consider hepatitis/steatohepatitis. Chest X-Ray 10/02/22 06:02 IMPRESSION: Small left pleural effusion. Increased left basilar opacity which could represent atelectasis or pneumonia. Discharge Plan Discharge Anticipated Discharge Date/Time: 10/04/22 10:43 Patient Disposition: Home, Self-Care Discharge Diagnosis: Acute on chronic pancreatitis Pneumonia Alcohol withdrawal Referrals: Jhony Howe MD [Primary Care Provider] - 1 Week Discharge Medications: New omeprazole 40 mg Capsule,Delayed Release(Dr/Ec) 40 mg PO DAILY@0630 30 Days Qty: 30 0RF guaifenesin [Mucinex] 600 mg Tablet Extended Release 12hr 600 mg PO BID Qty: 14 0RF azithromycin 500 mg tablet 500 mg PO DAILY 5 Days Qty: 5 0RF cefuroxime axetil 500 mg tablet 500 mg PO BID Qty: 10 0RF oxycodone 5 mg tablet 5 mg PO Q8H PRN (Reason: pain (scale score 7-10)) Qty: 12 0RF Rx Instructions: Partial Fill upon patient request. ondansetron 4 mg tablet,disintegrating 4 mg PO Q8H PRN (Reason: nausea and vomiting) Qty: 20 0RF Continued atorvastatin 40 mg tablet 1 tab PO DAILY metoprolol succinate 50 mg tablet extended release 24 hr 1 tab PO DAILY naltrexone 50 mg tablet 1 tab PO DAILY thiamine HCl (vitamin B1) [Vitamin B-1] 100 mg tablet 1 tab PO DAILY magnesium oxide 400 mg (241.3 mg magnesium) tablet 1 tab PO DAILY ferrous sulfate [FeroSul] 325 mg (65 mg iron) tablet 1 tab PO DAILY folic acid 1 mg tablet 1 tab PO DAILY multivitamin [One Daily Multivitamin] Tablet 1 tab PO DAILY albuterol sulfate [Ventolin HFA] 90 mcg/actuation HFA aerosol inhaler 2 puff inhalation BID PRN (Reason: Shortness Of Breath) amlodipine 5 mg tablet 1 tab PO DAILY metformin 1,000 mg tablet 1 tab PO DAILY nicotine 21 mg/24 hr Patch 24 Hour 21 mg transdermal DAILY Qty: 28 2RF ondansetron 4 mg tablet,disintegrating 4 mg PO Q6H PRN (Reason: nausea and vomiting) Qty: 8 0RF trazodone 150 mg tablet 1 - 2 tab PO BEDTIME Discharge Orders: Discharge Order (Routine); Ordered 10/04/22 Ordered By: Brenda Brenner Diet: Advance to usual diet Activity on Discharge: As tolerated Stand Alone Forms: Patient Portal Discharge page Care Plan Goals: Read below Health Concerns: Read below Plan of Treatment: Read below Assessment: You were admitted to the hospital for evaluation of abdominal pain from acute on chronic pancreatitis secondary to alcohol abuse. Treated with IV fluid and pain management with phenobarbital protocol for alcohol withdrawal. Your hospital stay complicated by fluid overload and pneumonia that was treated with antibiotics with good response as you were weaned off the oxygen. Continue antibiotics as prescribed for 5 more days Start omeprazole daily Oxycodone as needed for pain Zofran as needed for nausea We advise you complete abstinence from alcohol
[2022-10-04 11:15] LABS: Glucose, Whole Blood 253 mg/dL (60-115)
--- NOTE | 2022-10-04 11:21 | MHC.CM.PN ---
PT MEDICALLY CLEARED FOR D/C HOME SELF-CARE, PT TO ARRANGE TRANSPORT
== END 2022-10-04 11:45 | disposition home or self-care (01) | DRG 438 ==
LOC: HO.ED 03:51 → HO.EDOVER 09:15 → HO.S3 19:30
PROVIDERS: Emergency Medicine; Internal Medicine; Admitting Provider Family Medicine; Emergency Provider Emergency Medicine; PCP Internal Medicine; Visit Provider Student in an Organized Health Care Education/Training Program
DX: K85.20 Alcohol induced acute pancreatitis without necrosis or infection (principal); J15.9 Unspecified bacterial pneumonia; E87.20 Acidosis, unspecified; J45.21 Mild intermittent asthma with (acute) exacerbation; F10.239 Alcohol dependence with withdrawal, unspecified; J91.8 Pleural effusion in other conditions classified elsewhere; J44.1 Chronic obstructive pulmonary disease with (acute) exacerbation; J44.0 Chronic obstructive pulmonary disease with (acute) lower respiratory infection; F17.210 Nicotine dependence, cigarettes, uncomplicated; K29.20 Alcoholic gastritis without bleeding; E83.42 Hypomagnesemia; K86.0 Alcohol-induced chronic pancreatitis; E13.65 Other specified diabetes mellitus with hyperglycemia; E87.6 Hypokalemia; R06.03 Acute respiratory distress; E87.70 Fluid overload, unspecified; Z71.6 Tobacco abuse counseling; Z20.822 Contact with and (suspected) exposure to COVID-19; Z88.6 Allergy status to analgesic agent; Z88.8 Allergy status to other drugs, medicaments and biological substances; Z88.5 Allergy status to narcotic agent; Z79.84 Long term (current) use of oral hypoglycemic drugs; Z79.899 Other long term (current) drug therapy
CPT/HCPCS: 0241U; 36415; 71045; 74176; 80048; 80076; 80202; 81001; 82947; 83605; 83690; 83735; 83880; 84145; 84484; 85025; 85027; 87040; 93005; 93306; 94640; 96361; 96372; 96374; 96375; 96376; 99285; J1170; J1650; J1940; J2405; J2543; J2560; J2920; J2930; J3370; J3371; J3475; Q9957

== ENCOUNTER 2023-01-09 02:53 | Emergency (ER) | payer OTHER, SELFPAY ==
--- NOTE | 2023-01-09 | ECG_ITS ---
Test Reason : CARDIAC ARREST Blood Pressure : / mmHG Vent. Rate : 078 BPM Atrial Rate : 000 BPM P-R Int : 000 ms QRS Dur : 098 ms QT Int : 510 ms P-R-T Axes : 000 146 056 degrees QTc Int : 581 ms Atrial fibrillation Marked ST abnormality, possible lateral subendocardial injury Prolonged QT Abnormal ECG When compared with ECG of 23-SEP-2022 01:19, Significant changes have occurred Referred By: Generic ED Physician Electronically Signed By:KIRSTIE OLVERA
[2023-01-09] MEDS: 0.9 % Sodium Chloride 1,000 ML 999 ML IV ×2 (02:57→03:00)
[2023-01-09] MEDS: Calcium Chloride 1 GM/10 ML SYRINGE IVPUSH (03:00)
[2023-01-09] MEDS: Sodium Bicarbonate 8.4% 50 MEQ/50 ML SYRINGE IVPUSH (03:00)
[2023-01-09 03:09] LABS: Hematocrit 37.7 % (42.0-52.0); Hemoglobin 11.7 g/dl (14.0-18.0); Mean Corpuscular Hemoglobin 30.1 pg (27.0-33.0); Mean Corpuscular Volume 96.9 fL (80.0-98.0); Mean Platelet Volume 10.3 fL (9.4-12.4); NRBC Pct Auto 0.7 /100WBC (0.0-0.2); Platelet Count 108 X10*3/uL (160-400); Red Blood Count 3.89 X10*6/uL (4.60-5.80); Red Cell Distribution Width 12.8 % (11.0-16.0); White Blood Count 11.4 X10*3/uL (4.8-10.8)
[2023-01-09] MEDS: Amiodarone/Dextrose 150 MG/100 ML PLAST..BAG 600 MG IV (03:09)
[2023-01-09] MEDS: Insulin Regular, Human 100 UNIT/ML 3 ML VIAL 14 UNIT IVPUSH (03:13)
[2023-01-09 03:20] LABS: Partial Thromboplastin Time 28.5 SEC (26.0-36.4)
[2023-01-09] MEDS: Magnesium Sulfate/H2O 2 GM/50 ML PIGGYBACK IV (03:20)
[2023-01-09 03:24] LABS: Acetone, serum QL Negative (Negative)
[2023-01-09 03:29] LABS: Band Neutrophils Percent 5 % (3-5); Eosinophils Absolute Manual 0.1 X10*3/uL (0.0-0.4); Eosinophils Percent Manual 1 % (0-4); Lymphocytes Absolute Manual 1.9 X10*3/uL (1.2-4.9); Lymphocytes Percent Manual 17 % (20-40); Monocytes Absolute Manual 0.7 X10*3/uL (0.1-1.2); Monocytes Percent Manual 6 % (2-11); Neutrophils Absolute Manual 8.7 X10*3/uL (2.0-8.3); Neutrophils Percent Manual 71 % (45-73)
[2023-01-09 03:30] LABS: Platelet Estimate DECREASED (NORMAL); Platelet Morphology Comment NORMAL; RBC Morphology NORMAL; Toxic Vacuolation PRESENT
[2023-01-09 03:32] LABS: Alanine Aminotransferase 19 U/L (0-40); Albumin Level 2.7 g/dL (3.5-5.0); Alkaline Phosphatase 66 U/L (39-117); Anion Gap 30 (12-20); Aspartate Amino Transferase 61 U/L (5-37); Bilirubin Total 0.7 mg/dL (0.0-1.0); Blood Urea Nitrogen 7 mg/dL (9-16); Calcium 8.8 mg/dL (8.4-10.2); Carbon Dioxide 21 mmol/L (22-29); Chloride 90 mmol/L (96-108); Estimated Glomerular Filt Rate 52; Glucose Random 745 mg/dL (60-115); Magnesium 1.6 mg/dL (1.6-2.6); Potassium 2.8 mmol/L (3.3-5.1); Sodium 138 mmol/L (135-145); Total Protein 5.6 g/dL (6.5-8.0)
[2023-01-09 03:33] LABS: Lactic Acid 13.6 mmol/L (0.5-2.0)
[2023-01-09 03:36] LABS: Troponin-I High Sensitivity 6.4 ng/L (<3.5-35.0)
--- NOTE | 2023-01-09 03:42 | ED.CPR ---
HPI - CPR General Chief Complaint: Cardiac Arrest/CPR Stated Complaint: CARDIAC ARREST Time Seen by Provider: 01/09/23 03:06 Source: EMS Mode of arrival: EMS History of Present Illness HPI narrative: Patient is 52 years old but by EMS for cardiac arrest. 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 EMS came to gave another 3 shocks for VFib patient got ROSC for few minutes CPR continued multiple doses of epinephrine given , amiodarone 300 mg was givenon arrival patient was in PEA CPR continue Ambu with with Igel laryngeal tube , no signs of trauma Related Data Home Medications Medication Instructions Recorded Confirmed albuterol sulfate 90 mcg/actuation 2 puff inhalation BID PRN 06/27/22 09/23/22 aerosol inhaler (Ventolin HFA) Shortness Of Breath amlodipine 5 mg tablet 1 tab PO DAILY blood pressure 06/27/22 09/23/22 atorvastatin 40 mg tablet 1 tab PO DAILY 06/27/22 09/23/22 ferrous sulfate 325 mg (65 mg 1 tab PO DAILY 06/27/22 09/23/22 iron) tablet (FeroSul) folic acid 1 mg tablet 1 tab PO DAILY 06/27/22 09/23/22 magnesium oxide 400 mg (241.3 mg 1 tab PO DAILY 06/27/22 09/23/22 magnesium) tablet metformin 1,000 mg tablet 1 tab PO DAILY diabetes mellitus 06/27/22 09/23/22 metoprolol succinate 50 mg 1 tab PO DAILY blood pressure 06/27/22 09/23/22 tablet,extended release 24 hr multivitamin (One Daily 1 tab PO DAILY 06/27/22 09/23/22 Multivitamin tablet) naltrexone 50 mg tablet 1 tab PO DAILY 06/27/22 09/23/22 thiamine HCl (vitamin B1) 100 mg 1 tab PO DAILY 06/27/22 09/23/22 tablet (Vitamin B-1) trazodone 150 mg tablet 1 - 2 tab PO BEDTIME 09/23/22 09/23/22 Previous Rx's Medication Instructions Recorded nicotine 21 mg/24 hr daily 21 mg transdermal DAILY #28 ea 07/01/22 transdermal patch ondansetron 4 mg disintegrating 4 mg PO Q6H PRN nausea and 08/21/22 tablet vomiting #8 tabs azithromycin 500 mg tablet 500 mg PO DAILY 5 days #5 tabs 10/04/22 cefuroxime axetil 500 mg tablet 500 mg PO BID #10 tabs 10/04/22 guaifenesin 600 mg tablet, 600 mg PO BID #14 tabs 10/04/22 extended release 12 hr (Mucinex) omeprazole 40 mg capsule,delayed 40 mg PO DAILY@0630 30 days #30 10/04/22 release caps ondansetron 4 mg disintegrating 4 mg PO Q8H PRN nausea and 10/04/22 tablet vomiting #20 tabs oxycodone 5 mg tablet 5 mg PO Q8H PRN pain (scale score 10/04/22 7-10) #12 tabs Allergies Allergy/AdvReac Type Severity Reaction Status Date / Time fish derived [fish] Allergy Unknown Verified 10/02/20 12:44 phenytoin [From Dilantin] Allergy rash and Verified 06/27/22 08:45 itching acetaminophen [From Vicodin] AdvReac Unknown Verified 10/02/20 12:44 hydrocodone [From Vicodin] AdvReac Unknown Verified 10/02/20 12:44 Review of Systems Review of Systems: Yes Unobtainable due to mental condition [facility] Past Medical History Medical History Acute on chronic pancreatitis Alcohol dependence Chronic pancreatitis Chronic pancreatitis due to acute alcohol intoxication Diabetes 1.5, managed as type 2 Hypertension Family History Family History Mother Alcohol dependence Diabetes CAD (coronary artery disease) HTN (hypertension) Father Alcohol dependence Social History Social History Household Members: None Housing: House Do you presently have visiting nurse or other home services: Yes Alcohol intake: current Alcohol intake frequency: 3 or more drinks per day Alcohol type: hard liquor Patient Tobacco Use Status: Current everyday Tobacco user Tobacco use type: Cigar Cigarette Packs Per Day: 1 Cigarettes Per Day: 2 Second Hand Smoke Exposure: Yes Substance Use Type: Marijuana Advance Directives: No Advance Directives Information Provided: Yes service: No Current occupational status: unemployed Physical Exam Vital Signs: Vital Signs: BMI result Body Mass Index 23.0 Appearance: CPR in Progress laryngeal tube in place Eyes: Pupils fixed and dilated ENT: Pinkish blood in the mouth Neck: Normal inspection. Neck supple. CVS: No spontaneous cardiac activity pulses palpable on CPR Respiratory: Equal air entry with ambu Abdomen: Soft not distended. Skin: Skin warm and dry. Normal skin color. Extremities: No lower extremity edema. Neuro: Unresponsive Medications Administered Discontinued Medications Generic Name Dose Route Start Last Admin Trade Name Reinaldoq PRN Reason Stop Dose Admin Calcium Chloride 1 gm 01/09/23 03:07 01/09/23 03:00 Calcium Chloride 1 Gm/10 Ml Syringe IVPUSH 01/09/23 03:08 1 gm STAT STA Administration Sodium Chloride 1,000 mls @ 999 mls/hr 01/09/23 03:06 01/09/23 03:39 Ns IV 01/09/23 04:06 Infused .Q1H1M ONE Infusion Amiodarone HCl 900 mg/ Sodium 518 mls @ 34.533 mls/hr 01/09/23 03:15 01/09/23 04:33 Chloride IVCONT Not Given .Q15H1M TAMMY Protocol 1 MG/MIN Amiodarone HCl 150 mg in 100 mls @ 600 mls/hr 01/09/23 03:07 01/09/23 03:20 Nexterone IV 01/09/23 03:16 Infused ONCE ONE Infusion Sodium Chloride 1,000 mls @ 999 mls/hr 01/09/23 03:09 01/09/23 03:39 Ns IV 01/09/23 04:09 Infused .Q1H1M ONE Infusion Magnesium Sulfate 2 gm in 50 mls @ 100 mls/hr 01/09/23 03:11 01/09/23 04:21 Magnesium Sulfate/H2o IV 01/09/23 03:40 Infused ONCE ONE Infusion Insulin Human Regular 10 unit 01/09/23 03:07 01/09/23 04:21 Insulin Regular, Human 100 Unit/Ml 3 Ml Vial IVPUSH 01/09/23 03:08 Not Given ONCE ONE Insulin Human Regular 14 unit 01/09/23 03:09 01/09/23 03:13 Insulin Regular, Human 100 Unit/Ml 3 Ml Vial IVPUSH 01/09/23 03:10 14 unit ONCE ONE Administration Sodium Bicarbonate 50 meq 01/09/23 03:07 01/09/23 03:00 Sodium Bicarbonate 8.4% 50 Meq/50 Ml Syringe IVPUSH 01/09/23 03:08 50 meq ONCE ONE Administration Medical Decision Making Medical Decision Making [facility] Narrative: patient with history of pancreatitis alcohol use hypertension and diabetes came with sudden cardiac arrest witnessed by the family CPR started at 02:14 status post 5 DC shocks , amiodarone, insulin with poor response multiple injections of epi were given calcium chloride chloride bicarb and insulin were given for POC of 745. Initially patient responded with return of the pulse again went to PEA patient pronounced at 03:39 family was at bedside Case discussed with medical imaging technologist accepted the patient case medical imaging technologist Dr. Katherine Childress MD Lab Data [facility] Lab Attestation statement: I reviewed the patient's lab results. 01/09/23 02:57 01/09/23 03:04 Labs: Lab Results 01/09/23 01/09/23 01/09/23 Range/Units 02:57 02:57 02:57 WBC 11.4 H (4.8-10.8) X10*3/uL RBC 3.89 L (4.60-5.80) X10*6/uL Hgb 11.7 L (14.0-18.0) g/dl Hct 37.7 L (42.0-52.0) % MCV 96.9 (80.0-98.0) fL MCH 30.1 (27.0-33.0) pg MCHC 31.0 (31.0-36.0) g/dl RDW 12.8 (11.0-16.0) % Plt Count 108 L D (160-400) X10*3/uL MPV 10.3 (9.4-12.4) fL Immature Gran % (Auto) Cancelled Neut % (Auto) Cancelled Lymph % (Auto) Cancelled [place] % (Auto) Cancelled Eos % (Auto) Cancelled Baso % (Auto) Cancelled Lymph # (Auto) Cancelled [place] # (Auto) Cancelled Eos # (Auto) Cancelled Baso # (Auto) Cancelled Abs Immat Gran (auto) Cancelled Absolute Neuts (auto) Cancelled Absolute Nucleated RBC 0.080 H (0.0-0.012) X10*3/uL Nucleated RBC % (auto) 0.7 H (0.0-0.2) /100WBC Neutrophils % (Manual) 71 (45-73) % Band Neutrophils % 5 (3-5) % Lymphocytes % (Manual) 17 L (20-40) % Monocytes % (Manual) 6 (2-11) % Eosinophils % (Manual) 1 (0-4) % Abs Neuts (Manual) 8.7 H (2.0-8.3) X10*3/uL Lymphocytes # (Manual) 1.9 (1.2-4.9) X10*3/uL Monocytes # (Manual) 0.7 (0.1-1.2) X10*3/uL Eosinophils # (Manual) 0.1 (0.0-0.4) X10*3/uL Toxic Vacuolation PRESENT Platelet Estimate DECREASED (NORMAL) Plt Morphology Comment NORMAL RBC Morphology NORMAL PT 12.0 (10.0-13.1) SEC INR 1.0 (0.9-1.1) APTT 28.5 (26.0-36.4) SEC Sodium (135-145) mmol/L Potassium (3.3-5.1) mmol/L Chloride (96-108) mmol/L Carbon Dioxide (22-29) mmol/L Anion Gap (12-20) BUN (9-16) mg/dL Creatinine (0.5-1.4) mg/dL Estim Creat Clear Calc Estimated GFR POC Glucose (60-115) mg/dL Random Glucose (60-115) mg/dL Lactic Acid (0.5-2.0) mmol/L Calcium (8.4-10.2) mg/dL Magnesium (1.6-2.6) mg/dL Total Bilirubin (0.0-1.0) mg/dL AST (5-37) U/L ALT (0-40) U/L Alkaline Phosphatase (39-117) U/L Troponin I High Sens 6.4 D (<3.5-35.0) ng/L Total Protein (6.5-8.0) g/dL Albumin (3.5-5.0) g/dL Acetone, Qual (Negative) COVID-19 (LIZBETH) (Negative) COVID-19 Clin Com 0401/09/23 01/09/23 Range/Units 02:57 02:57 03:04 WBC (4.8-10.8) X10*3/uL RBC (4.60-5.80) X10*6/uL Hgb (14.0-18.0) g/dl Hct (42.0-52.0) % MCV (80.0-98.0) fL MCH (27.0-33.0) pg MCHC (31.0-36.0) g/dl RDW (11.0-16.0) % Plt Count (160-400) X10*3/uL MPV (9.4-12.4) fL Immature Gran % (Auto) Neut % (Auto) Lymph % (Auto) [place] % (Auto) Eos % (Auto) Baso % (Auto) Lymph # (Auto) [place] # (Auto) Eos # (Auto) Baso # (Auto) Abs Immat Gran (auto) Absolute Neuts (auto) Absolute Nucleated RBC (0.0-0.012) X10*3/uL Nucleated RBC % (auto) (0.0-0.2) /100WBC Neutrophils % (Manual) (45-73) % Band Neutrophils % (3-5) % Lymphocytes % (Manual) (20-40) % Monocytes % (Manual) (2-11) % Eosinophils % (Manual) (0-4) % Abs Neuts (Manual) (2.0-8.3) X10*3/uL Lymphocytes # (Manual) (1.2-4.9) X10*3/uL Monocytes # (Manual) (0.1-1.2) X10*3/uL Eosinophils # (Manual) (0.0-0.4) X10*3/uL Toxic Vacuolation Platelet Estimate (NORMAL) Plt Morphology Comment RBC Morphology PT (10.0-13.1) SEC INR (0.9-1.1) APTT (26.0-36.4) SEC Sodium 138 (135-145) mmol/L Potassium 2.8 L (3.3-5.1) mmol/L Chloride 90 L (96-108) mmol/L Carbon Dioxide 21 L (22-29) mmol/L Anion Gap 30 H (12-20) BUN 7 L (9-16) mg/dL Creatinine 1.43 H (0.5-1.4) mg/dL Estim Creat Clear Calc TNP Estimated GFR 52 POC Glucose (60-115) mg/dL Random Glucose 745 H* (60-115) mg/dL Lactic Acid 13.6 H* (0.5-2.0) mmol/L Calcium 8.8 D (8.4-10.2) mg/dL Magnesium 1.6 (1.6-2.6) mg/dL Total Bilirubin 0.7 (0.0-1.0) mg/dL AST 61 H (5-37) U/L ALT 19 (0-40) U/L Alkaline Phosphatase 66 (39-117) U/L Troponin I High Sens (<3.5-35.0) ng/L Total Protein 5.6 L (6.5-8.0) g/dL Albumin 2.7 L (3.5-5.0) g/dL Acetone, Qual Negative (Negative) COVID-19 (LIZBETH) (Negative) COVID-19 Clin Com 01/09/23 01/09/23 Range/Units 03:15 03:29 WBC (4.8-10.8) X10*3/uL RBC (4.60-5.80) X10*6/uL Hgb (14.0-18.0) g/dl Hct (42.0-52.0) % MCV (80.0-98.0) fL MCH (27.0-33.0) pg MCHC (31.0-36.0) g/dl RDW (11.0-16.0) % Plt Count (160-400) X10*3/uL MPV (9.4-12.4) fL Immature Gran % (Auto) Neut % (Auto) Lymph % (Auto) [place] % (Auto) Eos % (Auto) Baso % (Auto) Lymph # (Auto) [place] # (Auto) Eos # (Auto) Baso # (Auto) Abs Immat Gran (auto) Absolute Neuts (auto) Absolute Nucleated RBC (0.0-0.012) X10*3/uL Nucleated RBC % (auto) (0.0-0.2) /100WBC Neutrophils % (Manual) (45-73) % Band Neutrophils % (3-5) % Lymphocytes % (Manual) (20-40) % Monocytes % (Manual) (2-11) % Eosinophils % (Manual) (0-4) % Abs Neuts (Manual) (2.0-8.3) X10*3/uL Lymphocytes # (Manual) (1.2-4.9) X10*3/uL Monocytes # (Manual) (0.1-1.2) X10*3/uL Eosinophils # (Manual) (0.0-0.4) X10*3/uL Toxic Vacuolation Platelet Estimate (NORMAL) Plt Morphology Comment RBC Morphology PT (10.0-13.1) SEC INR (0.9-1.1) APTT (26.0-36.4) SEC Sodium (135-145) mmol/L Potassium (3.3-5.1) mmol/L Chloride (96-108) mmol/L Carbon Dioxide (22-29) mmol/L Anion Gap (12-20) BUN (9-16) mg/dL Creatinine (0.5-1.4) mg/dL Estim Creat Clear Calc Estimated GFR POC Glucose > 600 H* (60-115) mg/dL Random Glucose (60-115) mg/dL Lactic Acid (0.5-2.0) mmol/L Calcium (8.4-10.2) mg/dL Magnesium (1.6-2.6) mg/dL Total Bilirubin (0.0-1.0) mg/dL AST (5-37) U/L ALT (0-40) U/L Alkaline Phosphatase (39-117) U/L Troponin I High Sens (<3.5-35.0) ng/L Total Protein (6.5-8.0) g/dL Albumin (3.5-5.0) g/dL Acetone, Qual (Negative) COVID-19 (LIZBETH) Negative (Negative) COVID-19 Clin Com See Note Independent Interpretation I performed an independent interpretation of an: EKG Interpretation: Nonspecific heart rhythm with PACs? AFib heart rate 78 beats per minute no acute ST elevation Procedures Intubation Time out performed: Yes Laryngoscope: fiber optic video scope ET Tube Size: 8 ET Tube Uncuffed: Yes Tube Secured Depth (cm): 25 Tube Secured Location: lips Tube Placement Confirmation: visualized tube passing through cords and equal breath sounds bilaterally Patient Tolerated Procedure: well Discharge Plan Discharge Clinical Impression: Cardiac arrest Patient Disposition: Interventions: Organ Donor Nursing Doc/Post Mortem care Last Done: 01/09/23 03:51 Discharge Date/Time: 01/09/23 06:51 Date/Time: 01/09/23 03:39
--- OUTSIDE RECORDS SUMMARY | 2023-01-09 03:44 | XMS_ITS | Continuity of Care Document ---
Author Name Unknown Organization [facility] ter Address [address] [place] [id number]- Care Team Providers Care Forepart Laster Name Role Phone Bindu BOJORQUEZ, Gladis M Primary Care Physician Encounter [facility] Date(s): 10/21/22 - 11/26/[address] [address]- Attending Physician: Jhony Howe MD Admitting Physician: Jhony Howe MD Referring Physician: Jhony Howe MD Allergies, Adverse Reactions, Alerts Substance Reaction Severity Status Dilantin rash and itching Persistent Moderate Acti ve Vicodin Active Other Food Allergy 1 Active 1pasta Immunizations Not Given Vaccine Date Status Refusal Reason pneumococcal 23-valent vaccine 12/13/17 Not Given Patient Refuses Medications acamprosate 333 mg oral delayed release tablet 1 tablet = 333 mg, By Mouth, 3 times a day, # 90 tablet, 0 Refills, Maintenance, 08/09/20 23:39:00 EST, EC Tablet, Partial fill upon patient request Start Date: 08/09/20 Status: Ordered albuterol 90 mcg/inh inhalation powder 2 puffs, Inhalation, Every 4 hours, PRN as needed, # 1 each, 0 Refills, Maintenance, 08/09/20 23:38:00 EST, Powder, Partial fill upon patient request Start Date: 08/09/20 Status: Ordered amLODIPine 5 mg oral tablet 5 mg, 1, tablet, By Mouth, Daily, # 30 tablet, Refills 0, Maintenance, 08/09/20 23:34:00 EST, Partial fill upon patient request Start Date: 08/09/20 Status: Ordered atorvastatin 40 mg oral tablet 1 tablet = 40 mg, By Mouth, Daily at bedtime, # 30 tablet, 6 Refills, Maintenance, Tablet, Route toPharmacy Electronically, [id number], [facility]/pharmacy #[id number] Start Date: 11/20/17 Stop Date: 06/18/18 Status: Ordered Fish Oil 1000 mg oral capsule 1 capsule = 1,000 mg, By Mouth, Daily, 0 Refills, Maintenance, 08/09/20 23:37:00 EST, Capsule, Partial fill upon patient request Start Date: 08/09/20 Status: Ordered folic acid 1 mg oral tablet 1 mg, By Mouth, Daily, # 30 tablet, Refills 0, Tot. Refills 0, Maintenance, 06/08/18 15:06:00 EDT, Route to Pharmacy Electronically, [id number], [facility]/pharmacy #[id number] Start Date: 06/08/18 Stop Date: 07/08/18 Status: Ordered lisinopril 20 mg oral tablet 40 mg, 2, tablet, By Mouth, Daily, # 30 tablet, Refills 0, Maintenance, 05/30/18 1:02:59 EDT Start Date: 05/30/18 Status: Ordered magnesium oxide 400 mg oral tablet 1 tablet = 400 mg, By Mouth, Daily, # 7 tablet, 0 Refills, Maintenance, 08/09/20 23:36:00 EST, Tablet, Partial fill upon patient request Start Date: 08/09/20 Stop Date: 08/16/20 Status: Ordered metFORMIN 1000 mg oral tablet 1 tablet = 1,000 mg, By Mouth, Daily, # 60 tablet, 0 Refills, Maintenance, 08/09/20 23:34:00 EST, Tablet, Partial fill upon patient request Start Date: 08/09/20 Status: Ordered Milk of Magnesia 8% oral suspension 30 mL = 2.4 Gm, By Mouth, Daily at bedtime, PRN for constipation, # 300 mL, 0 Refills, Maintenance,08/14/20 11:28:00 EST, Suspension, [facility]/pharmacy #[id number], Partial fill upon patient request, 170, cm, 08/14/20 7:16:00 EST, Height, 83.2, kg, 08/10/20 3:2... Start Date: 08/14/20 Status: Ordered Phos-NaK Oral Powder 1 pack/packet, By Mouth, 3 times a day, 0 Refills, Maintenance, 08/09/20 23:38:00 EST, Partial fillupon patient request Start Date: 08/09/20 Status: Ordered sildenafil 100 mg oral tablet 1 tablet = 100 mg, By Mouth, Daily, 1 hour before sexual activity; khalil pay, # 10 tablet, 1 Refills, Maintenance, 04/23/22 8:09:00 EDT, Tablet, [facility], Partial fill upon patient request if the prescription is for a schedule II opio... Start Date: 04/23/22 Status: Ordered sildenafil 100 mg oral tablet 1 tablet = 100 mg, By Mouth, Daily, 1 hour before sexual activity; khalil pay, # 10 tablet, 1 Refills, Maintenance, 03/16/22 12:41:00 EDT, Tablet, [facility], Partial fill upon patient request if the prescription is for a schedule II opi... Start Date: 03/16/22 Status: Ordered thiamine 100 mg oral tablet 100 mg, 1, tablet, By Mouth, Daily, # 30 tablet, Refills 0, Maintenance, 05/30/18 1:03:23 EDT Start Date: 05/30/18 Stop Date: 06/29/18 Status: Ordered traZODone 50 mg oral tablet 100 mg, 2, tablet, By Mouth, Daily at bedtime, Refills 0, Maintenance, 08/14/20 11:24:00 EST, Partial fill upon patient request Start Date: 08/14/20 Status: Ordered Zofran 4 mg oral tablet 1 tablet = 4 mg, By Mouth, Every 8 hours, PRN Nausea & Vomiting, # 30 tablet, 0 Refills, Maintenance, 08/14/20 11:29:00 EST, Tablet, [facility]/pharmacy #[id number], Partial fill upon patient request, 170, cm, 08/14/20 7:16:00 EST, Height, 83.2, kg, 08/10/20 3:29:... Start Date: 08/14/20 Status: Ordered Problem List Condition Confirmation Course Effective Dates Status Health [facility] Informant Alcohol abuse Confirmed Active Depression Confirmed Active Diabetes mellitus Confirmed Active Hypertension Confirmed Active Social History Social History Type Response Smoking Status Current some day smo ker; Tobacco user in household: No entered on: 08/29/13 Sex Patient Care team information Care Team Personnel Name: Darryl Crowder RN Position: [facility] RN Member Role: Primary Care Nurse Name: Ofelia Davila RN Position: [facility] RN Member Role: Primary Care Nurse Name: Gege Ferguson RN Position: [facility] RN Corriev Member Role: Primary Care Nurse Name: Charanjit Harrington RN Position: [facility] RN Member Role: Primary Care Nurse Name: Susanne Archibald RN Position: [facility] RN Member Role: Primary Care Nurse Name: Darryl Toney Position: [facility] RN Member Role: Primary Care Nurse Name: Meghan Meza Position: [facility] RN Member Role: Primary Care Nurse Name: Meryl Cuevas RN Position: [facility] RN Member Role: Primary Care Nurse Name: Salma Hyatt RN Position: [facility] RN Member Role: Primary Care Nurse Name: Gladis Ruano NP Position: Reference Physician Member Role: PCP Address: Address: [address] [place] [id number]- Name: Tamia Muse RN Position: [facility] RN Member Role: Primary Care Nurse Name: Alexy Gu RN Position: [facility] RN Member Role: Primary Care Nurse Name: Eliza Luciano RN Position: [facility] SN RN Member Role: Primary Care Nurse Name: Chelsea Whitney RN Position: [facility] RN Member Role: Primary Care Nurse Name: Isabel Perez RN Position: [facility] Onco RN Member Role: Primary Care Nurse Name: Mona Gibson RN, I Position: [facility] RN Member Role: Primary Care Nurse Care Team Related Persons Name: JOSE PEREZ Address: home [address] [place] [address] [place] [id number]
[2023-01-09 03:50] LABS: Glucose, Whole Blood > 600 mg/dL (60-115)
[2023-01-09 03:51] VITALS: BMI 23.0
--- NOTE | 2023-01-09 04:02 | MHC.EDTECH ---
Call out to Regional Facilities Manager @[phone]
[2023-01-09 04:18] LABS: COVID-19 Test Negative (Negative); IDNOW Serial# 6674DD1D
--- NOTE | 2023-01-09 04:22 | PC.NURSE ---
Pt to ED for cardiac arrest. Per EMS, pt was found on the ground by girlfriend unconscious. CPR was initiated in the field and ROCS was established in the field but once in the ED they lost ROCS and CPR continued until MD called the Code at 0339. Please see paper charting for all details of medication given and ACLS protocol in place.
--- NOTE | 2023-01-09 06:39 | PC.NURSE ---
ME accepting this patient. Pt being transferred to the [facility] @ this time.
[2023-01-09 07:42] LABS: Glucose, Whole Blood > 600 mg/dL (60-115)
[2023-01-09 07:45] LABS: Glucose, Whole Blood > 600 mg/dL (60-115)
--- NOTE | 2023-01-09 09:56 | PC.NURSE ---
CALL RECEIVED FROM CO OFFICE - DR HIGH HAS DECLINED THE CASE AFTER FURTHER REVIEW. CASE # [id number]
[2023-01-13 09:10] LABS: Glucose, Whole Blood > 600 mg/dL (60-115)
== END 2023-01-09 06:51 | disposition expired ==
PROVIDERS: Emergency Provider Internal Medicine
DX: I46.9 Cardiac arrest, cause unspecified (principal); Z71.6 Tobacco abuse counseling; Z20.822 Contact with and (suspected) exposure to COVID-19; Z20.828 Contact with and (suspected) exposure to other viral communicable diseases; Z79.899 Other long term (current) drug therapy; F17.210 Nicotine dependence, cigarettes, uncomplicated
CPT/HCPCS: 31500; 36415; 80053; 82009; 82947; 83605; 83735; 84484; 85007; 85027; 85610; 85730; 87635; 93005; 96361; 96374; 96375; 99284; 99285; J0171; J0283; J3475